=== PATIENT | female | born 1990 | race Hispanic/Latino ===

== ENCOUNTER 2017-12-31 14:05 | Emergency (ER) | payer OTHER ==
[2017-12-31 15:49] LABS: Absolute Monocytes 1.4 K/uL (0.1-1.3); Absolute Neutrophil 17.3 K/uL (1.8-8.0); Basophils % 0.2 % (0-1.3); Eosinophils % 0.2 % (0-4.4); Hematocrit 31.1 % (36.0-45.0); Lymphocytes % 9.8 % (15.3-44.8); MCH 25.7 pg (27.0-35.0); MCV 83.9 fL (80-100); MPV 8.1 fL (7.6-11.3); Monocytes % 6.5 % (3.3-12.3)
[2017-12-31] MEDS ORDERED: NA CHLORIDE 0.9% 1,000 ML ONE ×2 (15:50→17:56)
[2017-12-31 15:57] LABS: Bicarbonate 25 mEq/L (21-31); Glucose Level 89 mg/dL (65-120); Lipase 18 U/L (22-51); Potassium 3.7 mEq/L (3.6-5.0); Sodium Level 139 mEq/L (135-145)
[2017-12-31 16:03] LABS: ALT/SGPT 17 IU/L (10-60); AST/SGOT 13 IU/L (10-42); Albumin 3.4 g/dL (3.2-5.5); Alkaline Phosphatase 145 IU/L (42-121); BUN Blood Urea Nitrogen 9 mg/dL (6-20); Bilirubin Direct 0.1 mg/dL (0-0.2); Bilirubin Total 0.6 mg/dL (0.3-1.2)
[2017-12-31 16:05] LABS: Urine Bacteria <20 /HPF (<20); Urine Culture Reflex Order NOT NEEDED; Urine RBC <5 /HPF (NONE SEEN)
--- NOTE | 2017-12-31 16:35 | RAD REPORT ---
EXAM DESCRIPTION: US - Transvaginal Study Probe - 12/31/2017 3:49 pm CLINICAL HISTORY: Vaginal bleeding, recent COMPARISON: None. TECHNIQUE: Endovaginal sonography was performed. FINDINGS: Left ovary was not identifiable. No left adnexal mass seen. Right ovary and right adnexa s how no suspicious findings. Small amount a hemorrhagic material is still present along the endometrial cavity. No large mass or h ematoma. No mass or hematoma within the myometrium. Along the anterior margin of the uterus there is no suspicious mass or hematoma identifiable. IMPRESSION: Small amount of hemorrhagic material remaining in the endometrial cavity. No other signi ficant findings noted.
--- NOTE | 2017-12-31 16:36 | RAD REPORT ---
EXAM DESCRIPTION: US - Extremity Nonvascular Complete - 12/31/2017 3:50 pm CLINICAL HISTORY: Recent , draining wound COMPARISON: None. FINDINGS: Sonographic evaluation of the soft tissues performed at the site of . At the skin surface and extending 4-5 cm deep to the skin surface there is no abscess, hematoma or other focal a bnormality identifiable. IMPRESSION: No abscess, hematoma or focal abnormality identified.
--- NOTE | 2017-12-31 17:20 | RAD REPORT ---
EXAM DESCRIPTION: CT - Abdomen Pelvis W Contrast - 12/31/2017 5:09 pm CLINICAL HISTORY: Abdominal pain, pelvic pain, recent with continued wound drainage COMPARISON: Ultrasound imaging same date TECHNIQUE: Biphasic, helical CT imaging of the abdomen and pelvis was performed following 100 ml non -ionic IV contrast. Oral contrast was given. All CT scans are performed using dose optimization technique as appropriate and may include automated exposure control or mA/KV adjustment according to patient size. FINDINGS: No suspicious findings in the lung bases. The liver, spleen, and pancreas show no suspicious findings. Gallbladder and biliary tree are also wi thout suspicious finding. Symmetric renal function is seen with no hydronephrosis or suspicious renal mass. No pyelonephritis o r acute renal parenchymal process. No urinary bladder abnormality seen. No gastric dilatation or gastric wall thickening. No acute large or small bowel finding. No free int raperitoneal air or free intraperitoneal fluid. No bulky lymphadenopathy. Lobulated uterus is presen t not unexpected for recent . Hypodensity within the vaginal vault is presumed to be remnant hemorrhagic material. No suspicious ovarian finding. Within the peritoneal cavity there is no absces s. There is a minimal amount of stranding between the uterus in the anterior abdominal wall. There is stranding, air and small amount of fluid in the subcutaneous fatty tissues between the incisions IA in the lower abdominal musculature. No drainable fluid collection. No suspicious bony findings. IMPRESSION: Air, fluid and stranding in the subcutaneous fatty tissues between the skin incision sit e and the lower abdominal wall musculature. There is some edema within the musculature at the incisio n site. Within the subcutaneous fatty tissues, no drainable fluid collection. Minimal stranding within the peritoneal and lower pelvic extraperitoneal space. This is not unexpecte d. Within the peritoneal/ retroperitoneal spaces there is no abnormal fluid collection.
--- NOTE | 2017-12-31 17:44 | ER ---
Nurse's Notes [facility] Name: Forrest More Age: 27 yrs Sex: Female : 1990 Arrival Date: 12/31/2017 Time: 14:25 Bed 26 Private MD: Diagnosis: Infection of obstetric surgical [id number]. Abscess with cellulitis;Wound dehiscence Presentation: 12/31 14:27 Presenting complaint: EMS states: incisional drainage, started today, tl3 extremely foul smelling oozing a lot of pus and serous fluid, tender to touch, soaked two packs of 4X4's cleaning up on arrival. Transition of care: patient was not received from another setting of care. Onset of symptoms was December 31, 2017. Initial Sepsis Screen: Does the patient meet any 2 criteria? No. Patient's initial sepsis screen is negative. Does the patient have a suspected source of infection? Yes: Skin breakdown/wound. Care prior to arrival: None. 14:27 Method Of Arrival: EMS: [facility] tl3 14:27 Acuity: TAMMY 3 tl3 Triage Assessment: 14:31 General: Appears distressed, uncomfortable, well developed, well nourished, Behavior is tl3 calm, cooperative, appropriate for age, anxious, restless. Pain: Complains of pain in groin. EENT: No signs and/or symptoms were reported regarding the EENT system. Neuro: No deficits noted. Level of Consciousness is awake, alert, obeys commands, Oriented to person, place, time, situation, Appropriate for age. Cardiovascular: No deficits noted. Heart tones S1 S2 present. Respiratory: Airway is patent Trachea midline Respiratory effort is even, unlabored, Respiratory pattern is regular, symmetrical, Breath sounds are clear bilaterally. GI: No signs and/or symptoms were reported involving the gastrointestinal system. : No signs and/or symptoms were reported regarding the genitourinary system. Derm: Skin part of incision on right side oozing copious amounts of pus and serous fluid Skin is moist, Skin is Skin temperature is warm Wound noted incision. Musculoskeletal: No deficits noted. 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 - Social history:: Smoking status: Patient/guardian denies using tobacco, never smoked. Screenin:40 Abuse screen: Denies threats or abuse. Nutritional screening: No deficits noted. tl3 Tuberculosis screening: No symptoms or risk factors identified. Fall Risk None identified. Assessment: 14:39 General: Appears distressed, uncomfortable, well groomed, well developed, well tl3 nourished, Behavior is cooperative, appropriate for age, anxious. 15:40 Reassessment: No changes from previously documented assessment. Patient and/or family tl3 updated on plan of care and expected duration. Pain level reassessed. Patient is alert, oriented x 3, equal unlabored respirations, skin warm/dry/pink. family at bedside, pt made as comfortable as possible. 16:25 Reassessment: No changes from previously documented assessment. Patient and/or family tl3 updated on plan of care and expected duration. Pain level reassessed. Patient is alert, oriented x 3, equal unlabored respirations, skin warm/dry/pink. wound redressed, bedding and gown changed. 18:27 Reassessment: Patient appears in no apparent distress at this time. No changes from tl3 previously documented assessment. Patient and/or family updated on plan of care and expected duration. Pain level reassessed. Patient is alert, oriented x 3, equal unlabored respirations, skin warm/dry/pink. abx infusing without difficulty, pt resting. Vital Signs: 14:31 BP 136 / 89; Pulse 84; Resp 18; Pulse Ox 100% ; tl3 14:31 Temp 98.0(O); tl3 15:40 BP 151 / 67; Pulse 91; Resp 18; Pulse Ox 100% on R/A; tl3 16:25 BP 146 / 79; Pulse 111; Resp 18; Pulse Ox 99% ; tl3 18:27 BP 146 / 76; Pulse 101; Resp 16; Pulse Ox 99% ; tl3 18:39 Temp 100.7(O); tl3 ED Course: 14:25 Patient arrived in ED. tl3 14:26 Anam Bone NP is [facility]. pm1 14:26 Dexter Aguirre MD is Attending Physician. pm1 14:27 Jeannie Mclean, RN is Primary Nurse. tl3 14:30 Triage completed. tl3 14:31 Arm band placed on right wrist. Patient placed in an exam room, on pulse oximetry, tl3 Patient wound and pt cleaned of drainage, fluid gushes out with any movement or pressure, started today. 4x4's placed to incision. 15:40 Resting quietly. Awaiting lab results. tl3 15:40 Patient has correct armband on for positive identification. Placed in gown. Bed in low tl3 position. Call light in reach. Side rails up X2. Child being held by parent. Pulse ox on. NIBP on. 15:40 No provider procedures requiring assistance completed. Inserted saline lock: 20 gauge tl3 in left antecubital area, using aseptic technique. Blood collected. 15:40 Initial lab(s) drawn, by me, sent to lab. First set of blood cultures drawn Second set tl3 of blood cultures drawn Wound culture swab sent to lab. 15:47 Ultrasound completed. Patient tolerated well. aa4 15:48 Extremity Nonvascular Complete In Process Unspecified. EDMS 15:48 Transvaginal Study Probe In Process Unspecified. EDMS 16:[address] via stretcher. cw1 17:09 CT Abd/Pelvis - W/Contrast In Process Unspecified. EDMS 17:22 CT completed. Patient moved back from CT. cw1 17:46 initiated transfer with Gertrude ARMENTA from [facility]. eb 18:24 Dr Henderson from [facility] connected with Anam Bone for patient transfer eb consultation. 18:42 \T\[id number] Dr. Mike Olivas accepted the patient for transfer/ \T\[id number] Administrative eb approval given by [facility]. The patient will be going to med-surg and the room assignment will be given upon arrival. The [facility] team will be coming to fly the patient out as per request of Dr. Olivas. 19:51 Report given to Jamee Velasquez RN with [employer]. tl3 19:51 Mcgarry cath inserted, using sterile technique, 16 Fr., by me, balloon inflated, to tl3 gravity drainage. 19:57 Patient transferred, IV remains in place. tl3 Administered Medications: 15:51 Drug: NS 0.9% 1000 ml Route: IV; Rate: 1000 ml; Site: left antecubital; Delivery: tl3 Primary tubing; 16:05 Follow up: IV Status: Completed infusion; IV Intake: 1000ml tl3 18:00 Drug: vancoMYCIN 1 grams Route: IVPB; Infused Over: 2 hrs; Site: left antecubital; tl3 Delivery: Primary tubing; 19:59 Follow up: IV Status: Completed infusion; IV Intake: 250ml tl3 18:18 Not Given (Duplicate Order): Zosyn 3.375 grams IVPB once over 60 mins; (mix in NS 100 tl3 mL) 18:18 CANCELLED (Duplicate Order): vancoMYCIN 1 grams IVPB once over 2 hrs tl3 18:46 Drug: Tylenol 1000 mg Route: PO; tl3 20:00 Follow up: Response: No adverse reaction; Temperature is decreased tl3 19:59 Drug: Zosyn 3.375 grams Route: IVPB; Infused Over: 60 mins; Site: left antecubital; tl3 Delivery: Primary tubing; 20:00 Follow up: IV Status: Infusion continued upon transfer tl3 Intake: 16:05 IV: 1000ml; Total: 1000ml. tl3 19:59 IV: 250ml; Total: 1250ml. tl3 Outcome: 17:44 ER care complete, transfer ordered by . pm1 19:57 Transferred by helicopter [facility] tl3 19:57 Condition: stable 19:57 Instructed on the need for transfer. 20:01 Patient left the ED. tl3 Signatures: Dispatcher [employer] EDMS Franchesca Begum aa4 Cathy Le cw1 Anam Bone, AMY GRAPHITE GRINDER pm1 Jeannie Mclean RN RN tl3 Tanya Rojo Corrections: (The following items were deleted from the chart) 18:42 18:24 from [facility] connected with Anam Bone for patient transfer eb consultaion eb
--- NOTE | 2017-12-31 17:44 | EDPHYS ---
Physician Documentation [facility] Name: Forrest More Age: 27 yrs Sex: Female : 1990 Arrival Date: 12/31/2017 Time: 14:25 Bed 26 Private MD: ED Physician Dexter Aguirre HPI: 12/31 16:00 This 27 yrs old Female presents to ER via EMS with complaints of Incisional pm1 Drainage. 18:34 the patient presents with a swollen area of the suprapubic area, pain and draiange. pm1 Description: draining. Patient with section 9 days ago at [facility] of 27 week old infant due to prelabor rupture of membranes. Patient with complications of cervical cerclage and cervical insufficiency. A0. Patient noted pressure and pain to her surgical wound for the past 3 days. Chills on and off. Drainage onset today from her wound with dehiscence. Foul smelling drainage, brownish coloration . surgery performed by Dr. Adiel Isidro. Ob care Dr. Chacon. 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 - Social history:: Smoking status: Patient/guardian denies using tobacco, never smoked. ROS: 18:34 Eyes: Negative for injury, pain, redness, and discharge, ENT: Negative for injury, pm1 pain, and discharge, Neck: Negative for injury, pain, and swelling, Cardiovascular: Negative for chest pain, palpitations, and edema, Respiratory: Negative for shortness of breath, cough, wheezing, and pleuritic chest pain. 18:34 Back: Negative for injury and pain, : Negative for injury, bleeding, discharge, and swelling, MS/Extremity: Negative for injury and deformity, Neuro: Negative for headache, weakness, numbness, tingling, and seizure. 18:34 Constitutional: Positive for chills. 18:34 Abdomen/GI: Positive for suprapubic abdominal pain over section surgical wound, Negative for nausea, vomiting, and diarrhea. 18:34 Skin: Positive for Wound dehiscence and drainage onset today from . Exam: 18:34 Constitutional: This is a well developed, well nourished patient who is awake, alert, pm1 and in no acute distress. Head/Face: Normocephalic, atraumatic. Eyes: Pupils equal round and reactive to light, extra-ocular motions intact. Lids and lashes normal. Conjunctiva and sclera are non-icteric and not injected. Cornea within normal limits. Periorbital areas with no swelling, redness, or edema. Chest/axilla: Normal chest wall appearance and motion. Nontender with no deformity. No lesions are appreciated. Cardiovascular: Regular rate and rhythm with a normal S1 and S2. No gallops, murmurs, or rubs. Normal PMI, no JVD. No pulse deficits. Respiratory: Lungs have equal breath sounds bilaterally, clear to auscultation and percussion. No rales, rhonchi or wheezes noted. No increased work of breathing, no retractions or nasal flaring. 18:34 Back: No spinal tenderness. No costovertebral tenderness. Full range of motion. 18:34 MS/ Extremity: Pulses equal, no cyanosis. Neurovascular intact. Full, normal range of motion. 18:34 Abdomen/GI: Inspection: scar(s), are noted in the suprapubic area, wound dehiscence, midline, 1 cm in size with oozing drainage, Bowel sounds: normal, Palpation: soft, moderate abdominal tenderness, in the suprapubic area, rebound tenderness, is not appreciated. 18:34 Skin: Appearance: normal except for affected area, abscess, that is moderate sized, of the suprapubic area, with drainage, with surrounding cellulitis. 18:34 Neuro: Orientation: is normal, Motor: is normal, moves all fours. Vital Signs: 14:31 BP 136 / 89; Pulse 84; Resp 18; Pulse Ox 100% ; tl3 14:31 Temp 98.0(O); tl3 15:40 BP 151 / 67; Pulse 91; Resp 18; Pulse Ox 100% on R/A; tl3 16:25 BP 146 / 79; Pulse 111; Resp 18; Pulse Ox 99% ; tl3 18:27 BP 146 / 76; Pulse 101; Resp 16; Pulse Ox 99% ; tl3 18:39 Temp 100.7(O); tl3 MDM: 14:26 Patient medically screened. pm1 17:38 Data reviewed: vital signs. Data interpreted: Pulse oximetry: on room air is 100 %. pm1 Interpretation: normal. 17:38 Counseling: I had a detailed discussion with the patient and/or guardian regarding: the pm1 historical points, exam findings, and any diagnostic results supporting the discharge/admit diagnosis, lab results, radiology results, the need to transfer to another facility. 18:40 Physician consultation: was contacted at 18:32, regarding regarding transfer, patient's pm1 condition, and will see patient Dr. Olivas would like patient transferred by their [facility] team. 12/31 14:49 Order name: Basic Metabolic Panel; Complete Time: 16:35 pm12/31 14:49 Order name: CBC with Diff; Complete Time: 16:35 pm12/31 14:49 Order name: Hepatic Function; Complete Time: 16:35 pm12/31 14:49 Order name: Lipase; Complete Time: 16:35 pm12/31 14:49 Order name: Urine Microscopic Only; Complete Time: 16:35 pm12/31 14:49 Order name: CT Abd/Pelvis - W/Contrast; Complete Time: 17:30 pm12/31 15:01 Order name: Procalcitonin; Complete Time: 16:35 pm12/31 15:01 Order name: Lactate; Complete Time: 16:03 pm12/31 15:01 Order name: Blood Culture Adult (2) pm1 12/31 15:36 Order name: Urine Dipstick--Ancillary (enter results); Complete Time: 19:01 eb 12/31 15:36 Order name: Urine --Ancillary (enter results); Complete Time: 19:01 eb 12/31 15:39 Order name: Wound Culture tl3 12/31 14:49 Order name: IV Saline Lock; Complete Time: 15:48 pm12/31 14:49 Order name: Labs collected and sent; Complete Time: 15:48 pm12/31 14:49 Order name: Urine Dipstick-Ancillary (obtain specimen); Complete Time: 15:48 pm12/31 15:01 Order name: NPO; Complete Time: 15:48 pm12/31 15:19 Order name: Extremity Nonvascular Complete; Complete Time: 16:39 EDMS 12/31 15:48 Order name: Transvaginal Study Probe; Complete Time: 16:39 EDMS Administered Medications: 15:51 Drug: NS 0.9% 1000 ml Route: IV; Rate: 1000 ml; Site: left antecubital; Delivery: tl3 Primary tubing; 16:05 Follow up: IV Status: Completed infusion; IV Intake: 1000ml tl3 18:00 Drug: vancoMYCIN 1 grams Route: IVPB; Infused Over: 2 hrs; Site: left antecubital; tl3 Delivery: Primary tubing; 19:59 Follow up: IV Status: Completed infusion; IV Intake: 250ml tl3 18:18 Not Given (Duplicate Order): Zosyn 3.375 grams IVPB once over 60 mins; (mix in NS 100 tl3 mL) 18:18 CANCELLED (Duplicate Order): vancoMYCIN 1 grams IVPB once over 2 hrs tl3 18:46 Drug: Tylenol 1000 mg Route: PO; tl3 20:00 Follow up: Response: No adverse reaction; Temperature is decreased tl3 19:59 Drug: Zosyn 3.375 grams Route: IVPB; Infused Over: 60 mins; Site: left antecubital; tl3 Delivery: Primary tubing; 20:00 Follow up: IV Status: Infusion continued upon transfer tl3 Disposition: 01/01 12:38 Co-signature as Attending Physician, Dexter Aguirre MD. Disposition: 12/31/17 17:44 [facility] to [facility]. Diagnosis are Infection of obstetric surgical wound - . Abscess with cellulitis, Wound dehiscence. - Reason for transfer: Higher level of care. - Accepting physician is Sanna. - Condition is Stable. - Problem is new. - Symptoms have improved. Signatures: Dispatcher [employer] EDMS Anam Bone, MEDICAL ONCOLOGY PHYSICIAN MEDICAL ONCOLOGY PHYSICIAN pm1 Dexter Aguirre MD MD Jeannie Mclean RN RN tl3 Corrections: (The following items were deleted from the chart) 12/31 15:19 14:55 Extrmty Nonvasular Limited+US.RAD.BRZ ordered. EDMS EDMS 15:48 14:50 Pelvis Complete+US.RAD.BRZ ordered. EDMS EDMS 18:18 18:18 vancoMYCIN 1 grams IVPB once over 2 hrs ordered. tl3 tl3
[2017-12-31] MEDS ORDERED: PIPER/TAZO/NS 3.375gm 3.375 GM/100 ML BAG ONE (17:56)
[2017-12-31] MEDS ORDERED: VANCOMYCIN/NS 1 gm 1 GM/250 ML BAG ONE (17:56)
[2017-12-31] MEDS ORDERED: ACETAMINOPHEN 500 MG TAB ONE (18:42)
[2017-12-31 18:58] LABS: Urine Blood TRACE (NEG); Urine Glucose NEGATIVE (NEG); Urine Protein NEGATIVE (NEG); Urine Specific Gravity 1.005 (1.005-1.030); Urine pH 6.5 (5.0-7.0)
== END 2017-12-31 20:01 ==
LOC: ER 14:05
DX: O86.0 Infection of obstetric surgical wound (principal); L03.311 Cellulitis of abdominal wall
CPT/HCPCS: 36415; 51702; 74177; 76830; 76881; 80048; 80076; 81003; 81015; 81025; 83605; 83690; 84145; 85025; 87040; 87070; 87205; 96365; 96366; 96375; 99285; J2543; J3370; J7030; Q9967

== ENCOUNTER 2022-08-09 20:24 | Emergency (ER) | payer OTHER, SELFPAY ==
--- OUTSIDE RECORDS SUMMARY | 2022-08-09 20:29 | XMS REPORT | Continuity of Care Document ---
:1990 Author Organization [facility] t Address [address] [place] [address] Care Team Providers Name Role Phone Unavailable Unavailable Unavailable Payers Payer Name Policy Type Policy Number Effective Date Expiration Date S ource Problems This patient has no known problems. Allergies, Adverse Reactions, Alerts Allergy Allergy Status Severity Reaction(s) Onset Inactive Treating Comm ents Source Name Type Date Date Clinician erythrom DA Active [facility]- [place] [facility] 00:[facility]: d 00 [facility] adhesive DA Active [place] 2018-0 [facility] tape 8 [place] [facility] Active [place] 0 [facility] y[facility] 4-11 [place] 00:00: [facility] 00 are [facility] erythrom DA Active [place] 0 [facility] y[facility] 4-30 [place] [facility] 00:[facility]: d 00 [facility] adhesive DA Active [place] 2017-0 [facility] tape 4-30 [place] 00:[facility]: d 00 [facility] Medications This patient has no known medications. Procedures This patient has no known procedures. Results Test Description Test Time Test Comments Results Result [facility] e Comments SURGICAL SPECIMENS 2019-05-17 13:27:00 --------RUN DATE: 05/17/19 Becki Gaston LAB *LIVE* PAGE 1 RUN TIME: 1327 Specimen Inquiry RUN USER: INTERFACE --------PAT[facility] #: [id number] AGE/SX: 29/F ROOM: [facility] RE05/15/19REG DR: Gilma Cardoza : 91 BED: 1 DIS: 05/16/19 STATUS: DIS IN TLOC: -------- SPEC #: [id number] RECD: 05/15/19 STATUS: ЕКАТЕРИНА SHANE #: [id number] MARTHA: 05/15/[address]: Gilma Cardoza MD ENTERED: 05/15/19 SP TYPE: SURG OTHR DR: ORDERED: PATHGM5/2, PATH SPEC, H E STAIN/2, IRON STAIN, PAS STAIN, TRICHROME STAIN, PAS WO.STAIN HISTOLOGY: TISSUE ID BLK PCS ANIYA LEV / PROCEDURE DISPOSITION ____ ___ ___ ___ ___ LIVER WEDGE BX A 1 2 1 STOMACH RESECT B 2 1 TISSUES: A. LIVER WEDGE BIOPSY - Liver Biopsy B. STOMACH SUBTOTAL RESECTION - Partial Stomach CLINICAL HISTORY Morbid Obesity COMMENT Overall, the findings are consistent with fatty liver disease without steatohepatitis. There is relatively abundant steatosis, but without hepatocyte ballooning or lobular inflammation. Mild fibrosis is seen and is centered around the central veins. No significant portal tract inflammation or fibrosis is seen. Clinical correlation is recommended. FINAL DIAGNOSIS A-LIVER, WEDGE BIOPSY: - Fatty liver disease, total ANA score = 2. - Macrovesicular steatosis, score 2 - Approximately 60% of hepatocytes with large droplet number of vesicular steatosis. - No lobular inflammation, score 0. - No hepatocyte ballooning identified, score 0. - Fibrosis, stage 1A. - Mild zone 3 fibrosis with some extension into sinusoidal tracts. - Fibrosis is highlighted by Trichrome stain. - Occasional glycogenated nuclei. - Iron stain, negative for increased iron stores (0+). - PAS positive globules are not identified on PAS special stains. B-STOMACH, SLEEVE GASTRECTOMY: - Stomach with no pathologic change. CONTINUED ON NEXT PAGE --------RUN DATE: 05/17/19 Becki LUCERO *LIVE* PAGE 2 RUN TIME: 1327 Specimen Inquiry RUN USER: INTERFACE --------SPEC #: [id number] PATIENT: KVNG CHIANG #[id number] (Continued) GROSS DESCRIPTION A-LIVER BIOPSY: Received in formalin labeled "liver biopsy" is a single wedge-shaped portion of liver tissue (1.4 x 0.9 x 0.3 cm). The specimen is entirely submitted in a single cassette. B-PARTIAL STOMACH: Received in formalin labeled "partial stomach" is a sleeve gastrectomy specimen (22.5 cm x 4.5 x 2.0 cm). The serosal surface is ndiaye-pink, smooth and glistening. The serosal surface is ndiaye-pink velvety with a normal rugal folding pattern. No masses or lesions are seen. Staking Press Operator sections are submitted in cassettes B1-B2. HLH/eb MICROSCOPIC DESCRIPTION Microscopic performed. Signed SIGNATURE ON FILE Ozzy Crainricky Mckay 05/17/19 1327 -------- END OF REPORT BASIC METABOLIC PANEL 2019-05-16 07:01:00 Test Item Value Reference Range Interpretation Comme nts SODIUM (test code = NA) 139 MMOL/L 136-143 N POTASSIUM (test code = K) 4.3 MMOL/L 3.5-5.1 N CHLORIDE (test code = CL) 106 MMOL/L 98-107 CARBON DIOXIDE (test code = 14 mmol/L 24-31 L CO2) GLUCOSE (test code = GLU) 124 mg/dL 70-104 H BLOOD UREA NITROGEN (test 3.8 MG/DL 7.0-21.0 L code = BUN) GLOMERULAR FILTRATION RATE >=60 max estimate >60 The estimated glomerular (test code = GFR) filtration rate is computed usingpatient ra ce, age (>18), sex, and serum creatinine. If anyof the neede d data elements are mi ssing the Laboratory tessa ot compute an estimation of t he glomerular filtration rate . CREATININE (test code = 0.5 mg/dL 0.8-1.5 L CREAT) CALCIUM (test code = CA) 9.3 mg/dL 8.8-10.2 N [id number] 06:46:00 Test Item Value Reference Range Interpretation Comments PHOSPHOROUS (test code = PHOS) 3.0 mg/dL 2.7-4.5 N [id number] 06:44:00 Test Item Value Reference Range Interpretation Comments MAGNESIUM (test code = MAG) 2.3 mg/dL 1.4-2.6 N CBC W/AUTO [id number] 06:32:00 Test Item Value Reference Range Interpretation Comments WHITE BLOOD CELL (test code = 11.5 x10 3/uL 4.8-10.8 H WBC) RED BLOOD CELL (test code = 4.64 x10 6/uL 4.20-5.40 N RBC) HEMOGLOBIN (test code = HGB) 12.6 g/dL 14.5-20 L HEMATOCRIT (test code = HCT) 41.0 % 37.0-47.0 N MEAN CELL VOLUME (test code = 88.4 fL 81.0-99.0 N MCV) MEAN CELL HGB (test code = MCH) 27.2 pg 27-31 N MEAN CELL HGB CONCENTRATION 30.7 G/DL 33-36.5 L (test code = MCHC) RED CELL DISTRIBUTION WIDTH 13.6 % 12.9-16.9 N (test code = RDW) PLATELET COUNT (test code = 308 150-440 N PLT) MEAN PLATELET VOLUME (test code 10.8 fL 8.9-12.4 N = MPV) NEUTROPHIL % (test code = NT%) 75.5 % 42.2-75.2 H LYMPHOCYTE % (test code = LY%) 17.5 % 20.5-51.1 L MONOCYTE % (test code = MO%) 6.5 % 1.7-9.3 N EOSINOPHIL % (test code = EO%) 0.0 % 0.0-7.0 N BASOPHIL % (test code = BA%) 0.2 % 0-2.5 N NEUTROPHIL # (test code = NT#) 8.65 x10 3/uL 1.80-7.70 H LYMPHOCYTE # (test code = LY#) 2.01 x10 3/uL 1.00-4.80 N MONOCYTE # (test code = MO#) 0.74 x10 3/uL 0.00-0.80 N EOSINOPHIL # (test code = EO#) 0.00 x10 3/uL 0.00-0.45 N BASOPHIL # (test code = BA#) 0.02 x10 3/uL 0.0-0.20 N HCG SERUM [id number] 08:48:00 Test Item Value Reference Range Interpretation Comments HCG SERUM QUAL (test code = HCGQL) NEGATIVE NEGATIVE DATE OF LAST MENSTRUAL PERIOD: 03/29/19BASI METABOLIC [id number] 15:54:00 Test Item Value Reference Range Interpretation Comments SODIUM (test code 135 MMOL/L 136-143 L = NA) POTASSIUM (test 4.2 MMOL/L 3.5-5.1 N code = K) CHLORIDE (test 96 MMOL/L 98-107 L code = CL) CARBON DIOXIDE 26 mmol/L 24-31 N (test code = CO2) GLUCOSE (test code 140 mg/dL 70-104 H = GLU) BLOOD UREA 10.2 MG/DL 7.0-21.0 N NITROGEN (test code = BUN) GLOMERULAR >=60 max >60 The estimated FILTRATION RATE estimate glomerular (test code = GFR) filtration rate is computed usingpatient ra ce, age (>18), sex, and serum creatinin e. If anyof the neede d data elements a re missing the Laboratory tessa ot compute an estimation of t he glomerular filtration rate . CREATININE (test 0.4 mg/dL 0.8-1.5 L code = CREAT) CALCIUM (test code 9.3 mg/dL 8.8-10.2 N = CA) CBC W/AUTO [id number] 15:44:00 Test Item Value Reference Range Interpretation Comments WHITE BLOOD CELL (test code = 8.0 x10 3/uL 4.8-10.8 N WBC) RED BLOOD CELL (test code = 4.88 x10 6/uL 4.20-5.40 N RBC) HEMOGLOBIN (test code = HGB) 13.2 g/dL 14.5-20 L HEMATOCRIT (test code = HCT) 42.0 % 37.0-47.0 N MEAN CELL VOLUME (test code = 86.1 fL 81.0-99.0 N MCV) MEAN CELL HGB (test code = MCH) 27.0 pg 27-31 N MEAN CELL HGB CONCENTRATION 31.4 G/DL 33-36.5 L (test code = MCHC) RED CELL DISTRIBUTION WIDTH 13.4 % 12.9-16.9 N (test code = RDW) PLATELET COUNT (test code = 324 150-440 N PLT) MEAN PLATELET VOLUME (test code 10.6 fL 8.9-12.4 N = MPV) NEUTROPHIL % (test code = NT%) 58.5 % 42.2-75.2 N LYMPHOCYTE % (test code = LY%) 34.3 % 20.5-51.1 N MONOCYTE % (test code = MO%) 5.5 % 1.7-9.3 N EOSINOPHIL % (test code = EO%) 0.8 % 0.0-7.0 N BASOPHIL % (test code = BA%) 0.6 % 0-2.5 N NEUTROPHIL # (test code = NT#) 4.67 x10 3/uL 1.80-7.70 N LYMPHOCYTE # (test code = LY#) 2.74 x10 3/uL 1.00-4.80 N MONOCYTE # (test code = MO#) 0.44 x10 3/uL 0.00-0.80 N EOSINOPHIL # (test code = EO#) 0.06 x10 3/uL 0.00-0.45 N BASOPHIL # (test code = BA#) 0.05 x10 3/uL 0.0-0.20 N CBC W/AUTO [id number] 01:15:00 Test Item Value Reference Range Interpretation Comments WHITE BLOOD CELL (test code = 10.2 K/mm3 3.5-11.0 N WBC) RED BLOOD CELL (test code = RBC) 4.86 M/mm3 4.70-6.10 N HEMOGLOBIN (test code = HGB) 13.4 G/DL 10.4-14.9 N HEMATOCRIT (test code = HCT) 40.9 % 31.5-44.1 N MEAN CELL VOLUME (test code = 84.2 Fl 84.5-98.6 L MCV) MEAN CELL HGB (test code = MCH) 27.6 pg 27.0-34.2 N MEAN CELL HGB CONCETRATION (test 32.8 G/DL 31.5-34.0 N code = MCHC) RED CELL DISTRIBUTION WIDTH (test 13.8 SD 11.5-14.5 N code = RDW) PLATELET COUNT (test code = PLT) 275.0 K/mm3 150-450 N MEAN PLATELET VOLUME (test code = 11.20 fL 7.0-10.5 H MPV) NEUTROPHIL % (test code = NT%) 82.0 % 40-76 H LYMPHOCYTE % (test code = LY%) 13.0 % 20.5-51.1 L MONOCYTE % (test code = MO%) 4.7 % 1.7-9.3 N EOSINOPHIL % (test code = EO%) 0.1 % 0.0-6.0 N BASOPHIL % (test code = BA%) 0.2 % 0.0-2.0 N NEUTROPHIL # (test code = NT#) 8.35 K/mm3 1.8-7.6 H LYMPHOCYTE # (test code = LY#) 1.3 K/mm3 0.6-3.2 N MONOCYTE # (test code = MO#) 0.5 K/mm3 0.3-1.1 N EOSINOPHIL # (test code = EO#) 0.0 K/mm3 0.0-0.4 N BASOPHIL # (test code = BA#) 0.0 K/mm3 0.0-0.1 N MANUAL DIFF REQUIRED (test code = NO DIFF/SCN CRITERIA MDIFF) UA RFLX MICR CULT IF [id number] 01:12:00 Test Item Value Reference Range Interpretation Comments UA COLOR (test code = YELLOW discript YEL/STRAW COLU) UA APPEARANCE (test code CLEAR discript CLEAR = APPU) UA GLUCOSE DIPSTICK (test NEGATIVE mg/dL NEG code = DGLUU) UA BILIRUBIN DIPSTICK NEGATIVE mg/dL NEG (test code = BILU) UA KETONE DIPSTICK (test NEGATIVE mg/dL NEG code = KETU) UA SPECIFIC GRAVITY (test 1.010 SG 1.005-1.030 code = SGU) UA BLOOD DIPSTICK (test NEGATIVE mg/DL NEG code = BALDEMAR) UA PH DIPSTICK (test code 8.0 pH UNITS 5.0-7.0 A = LEONORA) UA PROTEIN DIPSTICK (test 1+ mg/dL NEG A code = PROU) UA UROBILINIOGEN DIPSTICK 0.2 mg/dL <2.0 (test code = URO) UA NITRITE DIPSTICK (test NEGATIVE SCREEN NEG code = CIRA) UA LEUKOCYTE ESTERASE NEGATIVE Leuk/mcL NEGATIVE DIPSTICK (test code = LEUU) UA WBC (test code = WBCU) 1-3 #WBC/HPF 0-3 UA RBC (test code = RBCU) 1-3 #RBC/HPF 0-3 UA SQUAMOUS CELLS (test TRACE /HPF NONE code = SQU) UA CULTURE NEEDED? (test NO, WBC<10 Criteria Culture CHK code = UACULT) less than 18 yrs old, neutropenic, or urological surgery? NOPrimary Indication for Culture: OtherOther Indication: dizzinessUA RFLX MICR CULT IF INDICATED 2019-01-10 00:59:00 Test Item Value Reference Range Interpretation Comments UA COLOR (test code = COLU) YELLOW discript YEL/STRAW UA APPEARANCE (test code = CLEAR discript CLEAR APPU) UA GLUCOSE DIPSTICK (test NEGATIVE mg/dL NEG code = DGLUU) UA BILIRUBIN DIPSTICK (test NEGATIVE mg/dL NEG code = BILU) UA KETONE DIPSTICK (test NEGATIVE mg/dL NEG code = KETU) UA SPECIFIC GRAVITY (test 1.010 SG 1.005-1.030 code = SGU) UA BLOOD DIPSTICK (test NEGATIVE mg/DL NEG code = BALDEMAR) UA PH DIPSTICK (test code = 8.0 pH UNITS 5.0-7.0 A LEONORA) UA PROTEIN DIPSTICK (test 1+ mg/dL NEG A code = PROU) UA UROBILINIOGEN DIPSTICK 0.2 mg/dL <2.0 (test code = URO) UA NITRITE DIPSTICK (test NEGATIVE SCREEN NEG code = CIRA) UA LEUKOCYTE ESTERASE NEGATIVE Leuk/mcL NEGATIVE DIPSTICK (test code = LEUU) UA CULTURE NEEDED? (test Criteria Culture CHK code = UACULT) less than 18 yrs old, neutropenic, or urological surgery? NOPrimary Indication for Culture: OtherOther Indication: dizzinessCOMPREHENSIVE METABOLIC PANEL 2019-01-10 00:56:00 Test Item Value Reference Range Interpretation Comments SODIUM (test code = NA) 133 mmol/L 134-147 L POTASSIUM (test code = 4.2 mmol/L 3.4-5.0 N K) CHLORIDE (test code = 99 mmol/L 100-108 L CL) CARBON DIOXIDE (test 26 mmol/L 21-32 N code = CO2) ANION GAP (test code = 8.0 GAP calc 4.0-15.0 N GAP) GLUCOSE (test code = 123 MG/DL 70-110 H GLU) BLOOD UREA NITROGEN 10 MG/DL 7-18 N (test code = BUN) GLOMERULAR FILTRATION >=60 max estimate >60 RATE (test code = GFR) estGFR CREATININE (test code = 0.7 MG/DL 0.6-1.0 N CREAT) TOTAL PROTEIN (test code 8.3 G/DL 6.4-8.2 H = PROT) ALBUMIN (test code = 4.1 G/DL 3.4-5.0 N ALB) GLOBULIN (test code = 4.2 GM/dL GLOB) ALBUMIN/GLOBULIN RATIO 1.0 RATIO 1.2-2.2 L (test code = A/G) CALCIUM (test code = CA) 9.4 MG/DL 8.5-10.1 N BILIRUBIN TOTAL (test 0.40 MG/DL 0.2-1.2 N code = BILT) SGOT/AST (test code = 56 Unit/L 15-37 H AST) SGPT/ALT (test code = 93 Unit/L 12-78 H ALT) ALKALINE PHOSPHATASE 113 Unit/L 45-117 N TOTAL (test code = ALKP) COMPREHENSIVE METABOLIC [id number] 17:06:00 Test Item Value Reference Range Interpretation Comments SODIUM (test code = NA) 138 mmol/L 134-147 N POTASSIUM (test code = 3.6 mmol/L 3.4-5.0 N K) CHLORIDE (test code = 105 mmol/L 100-108 N CL) CARBON DIOXIDE (test 24 mmol/L 21-32 N code = CO2) ANION GAP (test code = 9.0 GAP calc 4.0-15.0 N GAP) GLUCOSE (test code = 99 MG/DL 70-110 N GLU) BLOOD UREA NITROGEN 10 MG/DL 7-18 N (test code = BUN) GLOMERULAR FILTRATION >=60 max estimate >60 RATE (test code = GFR) estGFR CREATININE (test code = 0.5 MG/DL 0.6-1.0 L CREAT) TOTAL PROTEIN (test code 8.4 G/DL 6.4-8.2 H = PROT) ALBUMIN (test code = 4.1 G/DL 3.4-5.0 N ALB) GLOBULIN (test code = 4.3 GM/dL GLOB) ALBUMIN/GLOBULIN RATIO 1.0 RATIO 1.2-2.2 L (test code = A/G) CALCIUM (test code = CA) 9.2 MG/DL 8.5-10.1 N BILIRUBIN TOTAL (test 0.50 MG/DL 0.2-1.2 N code = BILT) SGOT/AST (test code = 88 Unit/L 15-37 H AST) SGPT/ALT (test code = 116 Unit/L 12-78 H ALT) ALKALINE PHOSPHATASE 90 Unit/L 45-117 N TOTAL (test code = ALKP) LIPID PROFILE (CORONARY RISK)2018-12-02 17:06:00 Test Item Value Reference Range Interpretation Comments TRIGLYCERIDES (test code = TRIG) 281 MG/DL 0-150 H CHOLESTEROL (test code = CHOL) 269 MG/DL 133-200 H CHOLESTEROL/HDL RATIO (test code = 6.40 RATIO >0 CHOLHDL) HDL CHOLESTEROL (test code = HDL) 42 MG/DL 40-59 N NON-HDL CHOLESTEROL (test code = 227 mg/dL <130 H NHDL) LIPOPROTEIN LDL (test code = LDL) 205 MG/DL 0-129 H LDL/HDL (test code = LDL/HDL) 4.88 Ratio 1.48-3.22 Avg H FE W/TOTAL IRON BINDING CAP.2018-12-02 17:06:00 Test Item Value Reference Range Interpretation Comments SERUM IRON (test code = IRON) 74 mcG/DL 50-170 N TOTAL IRON BINDING CAPACITY (test 426 mcG/DL 250-450 N code = TIBC) IRON SATURATION (test code = 17 % calc 12-57 N FESAT) VITAMIN B12 [id number] 17:06:00 Test Item Value Reference Range Interpretation Comments VITAMIN B12 (test code = VITB12) 851 PG/ML 183-986 N FOLIC ACID (test code = FOL) 24.80 NG/ML 3.10-17.50 H FOLATE RBC [id number] 17:06:00 Test Item Value Reference Range Interpretation Comments FOLIC ACID RBC (test 1000 ng/mL >498 Perform ed At: HD code = FOLRBC) [facility] [id number] [place], [place] [id number] Kyle L MD Ph:[phone] FOLATE RBC INTERP 397.9 ng/mL Not Estab. (test code = FOLINT) FOLATE HEMATOCRIT 39.8 % 34.0-46.6 (test code = FOLHCT) T4 [id number] 17:06:00 Test Item Value Reference Range Interpretation Comments T4 FREE (test code = T4F) 0.91 NG/DL 0.89-1.76 N THYROID STIMULATING [id number] 17:06:00 Test Item Value Reference Range Interpretation Comments THYROID STIMULATING HORMONE 1.920 mcIU/ML 0.340-4.820 N (test code = TSH) [id number] 17:06:00 Test Item Value Reference Range Interpretation Comments CORTISOL (test code = 2.9 ug/dL () Corti sheyla AM 6.2 - CORTR) 19.4 Cortisol P M 2.3 - 11.9 [id number] 17:06:00 Test Item Value Reference Range Interpretation Comments FERRITIN (test code = TESFAYE) 93.3 NG/ML 3.0-105.0 N VITAMIN B1 (THIAMINE)2018-12-02 17:06:00 Test Item Value Reference Range Interpretation Comments VITAMIN B1 95.4 nmol/L 66.5-200.0 This test was d eveloped and its (THIAMINE) performance (test code = characteristics determined by VITB1) [facility]. It has not been cleared orappro cady by the Food and Drug Administration. Performed At: [facility] [place], [place] [id number] ra Kamran PATTERSON Ph:[phone] VITAMIN D [id number] 17:06:00 Test Item Value Reference Range Interpretation Comments VITAMIN D 15.2 ng/mL 30.0-100.0 A Vitamin D defic iency has 25-HYDROXY (test been define d by the code = VITD25) [place] [facility] edicine and an Endocrine So [facility] practice guidel ine as alevel of serum 25-OH vitamin D less than 20 ng/mL (1,2).The Endocrine Society went on to further define vitamin Dinsufficiency as a level between 21 and 29 ng/mL (2).1. IOM (Ins titute of Medicine). 2010 . Dietary reference intak es for calcium and D. Day DC: [employer] .2. Aron MF, Floyd CASTANON, Caleb soto MORGAN, et al. Evaluation, treatment, and prevention of vitamin D de ficiency: an Endocrine [facility] clinical practi ce guideline. JCEM . 2010; 96(7):1911-30.P erformed At: [facility] [address] [place], [place] [id number] Lokesh Mckay MD Ph:[phone] COMPREHENSIVE METABOLIC [id number] 15:13:00 Test Item Value Reference Range Interpretation Comments SODIUM (test code = NA) 138 mmol/L 134-147 N POTASSIUM (test code = 3.6 mmol/L 3.4-5.0 N K) CHLORIDE (test code = 105 mmol/L 100-108 N CL) CARBON DIOXIDE (test 24 mmol/L 21-32 N code = CO2) ANION GAP (test code = 9.0 GAP calc 4.0-15.0 N GAP) GLUCOSE (test code = 99 MG/DL 70-110 N GLU) BLOOD UREA NITROGEN 10 MG/DL 7-18 N (test code = BUN) GLOMERULAR FILTRATION >=60 max estimate >60 RATE (test code = GFR) estGFR CREATININE (test code = 0.5 MG/DL 0.6-1.0 L CREAT) TOTAL PROTEIN (test code 8.4 G/DL 6.4-8.2 H = PROT) ALBUMIN (test code = 4.1 G/DL 3.4-5.0 N ALB) GLOBULIN (test code = 4.3 GM/dL GLOB) ALBUMIN/GLOBULIN RATIO 1.0 RATIO 1.2-2.2 L (test code = A/G) CALCIUM (test code = CA) 9.2 MG/DL 8.5-10.1 N BILIRUBIN TOTAL (test 0.50 MG/DL 0.2-1.2 N code = BILT) SGOT/AST (test code = 88 Unit/L 15-37 H AST) SGPT/ALT (test code = 116 Unit/L 12-78 H ALT) ALKALINE PHOSPHATASE 90 Unit/L 45-117 N TOTAL (test code = ALKP) LIPID PROFILE (CORONARY RISK)2018-11-30 15:13:00 Test Item Value Reference Range Interpretation Comments TRIGLYCERIDES (test code = TRIG) 281 MG/DL 0-150 H CHOLESTEROL (test code = CHOL) 269 MG/DL 133-200 H CHOLESTEROL/HDL RATIO (test code = 6.40 RATIO >0 CHOLHDL) HDL CHOLESTEROL (test code = HDL) 42 MG/DL 40-59 N NON-HDL CHOLESTEROL (test code = 227 mg/dL <130 H NHDL) LIPOPROTEIN LDL (test code = LDL) 205 MG/DL 0-129 H LDL/HDL (test code = LDL/HDL) 4.88 Ratio 1.48-3.22 Avg H FE W/TOTAL IRON BINDING CAP.2018-11-30 15:13:00 Test Item Value Reference Range Interpretation Comments SERUM IRON (test code = IRON) 74 mcG/DL 50-170 N TOTAL IRON BINDING CAPACITY (test 426 mcG/DL 250-450 N code = TIBC) IRON SATURATION (test code = 17 % calc 12-57 N FESAT) VITAMIN B12 [id number] 15:13:00 Test Item Value Reference Range Interpretation Comments VITAMIN B12 (test code = VITB12) 851 PG/ML 183-986 N FOLIC ACID (test code = FOL) 24.80 NG/ML 3.10-17.50 H FOLATE RBC [id number] 15:13:00 Test Item Value Reference Range Interpretation Comments FOLIC ACID RBC (test 1000 ng/mL >498 Perform ed At: HD code = FOLRBC) [facility] [place] [address] [place], [place] [id number] Lokesh Mckay MD Ph:[phone] FOLATE RBC INTERP 397.9 ng/mL Not Estab. (test code = FOLINT) FOLATE HEMATOCRIT 39.8 % 34.0-46.6 (test code = FOLHCT) T4 [id number] 15:13:00 Test Item Value Reference Range Interpretation Comments T4 FREE (test code = T4F) 0.91 NG/DL 0.89-1.76 N THYROID STIMULATING [id number] 15:13:00 Test Item Value Reference Range Interpretation Comments THYROID STIMULATING HORMONE 1.920 mcIU/ML 0.340-4.820 N (test code = TSH) [id number] 15:13:00 Test Item Value Reference Range Interpretation Comments CORTISOL (test code = 2.9 ug/dL () Corti sheyla AM 6.2 - CORTR) 19.4 Cortisol P M 2.3 - 11.9 [id number] 15:13:00 Test Item Value Reference Range Interpretation Comments FERRITIN (test code = TESFAYE) 93.3 NG/ML 3.0-105.0 N VITAMIN B1 (THIAMINE)2018-11-30 15:13:00 Test Item Value Reference Range Interpretation Comments VITAMIN B1 (THIAMINE) (test code = VITB1) VITAMIN D [id number] 15:13:00 Test Item Value Reference Range Interpretation Comments VITAMIN D 15.2 ng/mL 30.0-100.0 A Vitamin D defic iency has 25-HYDROXY (test been define d by the code = VITD25) [place] [facility] edicine and an Endocrine So ciety practice guidel ine as alevel of serum 25-OH vitamin D less than 20 ng/mL (1,2).The Endocrine Society went on to further define vitamin Dinsufficiency as a level between 21 and 29 ng/mL (2).1. IOM (Ins titute of Medicine). 2010 . Dietary reference intak es for calcium and D. Day DC: [employer] .2. Aron MF, Floyd [place], Caleb soto MORAGN, et al. Evaluation, treatment, and prevention of vitamin D de ficiency: an Endocrine [facility] clinical practi ce guideline. JCEM . 2010; 96(2):1911-30.P erformed At: [facility] [address] [place], [place] [id number] Lokesh Mckay MD Ph:[phone] COMPREHENSIVE METABOLIC [id number] 11:40:00 Test Item Value Reference Range Interpretation Comments SODIUM (test code = NA) 138 mmol/L 134-147 N POTASSIUM (test code = 3.6 mmol/L 3.4-5.0 N K) CHLORIDE (test code = 105 mmol/L 100-108 N CL) CARBON DIOXIDE (test 24 mmol/L 21-32 N code = CO2) ANION GAP (test code = 9.0 GAP calc 4.0-15.0 N GAP) GLUCOSE (test code = 99 MG/DL 70-110 N GLU) BLOOD UREA NITROGEN 10 MG/DL 7-18 N (test code = BUN) GLOMERULAR FILTRATION >=60 max estimate >60 RATE (test code = GFR) estGFR CREATININE (test code = 0.5 MG/DL 0.6-1.0 L CREAT) TOTAL PROTEIN (test code 8.4 G/DL 6.4-8.2 H = PROT) ALBUMIN (test code = 4.1 G/DL 3.4-5.0 N ALB) GLOBULIN (test code = 4.3 GM/dL GLOB) ALBUMIN/GLOBULIN RATIO 1.0 RATIO 1.2-2.2 L (test code = A/G) CALCIUM (test code = CA) 9.2 MG/DL 8.5-10.1 N BILIRUBIN TOTAL (test 0.50 MG/DL 0.2-1.2 N code = BILT) SGOT/AST (test code = 88 Unit/L 15-37 H AST) SGPT/ALT (test code = 116 Unit/L 12-78 H ALT) ALKALINE PHOSPHATASE 90 Unit/L 45-117 N TOTAL (test code = ALKP) LIPID PROFILE (CORONARY RISK)2018-11-30 11:40:00 Test Item Value Reference Range Interpretation Comments TRIGLYCERIDES (test code = TRIG) 281 MG/DL 0-150 H CHOLESTEROL (test code = CHOL) 269 MG/DL 133-200 H CHOLESTEROL/HDL RATIO (test code = 6.40 RATIO >0 CHOLHDL) HDL CHOLESTEROL (test code = HDL) 42 MG/DL 40-59 N NON-HDL CHOLESTEROL (test code = 227 mg/dL <130 H NHDL) LIPOPROTEIN LDL (test code = LDL) 205 MG/DL 0-129 H LDL/HDL (test code = LDL/HDL) 4.88 Ratio 1.48-3.22 Avg H FE W/TOTAL IRON BINDING CAP.2018-11-30 11:40:00 Test Item Value Reference Range Interpretation Comments SERUM IRON (test code = IRON) 74 mcG/DL 50-170 N TOTAL IRON BINDING CAPACITY (test 426 mcG/DL 250-450 N code = TIBC) IRON SATURATION (test code = 17 % calc 12-57 N FESAT) VITAMIN B12 [id number] 11:40:00 Test Item Value Reference Range Interpretation Comments VITAMIN B12 (test code = VITB12) 851 PG/ML 183-986 N FOLIC ACID (test code = FOL) 24.80 NG/ML 3.10-17.50 H FOLATE RBC [id number] 11:40:00 Test Item Value Reference Range Interpretation Comments FOLIC ACID RBC (test code = FOLRBC) FOLATE HEMATOCRIT (test code = FOLHCT) T4 [id number] 11:40:00 Test Item Value Reference Range Interpretation Comments T4 FREE (test code = T4F) 0.91 NG/DL 0.89-1.76 N THYROID STIMULATING [id number] 11:40:00 Test Item Value Reference Range Interpretation Comments THYROID STIMULATING HORMONE 1.920 mcIU/ML 0.340-4.820 N (test code = TSH) [id number] 11:40:00 Test Item Value Reference Range Interpretation Comments CORTISOL (test code = 2.9 ug/dL () Corti sheyla AM 6.2 - CORTR) 19.4 Cortisol P M 2.3 - 11.9 [id number] 11:40:00 Test Item Value Reference Range Interpretation Comments FERRITIN (test code = TESFAYE) 93.3 NG/ML 3.0-105.0 N VITAMIN B1 (THIAMINE)2018-11-30 11:40:00 Test Item Value Reference Range Interpretation Comments VITAMIN B1 (THIAMINE) (test code = VITB1) VITAMIN D [id number] 11:40:00 Test Item Value Reference Range Interpretation Comments VITAMIN D 15.2 ng/mL 30.0-100.0 A Vitamin D defic iency has 25-HYDROXY (test been define d by the code = VITD25) [facility] edicine and an Endocrine [facility] practice guidel ine as alevel of serum 25-OH vitamin D less than 20 ng/mL (1,2).The Endocrine Society went on to further define vitamin Dinsufficiency as a level between 21 and 29 ng/mL (2).1. IOM (Ins titute of Medicine). 2010 . Dietary reference intak es for calcium and D. Day [place]: [employer] .2. Aron MF, Floyd NC, Caleb i MORGAN, et al. Evaluation, treatment, and prevention of vitamin D de ficiency: an Endocrine [facility] clinical practi ce guideline. JCEM . 2010; 96(7):1911-30.P erformed At: [facility] [id number] [place], [place] [id number] Lokesh Mckay MD Ph:[phone] COMPREHENSIVE METABOLIC [id number] 06:17:00 Test Item Value Reference Range Interpretation Comments SODIUM (test code = NA) 138 mmol/L 134-147 N POTASSIUM (test code = 3.6 mmol/L 3.4-5.0 N K) CHLORIDE (test code = 105 mmol/L 100-108 N CL) CARBON DIOXIDE (test 24 mmol/L 21-32 N code = CO2) ANION GAP (test code = 9.0 GAP calc 4.0-15.0 N GAP) GLUCOSE (test code = 99 MG/DL 70-110 N GLU) BLOOD UREA NITROGEN 10 MG/DL 7-18 N (test code = BUN) GLOMERULAR FILTRATION >=60 max estimate >60 RATE (test code = GFR) estGFR CREATININE (test code = 0.5 MG/DL 0.6-1.0 L CREAT) TOTAL PROTEIN (test code 8.4 G/DL 6.4-8.2 H = PROT) ALBUMIN (test code = 4.1 G/DL 3.4-5.0 N ALB) GLOBULIN (test code = 4.3 GM/dL GLOB) ALBUMIN/GLOBULIN RATIO 1.0 RATIO 1.2-2.2 L (test code = A/G) CALCIUM (test code = CA) 9.2 MG/DL 8.5-10.1 N BILIRUBIN TOTAL (test 0.50 MG/DL 0.2-1.2 N code = BILT) SGOT/AST (test code = 88 Unit/L 15-37 H AST) SGPT/ALT (test code = 116 Unit/L 12-78 H ALT) ALKALINE PHOSPHATASE 90 Unit/L 45-117 N TOTAL (test code = ALKP) LIPID PROFILE (CORONARY RISK)2018-11-30 06:17:00 Test Item Value Reference Range Interpretation Comments TRIGLYCERIDES (test code = TRIG) 281 MG/DL 0-150 H CHOLESTEROL (test code = CHOL) 269 MG/DL 133-200 H CHOLESTEROL/HDL RATIO (test code = 6.40 RATIO >0 CHOLHDL) HDL CHOLESTEROL (test code = HDL) 42 MG/DL 40-59 N NON-HDL CHOLESTEROL (test code = 227 mg/dL <130 H NHDL) LIPOPROTEIN LDL (test code = LDL) 205 MG/DL 0-129 H LDL/HDL (test code = LDL/HDL) 4.88 Ratio 1.48-3.22 Avg H FE W/TOTAL IRON BINDING CAP.2018-11-30 06:17:00 Test Item Value Reference Range Interpretation Comments SERUM IRON (test code = IRON) 74 mcG/DL 50-170 N TOTAL IRON BINDING CAPACITY (test 426 mcG/DL 250-450 N code = TIBC) IRON SATURATION (test code = 17 % calc 12-57 N FESAT) VITAMIN B12 [id number] 06:17:00 Test Item Value Reference Range Interpretation Comments VITAMIN B12 (test code = VITB12) 851 PG/ML 183-986 N FOLIC ACID (test code = FOL) 24.80 NG/ML 3.10-17.50 H FOLATE RBC [id number] 06:17:00 Test Item Value Reference Range Interpretation Comments FOLIC ACID RBC (test code = FOLRBC) FOLATE RBC INTERP (test code = FOLINT) FOLATE HEMATOCRIT (test code = FOLHCT) T4 [id number] 06:17:00 Test Item Value Reference Range Interpretation Comments T4 FREE (test code = T4F) 0.91 NG/DL 0.89-1.76 N THYROID STIMULATING [id number] 06:17:00 Test Item Value Reference Range Interpretation Comments THYROID STIMULATING HORMONE 1.920 mcIU/ML 0.340-4.820 N (test code = TSH) [id number] 06:17:00 Test Item Value Reference Range Interpretation Comments CORTISOL (test code = 2.9 ug/dL () Corti sheyla AM 6.2 - CORTR) 19.4 Cortisol P M 2.3 - 11.9 [id number] 06:17:00 Test Item Value Reference Range Interpretation Comments FERRITIN (test code = TESFAYE) 93.3 NG/ML 3.0-105.0 N VITAMIN B1 (THIAMINE)2018-11-30 06:17:00 Test Item Value Reference Range Interpretation Comments VITAMIN B1 (THIAMINE) (test code = VITB1) VITAMIN D [id number] 06:17:00 Test Item Value Reference Range Interpretation Comments VITAMIN D 25-HYDROXY (test code = VITD25) COMPREHENSIVE METABOLIC [id number] 06:17:00 Test Item Value Reference Range Interpretation Comments SODIUM (test code = NA) 138 mmol/L 134-147 N POTASSIUM (test code = 3.6 mmol/L 3.4-5.0 N K) CHLORIDE (test code = 105 mmol/L 100-108 N CL) CARBON DIOXIDE (test 24 mmol/L 21-32 N code = CO2) ANION GAP (test code = 9.0 GAP calc 4.0-15.0 N GAP) GLUCOSE (test code = 99 MG/DL 70-110 N GLU) BLOOD UREA NITROGEN 10 MG/DL 7-18 N (test code = BUN) GLOMERULAR FILTRATION >=60 max estimate >60 RATE (test code = GFR) estGFR CREATININE (test code = 0.5 MG/DL 0.6-1.0 L CREAT) TOTAL PROTEIN (test code 8.4 G/DL 6.4-8.2 H = PROT) ALBUMIN (test code = 4.1 G/DL 3.4-5.0 N ALB) GLOBULIN (test code = 4.3 GM/dL GLOB) ALBUMIN/GLOBULIN RATIO 1.0 RATIO 1.2-2.2 L (test code = A/G) CALCIUM (test code = CA) 9.2 MG/DL 8.5-10.1 N BILIRUBIN TOTAL (test 0.50 MG/DL 0.2-1.2 N code = BILT) SGOT/AST (test code = 88 Unit/L 15-37 H AST) SGPT/ALT (test code = 116 Unit/L 12-78 H ALT) ALKALINE PHOSPHATASE 90 Unit/L 45-117 N TOTAL (test code = ALKP) LIPID PROFILE (CORONARY RISK)2018-11-30 06:17:00 Test Item Value Reference Range Interpretation Comments TRIGLYCERIDES (test code = TRIG) 281 MG/DL 0-150 H CHOLESTEROL (test code = CHOL) 269 MG/DL 133-200 H CHOLESTEROL/HDL RATIO (test code = 6.40 RATIO >0 CHOLHDL) HDL CHOLESTEROL (test code = HDL) 42 MG/DL 40-59 N NON-HDL CHOLESTEROL (test code = 227 mg/dL <130 H NHDL) LIPOPROTEIN LDL (test code = LDL) 205 MG/DL 0-129 H LDL/HDL (test code = LDL/HDL) 4.88 Ratio 1.48-3.22 Avg H FE W/TOTAL IRON BINDING CAP.2018-11-30 06:17:00 Test Item Value Reference Range Interpretation Comments SERUM IRON (test code = IRON) 74 mcG/DL 50-170 N TOTAL IRON BINDING CAPACITY (test 426 mcG/DL 250-450 N code = TIBC) IRON SATURATION (test code = 17 % calc 12-57 N FESAT) VITAMIN B12 [id number] 06:17:00 Test Item Value Reference Range Interpretation Comments VITAMIN B12 (test code = VITB12) 851 PG/ML 183-986 N FOLIC ACID (test code = FOL) 24.80 NG/ML 3.10-17.50 H FOLATE RBC [id number] 06:17:00 Test Item Value Reference Range Interpretation Comments FOLIC ACID RBC (test code = FOLRBC) FOLATE RBC INTERP (test code = FOLINT) FOLATE HEMATOCRIT (test code = FOLHCT) T4 [id number] 06:17:00 Test Item Value Reference Range Interpretation Comments T4 FREE (test code = T4F) 0.91 NG/DL 0.89-1.76 N THYROID STIMULATING [id number] 06:17:00 Test Item Value Reference Range Interpretation Comments THYROID STIMULATING HORMONE 1.920 mcIU/ML 0.340-4.820 N (test code = TSH) [id number] 06:17:00 Test Item Value Reference Range Interpretation Comments CORTISOL (test code = 2.9 ug/dL () Corti sheyla AM 6.2 - CORTR) 19.4 Cortisol P M 2.3 - 11.9 [id number] 06:17:00 Test Item Value Reference Range Interpretation Comments FERRITIN (test code = TESFAYE) 93.3 NG/ML 3.0-105.0 N VITAMIN B1 (THIAMINE)2018-11-30 06:17:00 Test Item Value Reference Range Interpretation Comments VITAMIN B1 (THIAMINE) (test code = VITB1) VITAMIN D [id number] 06:17:00 Test Item Value Reference Range Interpretation Comments VITAMIN D 15.2 ng/mL 30.0-100.0 A Vitamin D defic iency has 25-HYDROXY (test been define d by the code = VITD25) [facility] edicine and an Endocrine [facility] practice guidel ine as alevel of serum 25-OH vitamin D less than 20 ng/mL (1,2).The Endocrine Society went on to further define vitamin Dinsufficiency as a level between 21 and 29 ng/mL (2).1. IOM (Ins titute of Medicine). 2010 . Dietary reference intak es for calcium and D. Day [place]: [employer] .2. Aron MF, Floyd NC, Caleb soto MORGAN, et al. Evaluation, treatment, and prevention of vitamin D de ficiency: an Endocrine [facility] clinical practi ce guideline. JCEM . 2010; 96(7):1911-30.P erformed At: [facility] [id number] [place], [place] [id number] Kyle L MD Ph:[phone] COMPREHENSIVE METABOLIC [id number] 13:33:00 Test Item Value Reference Range Interpretation Comments SODIUM (test code = NA) 138 mmol/L 134-147 N POTASSIUM (test code = 3.6 mmol/L 3.4-5.0 N K) CHLORIDE (test code = 105 mmol/L 100-108 N CL) CARBON DIOXIDE (test 24 mmol/L 21-32 N code = CO2) ANION GAP (test code = 9.0 GAP calc 4.0-15.0 N GAP) GLUCOSE (test code = 99 MG/DL 70-110 N GLU) BLOOD UREA NITROGEN 10 MG/DL 7-18 N (test code = BUN) GLOMERULAR FILTRATION >=60 max estimate >60 RATE (test code = GFR) estGFR CREATININE (test code = 0.5 MG/DL 0.6-1.0 L CREAT) TOTAL PROTEIN (test code 8.4 G/DL 6.4-8.2 H = PROT) ALBUMIN (test code = 4.1 G/DL 3.4-5.0 N ALB) GLOBULIN (test code = 4.3 GM/dL GLOB) ALBUMIN/GLOBULIN RATIO 1.0 RATIO 1.2-2.2 L (test code = A/G) CALCIUM (test code = CA) 9.2 MG/DL 8.5-10.1 N BILIRUBIN TOTAL (test 0.50 MG/DL 0.2-1.2 N code = BILT) SGOT/AST (test code = 88 Unit/L 15-37 H AST) SGPT/ALT (test code = 116 Unit/L 12-78 H ALT) ALKALINE PHOSPHATASE 90 Unit/L 45-117 N TOTAL (test code = ALKP) LIPID PROFILE (CORONARY RISK)2018-11-29 13:33:00 Test Item Value Reference Range Interpretation Comments TRIGLYCERIDES (test code = TRIG) 281 MG/DL 0-150 H CHOLESTEROL (test code = CHOL) 269 MG/DL 133-200 H CHOLESTEROL/HDL RATIO (test code = 6.40 RATIO >0 CHOLHDL) HDL CHOLESTEROL (test code = HDL) 42 MG/DL 40-59 N NON-HDL CHOLESTEROL (test code = 227 mg/dL <130 H NHDL) LIPOPROTEIN LDL (test code = LDL) 205 MG/DL 0-129 H LDL/HDL (test code = LDL/HDL) 4.88 Ratio 1.48-3.22 Avg H FE W/TOTAL IRON BINDING CAP.2018-11-29 13:33:00 Test Item Value Reference Range Interpretation Comments SERUM IRON (test code = IRON) 74 mcG/DL 50-170 N TOTAL IRON BINDING CAPACITY (test 426 mcG/DL 250-450 N code = TIBC) IRON SATURATION (test code = 17 % calc 12-57 N FESAT) VITAMIN B12 [id number] 13:33:00 Test Item Value Reference Range Interpretation Comments VITAMIN B12 (test code = VITB12) 851 PG/ML 183-986 N FOLIC ACID (test code = FOL) 24.80 NG/ML 3.10-17.50 H FOLATE RBC [id number] 13:33:00 Test Item Value Reference Range Interpretation Comments FOLIC ACID RBC (test code = FOLRBC) FOLATE RBC INTERP (test code = FOLINT) FOLATE HEMATOCRIT (test code = FOLHCT) T4 [id number] 13:33:00 Test Item Value Reference Range Interpretation Comments T4 FREE (test code = T4F) 0.91 NG/DL 0.89-1.76 N THYROID STIMULATING [id number] 13:33:00 Test Item Value Reference Range Interpretation Comments THYROID STIMULATING HORMONE 1.920 mcIU/ML 0.340-4.820 N (test code = TSH) [id number] 13:33:00 Test Item Value Reference Range Interpretation Comments CORTISOL (test code = CORTR) [id number] 13:33:00 Test Item Value Reference Range Interpretation Comments FERRITIN (test code = TESFAYE) 93.3 NG/ML 3.0-105.0 N VITAMIN B1 (THIAMINE)2018-11-29 13:33:00 Test Item Value Reference Range Interpretation Comments VITAMIN B1 (THIAMINE) (test code = VITB1) VITAMIN D [id number] 13:33:00 Test Item Value Reference Range Interpretation Comments VITAMIN D 25-HYDROXY (test code = VITD25) COMPREHENSIVE METABOLIC [id number] 12:52:00 Test Item Value Reference Range Interpretation Comments SODIUM (test code = NA) 138 mmol/L 134-147 N POTASSIUM (test code = K) 3.6 mmol/L 3.4-5.0 N CHLORIDE (test code = CL) 105 mmol/L 100-108 N CARBON DIOXIDE (test code = CO2) 24 mmol/L 21-32 N ANION GAP (test code = GAP) 9.0 GAP calc 4.0-15.0 N GLUCOSE (test code = GLU) 99 MG/DL 70-110 N BLOOD UREA NITROGEN (test code = 10 MG/DL 7-18 N BUN) GLOMERULAR FILTRATION RATE (test estGFR >60 code = GFR) CREATININE (test code = CREAT) MG/DL 0.6-1.0 TOTAL PROTEIN (test code = PROT) G/DL 6.4-8.2 ALBUMIN (test code = ALB) 4.1 G/DL 3.4-5.0 N GLOBULIN (test code = GLOB) GM/dL ALBUMIN/GLOBULIN RATIO (test RATIO 1.2-2.2 code = A/G) CALCIUM (test code = CA) 9.2 MG/DL 8.5-10.1 N BILIRUBIN TOTAL (test code = MG/DL 0.2-1.2 BILT) SGOT/AST (test code = AST) Unit/L 15-37 SGPT/ALT (test code = ALT) Unit/L 12-78 ALKALINE PHOSPHATASE TOTAL (test Unit/L 45-117 code = ALKP) LIPID PROFILE (CORONARY RISK)2018-11-29 12:52:00 Test Item Value Reference Range Interpretation Comments TRIGLYCERIDES (test code = TRIG) MG/DL 0-150 CHOLESTEROL (test code = CHOL) MG/DL 133-200 CHOLESTEROL/HDL RATIO (test code = RATIO >0 CHOLHDL) HDL CHOLESTEROL (test code = HDL) MG/DL 40-59 NON-HDL CHOLESTEROL (test code = NHDL) mg/dL <130 LIPOPROTEIN LDL (test code = LDL) MG/DL 0-129 LDL/HDL (test code = LDL/HDL) Ratio 1.48-3.22 Avg FE W/TOTAL IRON BINDING CAP.2018-11-29 12:52:00 Test Item Value Reference Range Interpretation Comments SERUM IRON (test code = IRON) mcG/DL 50-170 TOTAL IRON BINDING CAPACITY (test mcG/DL 250-450 code = TIBC) IRON SATURATION (test code = FESAT) % calc 12-57 VITAMIN B12 [id number] 12:52:00 Test Item Value Reference Range Interpretation Comments VITAMIN B12 (test code = VITB12) PG/ML 183-986 FOLIC ACID (test code = FOL) NG/ML 3.10-17.50 FOLATE RBC [id number] 12:52:00 Test Item Value Reference Range Interpretation Comments FOLIC ACID RBC (test code = FOLRBC) FOLATE RBC INTERP (test code = FOLINT) FOLATE HEMATOCRIT (test code = FOLHCT) T4 [id number] 12:52:00 Test Item Value Reference Range Interpretation Comments T4 FREE (test code = T4F) NG/DL 0.89-1.76 THYROID STIMULATING [id number] 12:52:00 Test Item Value Reference Range Interpretation Comments THYROID STIMULATING HORMONE (test mcIU/ML 0.340-4.820 code = TSH) [id number] 12:52:00 Test Item Value Reference Range Interpretation Comments CORTISOL (test code = CORTR) TESTOSTERONE FREE AND [id number] 12:52:00 Test Item Value Reference Range Interpretation Comments TESTOSTERONE (test code = TEST) TESTOSTERONE (FREE) (test code = TESTF) [id number] 12:52:00 Test Item Value Reference Range Interpretation Comments FERRITIN (test code = TESFAYE) NG/ML 3.0-105.0 VITAMIN B1 (THIAMINE)2018-11-29 12:52:00 Test Item Value Reference Range Interpretation Comments VITAMIN B1 (THIAMINE) (test code = VITB1) VITAMIN D [id number] 12:52:00 Test Item Value Reference Range Interpretation Comments VITAMIN D 25-HYDROXY (test code = VITD25) GLYCOSYLATED HEMOGLOBIN (HA1C)2018-11-29 12:52:00 Test Item Value Reference Range Interpretation Comments GLYCOSYLATED HEMOGLOBIN (HA1C) 6.3 % A1C 4.2-6.3 N (test code = GLYHGB) CBC W/AUTO [id number] 12:35:00 Test Item Value Reference Range Interpretation Comments WHITE BLOOD CELL (test code = 8.0 K/mm3 3.5-11.0 N WBC) RED BLOOD CELL (test code = RBC) 4.66 M/mm3 4.70-6.10 L HEMOGLOBIN (test code = HGB) 12.7 G/DL 10.4-14.9 N HEMATOCRIT (test code = HCT) 40.2 % 31.5-44.1 N MEAN CELL VOLUME (test code = 86.3 Fl 84.5-98.6 N MCV) MEAN CELL HGB (test code = MCH) 27.3 pg 27.0-34.2 N MEAN CELL HGB CONCETRATION (test 31.6 G/DL 31.5-34.0 N code = MCHC) RED CELL DISTRIBUTION WIDTH (test 13.9 SD 11.5-14.5 N code = RDW) PLATELET COUNT (test code = PLT) 320.0 K/mm3 150-450 N MEAN PLATELET VOLUME (test code = 10.60 fL 7.0-10.5 H MPV) NEUTROPHIL % (test code = NT%) 55.3 % 40-76 N LYMPHOCYTE % (test code = LY%) 38.3 % 20.5-51.1 N MONOCYTE % (test code = MO%) 5.1 % 1.7-9.3 N EOSINOPHIL % (test code = EO%) 1.1 % 0.0-6.0 N BASOPHIL % (test code = BA%) 0.2 % 0.0-2.0 N NEUTROPHIL # (test code = NT#) 4.42 K/mm3 1.8-7.6 N LYMPHOCYTE # (test code = LY#) 3.1 K/mm3 0.6-3.2 N MONOCYTE # (test code = MO#) 0.4 K/mm3 0.3-1.1 N EOSINOPHIL # (test code = EO#) 0.1 K/mm3 0.0-0.4 N BASOPHIL # (test code = BA#) 0.0 K/mm3 0.0-0.1 N MANUAL DIFF REQUIRED (test code = NO DIFF/SCN CRITERIA MDIFF)
[2022-08-09 21:35] LABS: Urine Blood Negative (Negative); Urine Glucose Negative (Negative); Urine Protein Negative (Negative); Urine Specific Gravity 1.025 (1.005-1.030)
[2022-08-09] MEDS ORDERED: predniSONE 20 MG TAB ONE (21:40)
[2022-08-09] MEDS ORDERED: DIPHENHYDRAMINE 25 MG TAB/CAP ONE (21:40)
--- NOTE | 2022-08-09 21:51 | EDPHYS ---
Physician Documentation [facility] Name: Forrest More Age: 32 yrs Sex: Female : 1990 Arrival Date: 08/09/2022 Time: 20:29 Bed Waiting Private MD: ED Physician Wei Galvan HPI: 08/09 21:30 This 32 yrs old Female presents to ER via Ambulatory with complaints of Eye cp Swelling. 21:30 The patient is experiencing redness, swelling, to the left eye, started after "rubbing" cp left eye. Onset: The symptoms/episode began/occurred suddenly, just prior to arrival. Duration: the symptoms are continuous. Associated signs and symptoms: Pertinent positives: itchy, Pertinent negatives: fever. Patient does not utilize any form of vision correction. Severity of symptoms: in the emergency department the symptoms are unchanged. DIRECTOR BROADCAST: 21:26 LMP 07/2022 bb Historical: - Allergies: 21:26 Azithromycin; bb - Home Meds: 21:26 None [Active]; bb - PMHx: 21:26 None; bb - PSHx: 21:26 None; bb - Immunization history:: Adult Immunizations up to date. - Social history:: Smoking status: Patient denies any tobacco usage or history of. ROS: 21:35 Constitutional: Negative for body aches, chills, fever, poor PO intake. cp 21:35 Eyes: Positive for itching, redness, swelling, of the left eye, Negative for injury or cp acute deformity, pain. 21:35 ENT: Negative for drainage from ear(s), ear pain, sore throat, difficulty swallowing, difficulty handling secretions. 21:35 Respiratory: Negative for cough, shortness of breath, wheezing. 21:35 Abdomen/GI: Negative for abdominal pain, nausea, vomiting, and diarrhea. 21:35 Skin: Negative for cellulitis, rash. 21:35 Neuro: Negative for altered mental status, headache, weakness. 21:35 All other systems are negative. Exam: 21:40 Constitutional: The patient appears in no acute distress, alert, awake, non-toxic, well cp developed, well nourished. 21:40 Head/Face: Normocephalic, atraumatic. cp 21:40 Eyes: Periorbital structures: appear normal, Pupils: equal, round, and reactive to light and accomodation, Extraocular movements: intact throughout, Conjunctiva: chemosis, that is moderate, in left eye, mild injection left eye with clear and watery drainage. Lids and lashes: appear normal, on the left. 21:40 ENT: External ear(s): are unremarkable, Nose: is normal, Mouth: Lips: moist, Oral mucosa: pink and intact, moist, Posterior pharynx: Airway: normal. 21:40 Neck: Lymph nodes: no appreciated lymphadenopathy. 21:40 Chest/axilla: Inspection: normal. 21:40 Cardiovascular: Rate: normal. 21:40 Respiratory: the patient does not display signs of respiratory distress, Respirations: normal, no use of accessory muscles, no retractions. 21:40 Skin: cellulitis, is not appreciated, no rash present. Vital Signs: 21:24 BP 132 / 59; Pulse 75; Resp 16 S; Temp 98.8(O); Pulse Ox 98% on R/A; Weight 90.72 kg bb (R); Height 5 ft. 5 in. (165.10 cm) (R); Pain 4/10; 21:24 Body Mass Index 33.28 (90.72 kg, 165.10 cm) bb MDM: 21:30 Differential diagnosis: Corneal abrasion of Corneal ulcer of Foreign body in Acute cp iritis of Acute glaucoma in 21:46 Patient medically screened. cp 21:50 Data reviewed: vital signs, nurses notes, and as a result, I will discharge patient. 21:50 Counseling: I had a detailed discussion with the patient and/or guardian regarding: the cp historical points, exam findings, and any diagnostic results supporting the discharge/admit diagnosis, the need for outpatient follow up, an opthalmologist, to return to the emergency department if symptoms worsen or persist or if there are any questions or concerns that arise at home. Response to treatment: the patient's symptoms have mildly improved after treatment, and as a result, I will discharge patient. 08/09 21:34 Order name: Urine --Ancillary (enter results) mw2 08/09 21:35 Order name: Urine Dipstick-Ancillary; Complete Time: 21:48 EDMS 08/09 21:27 Order name: Urine Dipstick-Ancillary (obtain specimen); Complete Time: 21:33 cp 08/09 21:27 Order name: Urine Test (obtain specimen); Complete Time: 21:33 cp Administered Medications: 21:40 Drug: Benadryl (diphenhydrAMINE) 50 mg Route: PO; bb 22:05 Follow up: Response: No adverse reaction bb 21:41 Drug: predniSONE 60 mg Route: PO; bb 22:05 Follow up: Response: No adverse reaction bb Disposition Summary: 08/09/22 21:50 Discharge Ordered Location: Home cp Problem: new cp Symptoms: have improved cp Condition: Stable cp Diagnosis - Other acute conjunctivitis - allergic, left eye cp Followup: cp - With: Deb Winter MD - When: 1 - 2 days - Reason: Recheck today's complaints Discharge Instructions: - Discharge Summary Sheet cp - Allergic Conjunctivitis, Adult cp Forms: - Medication Reconciliation Form cp - Thank You Letter cp - Antibiotic Education cp - Prescription Opioid Use cp Prescriptions: - Pataday Twice Daily Relief 0.1 % Ophthalmic drops - instill 1 drop by OPHTHALMIC route 2 times per day; 1 bottle; Refills: 0, cp Product Selection Permitted - Prednisone 20 mg Oral Tablet - take 2 tablets by ORAL route once daily for 5 days; 10 tablet; Refills: 0, cp Product Selection Permitted Signatures: Dispatcher [employer] Tori Hernandez RN RN Wei Fitzpatrick PA PA cp Corrections: (The following items were deleted from the chart) 08/10 21:40 12 21:40 Eyes: Periorbital structures: appear normal, Pupils: equal, round, and cp reactive to light and accomodation, Extraocular movements: intact throughout, Conjunctiva: mild injection left eye. Lids and lashes: appear normal, on the left, cp
--- NOTE | 2022-08-09 21:51 | ER ---
Nurse's Notes [facility] [place], [place] Name: Forrest More Age: 32 yrs Sex: Female : 1990 Arrival Date: 08/09/2022 Time: 20:29 Bed Waiting Private MD: Diagnosis: Other acute conjunctivitis-allergic, left eye Presentation: 08/09 21:24 Chief complaint: Patient states: she rubbed her left eye really hard and now it is bb swollen and painful. Coronavirus screen: At this time, the client does not indicate any symptoms associated with coronavirus-19. Ebola Screen: No symptoms or risks identified at this time. Initial Sepsis Screen: Does the patient meet any 2 criteria? No. Patient's initial sepsis screen is negative. Does the patient have a suspected source of infection? No. Patient's initial sepsis screen is negative. Risk Assessment: Do you want to hurt yourself or someone else? Patient reports no desire to harm self or others. Onset of symptoms was August 09, 2022. 21:24 Method Of Arrival: Ambulatory bb 21:24 Acuity: TAMMY 4 bb Triage Assessment: 21:26 General: Appears in no apparent distress. Behavior is calm, cooperative. Pain: bb Complains of pain in left eye. EENT: swelling to conjuctiva of left eye and eyelids. Neuro: Level of Consciousness is awake, alert, obeys commands, Oriented to person, place, time, situation. Cardiovascular: Capillary refill < 3 seconds Patient's skin is warm and dry. Respiratory: Respiratory effort is even, unlabored, Respiratory pattern is regular. GI: No signs and/or symptoms were reported involving the gastrointestinal system. Derm: Skin is pink, warm \T\ dry. Musculoskeletal: Circulation, motion, and sensation intact. 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 - Social history:: Smoking status: Patient denies any tobacco usage or history of. Assessment: 22:05 Reassessment: Patient is alert, oriented x 3, equal unlabored respirations, skin bb warm/dry/pink. pt verbalized understanding of and agrees to plan of care discharge instructions given pt ambulated with steady gait to exit accompanied by family. Vital Signs: 21:24 BP 132 / 59; Pulse 75; Resp 16 S; Temp 98.8(O); Pulse Ox 98% on R/A; Weight 90.72 kg bb (R); Height 5 ft. 5 in. (165.10 cm) (R); Pain 4/10; 21:24 Body Mass Index 33.28 (90.72 kg, 165.10 cm) bb ED Course: 20:29 Patient arrived in ED. bp1 21:10 Wei Pruett PA is PHCP. cp 21:10 Wei Galvan MD is Attending Physician. cp 21:26 Triage completed. bb 21:26 Arm band placed on Patient pt seen by Wei TALLEY in triage. bb 21:41 Urine collected: clean catch specimen, clear. bb 21:49 Deb Winter MD is Referral Physician. cp Administered Medications: 21:40 Drug: Benadryl (diphenhydrAMINE) 50 mg Route: PO; bb 22:05 Follow up: Response: No adverse reaction bb 21:41 Drug: predniSONE 60 mg Route: PO; bb 22:05 Follow up: Response: No adverse reaction bb Outcome: 21:50 Discharge ordered by . cp 22:06 Discharged to home ambulatory, with family. bb 22:06 Condition: stable 22:06 Discharge instructions given to patient, Instructed on discharge instructions, follow up and referral plans. medication usage, Demonstrated understanding of instructions, follow-up care, medications, Prescriptions given X 2. 22:06 Patient left the ED. bb Signatures: Tori Lovett, RN RN bb Wei Pruett PA PA cp Ursula Dewitt bp1
[2022-08-09 22:23] LABS: Urine Specific Gravity/Preg 1.025 (1.005-1.030)
[2022-08-10 06:41] VITALS: BP 132/59; TEMP 98.8; O2SAT 98
== END 2022-08-09 22:06 | disposition home or self-care (01) ==
LOC: ER 20:24
DX: H10.12 Acute atopic conjunctivitis, left eye (principal); Z88.1 Allergy status to other antibiotic agents
CPT/HCPCS: 81003; 81025; 99283; J7512

== ENCOUNTER 2022-10-03 17:01 | Emergency (ER) | payer OTHER ==
--- OUTSIDE RECORDS SUMMARY | 2022-10-03 17:06 | XMS REPORT | Continuity of Care Document ---
:1990 Author Organization [facility] t Address [address] [place] [address] Care Team Providers Name Role Phone Unavailable Unavailable Unavailable Payers Payer Name Policy Type Policy Number Effective Date Expiration Date S ource Problems This patient has no known problems. Allergies, Adverse Reactions, Alerts Allergy Allergy Status Severity Reaction(s) Onset Inactive Treating Comm ents Source Name Type Date Date Clinician erythrom DA Active SV [facility] [place] [facility] 00:00: d 00 [facility] adhesive DA Active [place] 2018-0 [facility] tape 8 [place] 00:00: d 00 [facility] DA Active SV 0 [facility] 4- [employer] 00:00: [facility] 00 are [facility] erythrom DA Active SV [facility] 430 [place] [facility] 00:00: d 00 [facility] adhesive DA Active [place] 0 [facility] tape 4-30 [place] 00:[facility]: d 00 [facility] Medications This patient has no known medications. Procedures This patient has no known procedures. Results Test Description Test Time Test Comments Results Result [facility] e Comments SURGICAL SPECIMENS 2019-05-17 13:27:00 --------RUN DATE: 05/17/19 Becki LUCERO *LIVE* PAGE 1 RUN TIME: 1327 Specimen Inquiry RUN USER: INTERFACE --------PATIENT: KVNG CHIANG LOC: PShaneka5 POD B U #: [id number] AGE/SX: 29/F ROOM: [facility] RE05/15/19REG DR: Gilma Cardoza : [birth year] BED: 1 DIS: 05/16/19 STATUS: DIS IN TLOC: -------- SPEC #: [id number] RECD: 05/15/19 STATUS: ЕКАТЕРИНА SHANE #: [id number] MARTHA: 05/15/[address]: Gilma Cardoza MD [...] Specimen Inquiry RUN USER: INTERFACE --------SPEC #: [id number] PATIENT: KVNG CHIANG #[id number] (Continued) GROSS DESCRIPTION A-LIVER BIOPSY: Received in [...] pattern. No masses or lesions are seen. Community Outreach Director sections are submitted in cassettes B1-B2. [facility]/eb MICROSCOPIC DESCRIPTION Microscopic performed. Signed SIGNATURE ON FILE DaphneymyraAddie L 05/17/19 1327 -------- END OF REPORT BASIC [...] code = CA) 9.3 mg/dL 8.8-10.2 N [id number] 06:46:00 Test Item Value Reference Range Interpretation Comments PHOSPHOROUS (test code = PHOS) 3.0 mg/dL 2.7-4.5 N [id number] 06:44:00 Test Item Value Reference Range Interpretation Comments MAGNESIUM (test code = MAG) 2.3 mg/dL 1.4-2.6 N CBC W/AUTO [id number] 06:32:00 Test Item Value Reference Range Interpretation [...] 0.02 x10 3/uL 0.0-0.20 N HCG SERUM [id number] 08:48:00 Test Item Value Reference Range Interpretation Comments HCG SERUM QUAL (test code = HCGQL) NEGATIVE NEGATIVE DATE OF LAST MENSTRUAL PERIOD: 03/29/19BASIC METABOLIC [id number] 15:54:00 Test Item Value Reference Range Interpretation [...] mg/dL 8.8-10.2 N = CA) CBC W/AUTO [id number] 15:44:00 Test Item Value Reference Range Interpretation [...] 0.05 x10 3/uL 0.0-0.20 N CBC W/AUTO [id number] 01:15:00 Test Item Value Reference Range Interpretation [...] CRITERIA MDIFF) UA RFLX MICR CULT IF [id number] 01:12:00 Test Item Value Reference Range Interpretation [...] TOTAL (test code = ALKP) COMPREHENSIVE METABOLIC [id number] 17:06:00 Test Item Value Reference Range Interpretation [...] % calc 12-57 N FESAT) VITAMIN B12 [id number] 17:06:00 Test Item Value Reference Range Interpretation Comments VITAMIN B12 (test code = VITB12) 851 PG/ML 183-986 N FOLIC ACID (test code = FOL) 24.80 NG/ML 3.10-17.50 H FOLATE RBC [id number] 17:06:00 Test Item Value Reference Range Interpretation Comments FOLIC ACID RBC (test 1000 ng/mL >498 Perform ed At: HD code = FOLRBC) [facility] [address] [place], [place] [id number] Kyle L MD Ph:[phone] FOLATE RBC INTERP 397.9 ng/mL Not Estab. (test code = FOLINT) FOLATE HEMATOCRIT 39.8 % 34.0-46.6 (test code = FOLHCT) T4 [id number] 17:06:00 Test Item Value Reference Range Interpretation Comments T4 FREE (test code = T4F) 0.91 NG/DL 0.89-1.76 N THYROID STIMULATING [id number] 17:06:00 Test Item Value Reference Range Interpretation Comments THYROID STIMULATING HORMONE 1.920 mcIU/ML 0.340-4.820 N (test code = TSH) [id number] 17:06:00 Test Item Value Reference Range Interpretation Comments CORTISOL (test code = 2.9 ug/dL () Corti sheyla AM 6.2 - CORTR) 19.4 Cortisol P M 2.3 - 11.9 [id number] 17:06:00 Test Item Value Reference Range Interpretation [...] Food and Drug Administration. Performed At: [facility] [place], [place] [id number] ra Kamran PATTERSON Ph:[phone] VITAMIN D [id number] 17:06:00 Test Item Value Reference Range Interpretation Comments VITAMIN D 15.2 ng/mL 30.0-100.0 A Vitamin D defic iency has 25-HYDROXY (test been define d by the code = VITD25) [facility] edicine and an Endocrine [facility] practice guidel ine as alevel of serum 25-OH vitamin D less than 20 ng/mL (1,2).The Endocrine Society went on to further define vitamin Dinsufficiency as a level between 21 and 29 ng/mL (2).1. IOM (Ins titute of Medicine). 2010 . Dietary reference intak es for calcium and D. Day DC: [employer] .2. Aron MF, Floyd CASTANON, Caleb soto MORGAN, et al. Evaluation, treatment, and prevention of vitamin D de ficiency: an Endocrine [facility] clinical practi ce guideline. JCEM . 2010; 96(7):1911-30.P erformed At: [facility] [address] [place], [place] [id number] Lokesh Mckay MD Ph:[phone] COMPREHENSIVE METABOLIC [id number] 15:13:00 Test Item Value Reference Range Interpretation [...] % calc 12-57 N FESAT) VITAMIN B12 [id number] 15:13:00 Test Item Value Reference Range Interpretation Comments VITAMIN B12 (test code = VITB12) 851 PG/ML 183-986 N FOLIC ACID (test code = FOL) 24.80 NG/ML 3.10-17.50 H FOLATE RBC [id number] 15:13:00 Test Item Value Reference Range Interpretation Comments FOLIC ACID RBC (test 1000 ng/mL >498 Perform ed At: HD code = FOLRBC) [facility] [address] [place], [place] [id number] Lokesh Mckay MD Ph:[phone] FOLATE RBC INTERP 397.9 ng/mL Not Estab. (test code = FOLINT) FOLATE HEMATOCRIT 39.8 % 34.0-46.6 (test code = FOLHCT) T4 [id number] 15:13:00 Test Item Value Reference Range Interpretation Comments T4 FREE (test code = T4F) 0.91 NG/DL 0.89-1.76 N THYROID STIMULATING [id number] 15:13:00 Test Item Value Reference Range Interpretation Comments THYROID STIMULATING HORMONE 1.920 mcIU/ML 0.340-4.820 N (test code = TSH) [id number] 15:13:00 Test Item Value Reference Range Interpretation Comments CORTISOL (test code = 2.9 ug/dL () Corti sheyla AM 6.2 - CORTR) 19.4 Cortisol P M 2.3 - 11.9 [id number] 15:13:00 Test Item Value Reference Range Interpretation Comments FERRITIN (test code = TESFAYE) 93.3 NG/ML 3.0-105.0 N VITAMIN B1 (THIAMINE)2018-11-30 15:13:00 Test Item Value Reference Range Interpretation Comments VITAMIN B1 (THIAMINE) (test code = VITB1) VITAMIN D [id number] 15:13:00 Test Item Value Reference Range Interpretation Comments VITAMIN D 15.2 ng/mL 30.0-100.0 A Vitamin D defic iency has 25-HYDROXY (test been define d by the code = VITD25) [facility] edicine and an Endocrine So ciety practice guidel ine as alevel of serum 25-OH vitamin D less than 20 ng/mL (1,2).The Endocrine Society went on to further define vitamin Dinsufficiency as a level between 21 and 29 ng/mL (2).1. IOM (Ins titute of Medicine). 2010 . Dietary reference intak es for calcium and D. Day DC: [employer] .2. Aron MF, Floyd CASTANON, Caleb soto MORGAN, et al. Evaluation, treatment, and prevention of vitamin D de ficiency: an Endocrine So [facility] clinical practi ce guideline. JCEM . 2010; 96(1):1911-30.P erformed At: [facility] [address] [place], [place] [id number] Lokesh Mckay MD Ph:[phone] COMPREHENSIVE METABOLIC [id number] 11:40:00 Test Item Value Reference Range Interpretation [...] % calc 12-57 N FESAT) VITAMIN B12 [id number] 11:40:00 Test Item Value Reference Range Interpretation Comments VITAMIN B12 (test code = VITB12) 851 PG/ML 183-986 N FOLIC ACID (test code = FOL) 24.80 NG/ML 3.10-17.50 H FOLATE RBC [id number] 11:40:00 Test Item Value Reference Range Interpretation Comments FOLIC ACID RBC (test code = FOLRBC) FOLATE HEMATOCRIT (test code = FOLHCT) T4 [id number] 11:40:00 Test Item Value Reference Range Interpretation Comments T4 FREE (test code = T4F) 0.91 NG/DL 0.89-1.76 N THYROID STIMULATING [id number] 11:40:00 Test Item Value Reference Range Interpretation Comments THYROID STIMULATING HORMONE 1.920 mcIU/ML 0.340-4.820 N (test code = TSH) [id number] 11:40:00 Test Item Value Reference Range Interpretation Comments CORTISOL (test code = 2.9 ug/dL () Corti sheyla AM 6.2 - CORTR) 19.4 Cortisol P M 2.3 - 11.9 [id number] 11:40:00 Test Item Value Reference Range Interpretation Comments FERRITIN (test code = TESFAYE) 93.3 NG/ML 3.0-105.0 N VITAMIN B1 (THIAMINE)2018-11-30 11:40:00 Test Item Value Reference Range Interpretation Comments VITAMIN B1 (THIAMINE) (test code = VITB1) VITAMIN D [id number] 11:40:00 Test Item Value Reference Range Interpretation Comments VITAMIN D 15.2 ng/mL 30.0-100.0 A Vitamin D defic iency has 25-HYDROXY (test been define d by the code = VITD25) [facility] edicine and an Endocrine [facility] practice guidel ine as alevel of serum 25-OH vitamin D less than 20 ng/mL (1,2).The Endocrine Society went on to further define vitamin Dinsufficiency as a level between 21 and 29 ng/mL (2).1. IOM (Ins titute of Medicine). 2010 . Dietary reference intak es for calcium and D. Day DC: [employer] .2. Aron MF, Floyd [place], Caleb i MORGAN, et al. Evaluation, treatment, and prevention of vitamin D de ficiency: an Endocrine [facility] clinical practi ce guideline. JCEM . 2010; 96(7):1911-30.P erformed At: [facility] [address] [place], [place] [id number] Lokesh Mckay MD Ph:[phone] COMPREHENSIVE METABOLIC [id number] 06:17:00 Test Item Value Reference Range Interpretation [...] % calc 12-57 N FESAT) VITAMIN B12 [id number] 06:17:00 Test Item Value Reference Range Interpretation Comments VITAMIN B12 (test code = VITB12) 851 PG/ML 183-986 N FOLIC ACID (test code = FOL) 24.80 NG/ML 3.10-17.50 H FOLATE RBC [id number] 06:17:00 Test Item Value Reference Range Interpretation Comments FOLIC ACID RBC (test code = FOLRBC) FOLATE RBC INTERP (test code = FOLINT) FOLATE HEMATOCRIT (test code = FOLHCT) T4 [id number] 06:17:00 Test Item Value Reference Range Interpretation Comments T4 FREE (test code = T4F) 0.91 NG/DL 0.89-1.76 N THYROID STIMULATING [id number] 06:17:00 Test Item Value Reference Range Interpretation Comments THYROID STIMULATING HORMONE 1.920 mcIU/ML 0.340-4.820 N (test code = TSH) [id number] 06:17:00 Test Item Value Reference Range Interpretation Comments CORTISOL (test code = 2.9 ug/dL () Corti sheyla AM 6.2 - CORTR) 19.4 Cortisol P M 2.3 - 11.9 [id number] 06:17:00 Test Item Value Reference Range Interpretation Comments FERRITIN (test code = TESFAYE) 93.3 NG/ML 3.0-105.0 N VITAMIN B1 (THIAMINE)2018-11-30 06:17:00 Test Item Value Reference Range Interpretation Comments VITAMIN B1 (THIAMINE) (test code = VITB1) VITAMIN D [id number] 06:17:00 Test Item Value Reference Range Interpretation Comments VITAMIN D 25-HYDROXY (test code = VITD25) COMPREHENSIVE METABOLIC [id number] 06:17:00 Test Item Value Reference Range Interpretation [...] % calc 12-57 N FESAT) VITAMIN B12 [id number] 06:17:00 Test Item Value Reference Range Interpretation Comments VITAMIN B12 (test code = VITB12) 851 PG/ML 183-986 N FOLIC ACID (test code = FOL) 24.80 NG/ML 3.10-17.50 H FOLATE RBC [id number] 06:17:00 Test Item Value Reference Range Interpretation Comments FOLIC ACID RBC (test code = FOLRBC) FOLATE RBC INTERP (test code = FOLINT) FOLATE HEMATOCRIT (test code = FOLHCT) T4 [id number] 06:17:00 Test Item Value Reference Range Interpretation Comments T4 FREE (test code = T4F) 0.91 NG/DL 0.89-1.76 N THYROID STIMULATING [id number] 06:17:00 Test Item Value Reference Range Interpretation Comments THYROID STIMULATING HORMONE 1.920 mcIU/ML 0.340-4.820 N (test code = TSH) [id number] 06:17:00 Test Item Value Reference Range Interpretation Comments CORTISOL (test code = 2.9 ug/dL () Corti sheyla AM 6.2 - CORTR) 19.4 Cortisol P M 2.3 - 11.9 [id number] 06:17:00 Test Item Value Reference Range Interpretation Comments FERRITIN (test code = TESFAYE) 93.3 NG/ML 3.0-105.0 N VITAMIN B1 (THIAMINE)2018-11-30 06:17:00 Test Item Value Reference Range Interpretation Comments VITAMIN B1 (THIAMINE) (test code = VITB1) VITAMIN D [id number] 06:17:00 Test Item Value Reference Range Interpretation Comments VITAMIN D 15.2 ng/mL 30.0-100.0 A Vitamin D defic iency has 25-HYDROXY (test been define d by the code = VITD25) [place] [facility] edicine and an Endocrine [facility] practice guidel ine as alevel of serum 25-OH vitamin D less than 20 ng/mL (1,2).The Endocrine Society went on to further define vitamin Dinsufficiency as a level between 21 and 29 ng/mL (2).1. IOM (Ins titute of Medicine). 2010 . Dietary reference intak es for calcium and D. Day DC: [employer] .2. Aron MF, Floyd [place], Caleb soto MORGAN, et al. Evaluation, treatment, and prevention of vitamin D de ficiency: an Endocrine So [facility] clinical practi ce guideline. JCEM . 2010; 96(7):1911-30.P erformed At: [facility] [address] [place], [place] [id number] Kyle L MD Ph:[phone] COMPREHENSIVE METABOLIC [id number] 13:33:00 Test Item Value Reference Range Interpretation [...] % calc 12-57 N FESAT) VITAMIN B12 [id number] 13:33:00 Test Item Value Reference Range Interpretation Comments VITAMIN B12 (test code = VITB12) 851 PG/ML 183-986 N FOLIC ACID (test code = FOL) 24.80 NG/ML 3.10-17.50 H FOLATE RBC [id number] 13:33:00 Test Item Value Reference Range Interpretation Comments FOLIC ACID RBC (test code = FOLRBC) FOLATE RBC INTERP (test code = FOLINT) FOLATE HEMATOCRIT (test code = FOLHCT) T4 [id number] 13:33:00 Test Item Value Reference Range Interpretation Comments T4 FREE (test code = T4F) 0.91 NG/DL 0.89-1.76 N THYROID STIMULATING [id number] 13:33:00 Test Item Value Reference Range Interpretation Comments THYROID STIMULATING HORMONE 1.920 mcIU/ML 0.340-4.820 N (test code = TSH) [id number] 13:33:00 Test Item Value Reference Range Interpretation Comments CORTISOL (test code = CORTR) [id number] 13:33:00 Test Item Value Reference Range Interpretation Comments FERRITIN (test code = TESFAYE) 93.3 NG/ML 3.0-105.0 N VITAMIN B1 (THIAMINE)2018-11-29 13:33:00 Test Item Value Reference Range Interpretation Comments VITAMIN B1 (THIAMINE) (test code = VITB1) VITAMIN D [id number] 13:33:00 Test Item Value Reference Range Interpretation Comments VITAMIN D 25-HYDROXY (test code = VITD25) COMPREHENSIVE METABOLIC [id number] 12:52:00 Test Item Value Reference Range Interpretation [...] = FESAT) % calc 12-57 VITAMIN B12 [id number] 12:52:00 Test Item Value Reference Range Interpretation Comments VITAMIN B12 (test code = VITB12) PG/ML 183-986 FOLIC ACID (test code = FOL) NG/ML 3.10-17.50 FOLATE RBC [id number] 12:52:00 Test Item Value Reference Range Interpretation Comments FOLIC ACID RBC (test code = FOLRBC) FOLATE RBC INTERP (test code = FOLINT) FOLATE HEMATOCRIT (test code = FOLHCT) T4 [id number] 12:52:00 Test Item Value Reference Range Interpretation Comments T4 FREE (test code = T4F) NG/DL 0.89-1.76 THYROID STIMULATING [id number] 12:52:00 Test Item Value Reference Range Interpretation Comments THYROID STIMULATING HORMONE (test mcIU/ML 0.340-4.820 code = TSH) [id number] 12:52:00 Test Item Value Reference Range Interpretation Comments CORTISOL (test code = CORTR) TESTOSTERONE FREE AND [id number] 12:52:00 Test Item Value Reference Range Interpretation Comments TESTOSTERONE (test code = TEST) TESTOSTERONE (FREE) (test code = TESTF) [id number] 12:52:00 Test Item Value Reference Range Interpretation Comments FERRITIN (test code = TESFAYE) NG/ML 3.0-105.0 VITAMIN B1 (THIAMINE)2018-11-29 12:52:00 Test Item Value Reference Range Interpretation Comments VITAMIN B1 (THIAMINE) (test code = VITB1) VITAMIN D [id number] 12:52:00 Test Item Value Reference Range Interpretation Comments VITAMIN D 25-HYDROXY (test code = VITD25) GLYCOSYLATED HEMOGLOBIN (HA1C)2018-11-29 12:52:00 Test Item Value Reference Range Interpretation Comments GLYCOSYLATED HEMOGLOBIN (HA1C) 6.3 % A1C 4.2-6.3 N (test code = GLYHGB) CBC W/AUTO [id number] 12:35:00 Test Item Value Reference Range Interpretation [...]
--- NOTE | 2022-10-03 18:55 | RAD REPORT ---
EXAM DESCRIPTION: US - TRANSVAG OB - 10/03/2022 6:42 pm CLINICAL HISTORY: VAGINAL BLEEDING COMPARISON: No comparisons FINDINGS: Single IUP with positive heart tones. The crown-rump length measures 1.1 cm and is c onsistent with 7 week 2 day. The yolk sac measures 2 millimeters. heart rate is measured at 158 bpm. Uterus measures 11.6 cm. Left ovary measures 4.2 x 4.2 x 4.3 cm with volume of 40 cc. A simple appear ing left adnexal cyst noted measuring 4.2 x 3.9 x 3.7 cm. Vascular flow is present within the left ov paola. The right ovary was not visualized. IMPRESSION: Single IUP with positive heart tones measuring 7 week 2 day with VENKATESH of 05/20/2023 .
[2022-10-03 19:34] LABS: Urine Blood 2+ (Negative); Urine Glucose Trace (Negative); Urine Protein Negative (Negative); Urine Specific Gravity 1.025 (1.005-1.030)
[2022-10-03 19:50] LABS: Urine Specific Gravity/Preg 1.025 (1.005-1.030)
[2022-10-03 19:57] LABS: Absolute Lymphocytes (CBC) 2.8 K/uL (0.7-4.9); Hematocrit 33.4 % (36.0-45.0); Lymphocytes % 28.6 % (15.3-44.8); MPV 8.9 fL (7.6-11.3); RBC Red Blood Cell Count 4.13 M/uL (3.86-4.86)
--- NOTE | 2022-10-03 20:03 | EDPHYS ---
Physician Documentation [facility] Name: Forrest More Age: 32 yrs Sex: Female : 1990 Arrival Date: 10/03/2022 Time: 17:04 Bed 9 Private MD: ED Physician Kvng Coello HPI: 10/03 17:45 This 32 yrs old Female presents to ER via Ambulatory with complaints of jmm Vaginal Bleeding, + Preg <12wks, Pelvic Pain. 17:45 The patient presents to the emergency department with vaginal bleeding, that is light. jmm The estimated gestational age is 7 weeks. course: care: private OB physician. Previous pregnancies: in previous pregnancies patient has had incompetent cervix. Associated signs and symptoms: Pertinent positives: vaginal bleeding, Pertinent negatives: abdominal pain, vomiting. It is unknown whether or not the patient has had similar symptoms in the past. PATIENT DAY COORDINATOR: 17:42 LMP 08/13/2022 5 17:45 2, Premature 1, Living 1 [facility] Historical: - Allergies: 17:42 Azithromycin; jh5 - Immunization history:: Adult Immunizations up to date. - Social history:: Smoking status: Patient denies any tobacco usage or history of. ROS: 17:45 Constitutional: Negative for fever, chills, and weight loss, Cardiovascular: Negative jmm for chest pain, palpitations, and edema, Respiratory: Negative for shortness of breath, cough, wheezing, and pleuritic chest pain. 17:45 : Positive for vaginal bleeding. 17:45 All other systems are negative. Exam: 17:45 Constitutional: This is a well developed, well nourished patient who is awake, alert, jmm and in no acute distress. Head/Face: atraumatic. Eyes: EOMI, no conjunctival erythema appreciated ENT: Moist Mucus Membranes Neck: Trachea midline, Supple Chest/axilla: Normal chest wall appearance and motion. Cardiovascular: Regular rate and rhythm. No edema appreciated Respiratory: Normal respirations, no respiratory distress appreciated Abdomen/GI: Non distended Back: Normal ROM Skin: General appearance color normal MS/ Extremity: Moves all extremities, no obvious deformities appreciated, no edema noted to the lower extremities Neuro: Awake and alert Psych: Behavior is normal, Mood is normal, Patient is cooperative and pleasant Vital Signs: 17:40 BP 149 / 89; Pulse 75; Resp 16; Temp 98.6; Pulse Ox 100% ; Weight 90.72 kg; Height 5 [facility] ft. 4 in. (162.56 cm); Pain 4/10; 17:40 Body Mass Index 34.33 (90.72 kg, 162.56 cm) [facility] MDM: 17:45 Patient medically screened. [facility] 20:02 Data reviewed: vital signs, nurses notes. [facility] 10/03 17:45 Order name: Abo/rh Typing; Complete Time: 20:13 [facility] 10/03 17:45 Order name: Basic Metabolic Panel [facility] 10/03 17:45 Order name: CBC with Diff; Complete Time: 20:07 [facility] 10/03 17:45 Order name: Quantitative Hcg [facility] 10/03 19:34 Order name: Urine --Ancillary (enter results); Complete Time: 19:52 2 10/03 19:35 Order name: Urine Dipstick-Ancillary; Complete Time: 19:41 [facility] 10/03 17:45 Order name: IV Saline Lock; Complete Time: 19:51 [facility] 10/03 17:45 Order name: Labs collected and sent; Complete Time: 19:51 [facility] 10/03 17:45 Order name: NPO; Complete Time: 20:15 [facility] 10/03 17:45 Order name: Urine Dipstick-Ancillary (obtain specimen); Complete Time: 19:34 [facility] 10/03 18:44 Order name: TRANSVAG OB; Complete Time: 18:59 EDMS Administered Medications: No medications were administered Disposition: 10/04 07:08 Co-signature as Attending Physician, Kvng Coello MD. rn Disposition Summary: 10/03/22 20:03 Discharge Ordered Location: Home [facility] Condition: Stable [facility] Diagnosis - Threatened [facility] Followup: [facility] - With: Private Physician - When: 2 - 3 days - Reason: Recheck today's complaints, Continuance of care, Repeat Beta-HCG (48 Hours), Re-evaluation by your physician Discharge Instructions: - Discharge Summary Sheet [facility] - Threatened Miscarriage [facility] Forms: - Medication Reconciliation Form [facility] - Thank You Letter [facility] - Antibiotic Education [facility] - Prescription Opioid Use [facility] Signatures: Dispatcher [employer] EDMS Kenny Wright PA PA jmm Nieto, Roman, MD MD rn Leah Walls RN RN jh5 Corrections: (The following items were deleted from the chart) 10/03 18:44 17:46 1st Trimest Single 1st Fetus+US.RAD.BRZ ordered. EDMS EDMS
--- NOTE | 2022-10-03 20:03 | ER ---
Nurse's Notes [facility] Name: Forrest More Age: 32 yrs Sex: Female : 1990 Arrival Date: 10/03/2022 Time: 17:04 Bed 9 Private MD: Diagnosis: Threatened Presentation: 10/03 17:40 Chief complaint: Patient states: having cramping and cervical pain started yesterday; 5 woke up with spotting today, havent saturated any pads but continued to spot through out work; pt of [facility] with hx high risk. Coronavirus screen: Vaccine status: Patient reports receiving the 2nd dose of the covid vaccine. Client denies travel out of the [place] in the last 14 days. Ebola Screen: Patient negative for fever greater than or equal to 101.5 degrees Fahrenheit, and additional compatible Ebola Virus Disease symptoms Patient denies exposure to infectious person. Patient denies travel to an Ebola-affected area in the 21 days before illness onset. Initial Sepsis Screen: Does the patient meet any 2 criteria? No. Patient's initial sepsis screen is negative. Does the patient have a suspected source of infection? No. Patient's initial sepsis screen is negative. Risk Assessment: Do you want to hurt yourself or someone else? Patient reports no desire to harm self or others. 17:40 Method Of Arrival: Ambulatory [facility] 17:40 Acuity: TAMMY 3 [facility] Triage Assessment: 17:42 General: Appears uncomfortable, Behavior is calm, cooperative, appropriate for age. [facility] Pain: Complains of pain in abdomen. INFORMATION COORDINATOR: 17:42 LMP 08/13/2022 [facility] 17:45 2, Premature 1, Living 1 [facility] Historical: - Allergies: 17:42 Azithromycin; [facility] - Immunization history:: Adult Immunizations up to date. - Social history:: Smoking status: Patient denies any tobacco usage or history of. Screenin:[address] [facility] ED Fall Risk Assessment (Adult) History of falling in the last 3 months, jb4 including since admission No falls in past 3 months (0 pts) Confusion or Disorientation No (0 pts) Score/Fall Risk Level 0 - 2 = Low Risk Oriented to surroundings. Abuse screen: Denies threats or abuse. Nutritional screening: No deficits noted. Tuberculosis screening: No symptoms or risk factors identified. Assessment: 20:15 General: Appears in no apparent distress. comfortable, Behavior is calm, cooperative. jb4 Pain: Denies pain. Neuro: Level of Consciousness is awake, alert, obeys commands, Oriented to person, place, time, situation. Cardiovascular: Patient's skin is warm and dry. Respiratory: Airway is patent Respiratory effort is even, unlabored, Respiratory pattern is regular, symmetrical. GI: No signs and/or symptoms were reported involving the gastrointestinal system. : Reports vaginal bleeding that is spotty. EENT: No signs and/or symptoms were reported regarding the EENT system. Derm: Skin is intact, Skin is pink, warm \T\ dry. Musculoskeletal: Circulation, motion, and sensation intact. Range of motion: intact in all extremities. Vital Signs: 17:40 BP 149 / 89; Pulse 75; Resp 16; Temp 98.6; Pulse Ox 100% ; Weight 90.72 kg; Height 5 5 ft. 4 in. (162.56 cm); Pain 4/10; 17:40 Body Mass Index 34.33 (90.72 kg, 162.56 cm) 5 ED Course: 17:04 Patient arrived in ED. as 17:21 Kenny Wright PA is PHCP. [facility] 17:21 Kvng Coello MD is Attending Physician. [facility] 17:42 Triage completed. 5 17:42 Arm band placed on right wrist. jh5 18:44 TRANSVAG OB In Process Unspecified. EDMS 19:51 Inserted saline lock: 20 gauge in left antecubital area, using aseptic technique. Blood rv1 collected. 19:51 Abo/rh Typing Sent. rv1 19:51 Basic Metabolic Panel Sent. rv1 19:51 CBC with Diff Sent. rv1 19:51 Quantitative Hcg Sent. rv1 20:16 Patient has correct armband on for positive identification. Bed in low position. Call jb4 light in reach. Side rails up X 1. 20:16 No provider procedures requiring assistance completed. IV discontinued, intact, jb4 bleeding controlled, No redness/swelling at site. Pressure dressing applied. Administered Medications: No medications were administered Medication: 20:16 VIS not applicable for this client. jb4 Outcome: 20:03 Discharge ordered by . [facility] 20:16 Discharged to home ambulatory. jb4 20:16 Condition: stable 20:16 Discharge instructions given to patient, Instructed on discharge instructions, follow up and referral plans. Demonstrated understanding of instructions, follow-up care. 20:17 Patient left the ED. jb4 Signatures: Dispatcher [employer] EDKenny Beckford PA PA jmm Martinez, Amelia as Bryson, James RN RN jb4 Leah Walls RN RN jh5 Yajaira Winston 1 Corrections: (The following items were deleted from the chart) 20:16 20:15 : Reports vaginal bleeding that is jb4 jb4
[2022-10-03 20:30] LABS: Potassium 3.6 mmol/L (3.5-5.1)
[2022-10-03 21:28] VITALS: BP 149/89; TEMP 98.6; O2SAT 100
== END 2022-10-03 20:17 | disposition home or self-care (01) ==
LOC: ER 17:01
DX: O20.0 Threatened abortion (principal)
CPT/HCPCS: 36415; 76813; 80048; 81003; 81025; 84702; 85025; 86900; 86901

== ENCOUNTER 2024-08-26 18:19 | Emergency (ER) | payer OTHER ==
--- OUTSIDE RECORDS SUMMARY | 2024-08-26 18:23 | XMS REPORT | Continuity of Care Document ---
Author Name Unknown Address [address] [facility] [place] [address] [facility] thconnect Address [address] 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 Name Role Phone Anthony Aguero Attending Clinician Unavailable Marlo Rojas Attending Clinician Unavailable Anthony Aguero Attending Clinician Unavailable GC_GCBZW_Valdeza_S Attending Clinician Unavaila Adiel Rivera Attending Clinician Unavailable Reji Palmer Attending Clinician Unavaila Julia Rocha Attending Clinician Unavail able Wilmer Hayden Attending Clinician Unavailable Marlo Rojas Admitting Clinician Unavailable Anthony Aguero Admitting Clinician Unavailable GC_GCBZW_Valdeza_S Admitting Clinician Unavaila Adiel Rivera Admitting Clinician Unavailable Payers Payer Name Policy Type Policy Number Effective Date Expirati on Date Source Problems Condition Name Condition Details Condition Category Status Onset Date Resolution Date Last Treatment Date Treating Clinician Comments Source Hyperlipid emia Hyperlipid emia Problem Active 508 00:00: 00 [facility] Allergies, Adverse Reactions, Alerts Allergy Name Allergy Type Status Severity Reaction(s) Onset Date Inactive Date Treating Clinician Comments Source adhesive tape DA Active MT ITCH 8 00:00: 00 [facility] azithrom ycin DA Active SV SWELLING 05-01 00:00: 00 [facility] erythrom ycin base DA Active SV HIVES/SWELLI NG 6 00:00: 00 [facility] adhesive tape DA Active MT ITCH 02-22 00:00: 00 [facility] azithrom ycin DA Active U UNKNOWN 02-22 00:00: 00 [facility] erythrom ycin base DA Active SV 2018-0 8-08 00:00: 00 [facility] adhesive tape DA Active MT 2018-0 8-08 00:00: 00 [facility] erythrom ycin base DA Active SV HIVES/SWELLI NG 0 8-08 00:00: 00 [facility] tape DA Active MT ITCH 0 8-08 00:00: 00 [facility] azithrom ycin DA Active SV 2019-0 4-11 00:00: 00 [facility] erythrom ycin base DA Active SV 2017-0 4-30 00:00: 00 [facility] adhesive tape DA Active MT 2018-0 4-30 00:00: 00 [facility] Azithrom ycin Allergy to substanc e Active [facility] Social History Smoking Status Start Date Stop Date Source Never Smoker [facility] Medications Ordered Medication Name Filled Medication Name Start Date Stop Date Current Medication? Ordering Clinician Indication Dosage Frequency Signature (SIG) Comments Components Source Diflucan 150 mg tablet Take 1 tablet every 72 hours by oral route for 3 days. Diflucan 150 mg tablet Take 1 tablet every 72 hours by oral route for 3 days. No 1 Diflucan 150 mg tablet Take 1 tablet every 72 hours by oral route for 3 days. [facility] Ozempic 0.25 mg or 0.5 mg (2 mg/3 mL) subcutaneou s pen injector INJECT 0.5 MG SUBCUTANEOU SLY WEEKLY. Ozempic 0.25 mg or 0.5 mg (2 mg/3 mL) subcutaneou s pen injector INJECT 0.5 MG SUBCUTANEOU SLY WEEKLY. No Ozempic 0.25 mg or 0.5 mg (2 mg/3 mL) subcutaneo us pen injector INJECT 0.5 MG SUBCUTANEO USLY WEEKLY. [facility] Vital Signs Vital Name Observation Time Observation Value Comments S ource BP Diastolic 2024-01-10 00:00:00 77 mm[Hg] [facility] BMI (Body Mass Index) 2024-01-10 00:00:00 34.2 kg/m2 [facility] BP Systolic 2024-01-10 00:00:00 132 mm[Hg] [facility] Body Weight 2024-01-10 00:00:00 199.2 [lb_av] [facility] Height 2024-01-10 00:00:00 64 [in_i] [facility] Procedures Procedure Date / Time Performed Performing Clinician Source [id number] 2023-05-01 00:00:00 [facility] Delivery 2023-05-01 00:00:00 [facility] 2022-11-14 00:00:00 Fredy chacko Cholecystectomy (Gallbladder) 2020-06-04 00:00:00 [facility] Delivery 2017-12-22 00:00:00 [facility] 2017-11-23 00:00:00 Fredy chacko Plan of Care Planned Activity Planned Date Details Comments Source Diagnostic Test Pending 2024-01-10 00:00:00 infectious disease panel [code = infectious disease panel] [facility] Diagnostic Test Pending 2024-01-10 00:00:00 pap, LB + HPV [code = pap, LB + HPV] [facility] Encounters Start Date/Time End Date/Time Encounter Type Admission Type Attending Clinicians Care Facility Care Department Encounter ID Source 2024-05-30 08:09:01 Outpatient Anthony Aguero [facility] [id number] [facility] 2023-11-02 10:14:01 Outpatient Anthony Aguero [facility] [id number] [facility] 2022-11-09 05:08:00 Inpatient Marlo Pablo [facility] LD [id number] 06 [facility] 2024-08-12 11:01:00 2024-08-12 11:01:00 Outpatient Anthony Niño [facility] [id number] [facility] 2024-01-10 00:00:00 2024-01-10 00:00:00 MAYANK Olmos: [address] [place] [address] Dr [address], [place] [address], [place] [address] , Ph. [facility]ly [facility] - [facility]* [id number] [facility] 2023-07-04 00:00:00 2023-07-04 00:00:00 Outpatient GC_GCBZW_Ka diyala_S [facility] [id number] [facility] 2023-07-03 00:00:00 2023-07-03 00:00:00 Outpatient GC_GCBZW_Ka diyala_S [facility] [id number] [facility] 2023-02-22 15:52:00 2023-02-25 14:26:00 Inpatient EM Adiel Isidro [facility] [id number] [facility] 2022-12-01 12:33:00 2022-12-01 13:43:00 Emergency EM Reji Palemr [facility] [id number] [facility] 2022-11-21 09:22:00 2022-11-21 11:20:00 Emergency EM Juila Celaya [facility] [id number] [facility] 2022-11-09 05:08:00 2022-11-09 05:08:00 Outpatient Wilmer Menjivar [facility] DA[facility] [id number] [facility] Results Test Description Test Time Test Comments Results Result Co mments Source COMPREHENSIVE METABOLIC [id number] 23:07:00* Test Item Value Reference Range Interpretation Comme nts SODIUM (test code = NA) 142 mmol/L 136-145 N POTASSIUM (test code = K) 3.9 mmol/L 3.4-5.0 N CHLORIDE (test code = CL) 104 mmol/L 98-107 N CARBON DIOXIDE (test code = CO2) 27 mmol/L 21-32 N ANION GAP (test code = GAP) 11 GAP calc 4-15 N GLUCOSE (test code = GLU) 128 MG/DL 70-110 H BLOOD UREA NITROGEN (test code = BUN) 12 MG/DL 7-18 N GLOMERULAR FILTRATION RATE (test code = GFR) >=60 max estimate estGFR >60 The Glomerular Filtration Rate is a calculated parameterbased on serum Creatinine, patient age and sex. GFR valuesless than 60 mL/min/1.73 square meters are indicative ofChronic Kidney Disease. Values less than 15 mL/min/1.73square meters indicate Kidney failure. The calculation forGFR is based on the CKD-EPI (202) calculation. This formulais race indifferent and is the recommended formula for GFRby the National Kidney Foundation for Adults.The GFR will not calculate if the sex is unknown or if thepatient's age is <18 years. CREATININE (test code = CREAT) 0.6 MG/DL 0.6-1.0 N TOTAL PROTEIN (test code = PROT) 8.4 G/DL 6.4-8.2 H ALBUMIN (test code = ALB) 3.9 G/DL 3.4-5.0 N GLOBULIN (test code = GLOB) 4.5 GM/dL ALBUMIN/GLOBULIN RATIO (test code = A/G) 0.9 RATIO 1.2-2.2 L CALCIUM (test code = CA) 9.0 MG/DL 8.5-10.1 N BILIRUBIN TOTAL (test code = BILT) 0.4 MG/DL 0.0-1.0 N SGOT/AST (test code = AST) 11 Unit/L 15-37 L SGPT/ALT (test code = ALT) 25 Unit/L 30-65 L ALKALINE PHOSPHATASE TOTAL (test code = ALKP) 94 Unit/L 50-136 N LIPID PROFILE (CORONARY RISK)2024-08-14 23:07:00* Test Item Value Reference Range Interpretation Comme nts TRIGLYCERIDES (test code = TRIG) 383 MG/DL 0-150 H CHOLESTEROL (test code = CHOL) 255 MG/DL 133-200 H CHOLESTEROL/HDL RATIO (test code = CHOLHDL) 5.00 RATIO See_Comment RISK ASSOC IATED WITH CHOL/HDL RATIOS: RISK MALE FEMALE1/2 AVERAGE 3.43 3.27AVERAGE 4.97 4.442X AVERAGE 9.55 7.053X AVERAGE 23.39 11.04 NOTE THAT THE REFERENCE VALUE IS RELATED TO RISK LEVELS ASRECOMMENDED BY THE [facility]ATIONAL [facility], [facility]G, AND [facility]LOOD INSTITUTE. [Automated message] The system which generated this result transmitted reference range: 0-. The reference range was not used to interpret this result as normal/abnormal. HDL CHOLESTEROL (test code = HDL) 51 MG/DL See_Comment L [Automated [employer]] The system which generated this result transmitted reference range: 60-. The reference range was not used to interpret this result as normal/abnormal. NON-HDL CHOLESTEROL (test code = NHDL) 204 mg/dL <130 H LIPOPROTEIN LDL (test code = LDL) 162 MG/DL 0-129 H LDL/HDL (test code = LDL/HDL) 3.17 Ratio See_Comment N [Automated [employer]] The system which generated this result transmitted reference range: 1.48-3.22 Avg. The reference range was not used to interpret this result as normal/abnormal. [id number] 11:30:00* Test Item Value Reference Range Interpretation Comme nts GLYCOSYLATED HEMOGLOBIN (HA1 C) (test code = GLYHGB) 5.9 % A1C 4.8-6.0 N ESTIMATED AVERAGE GLUCOSE (t est code = EAG) 123 MG/DLest CBC W/AUTO [id number] 08:23:00* Test Item Value Reference Range Interpretation Comme nts WHITE BLOOD CELL (test code = WBC) TEST NOT PERFORMED K/mm3 6.5-12.3 RED BLOOD CELL (test code = RBC) TEST NOT PERFORMED M/mm3 3.51-4.69 DUPLICATE HEMOGLOBIN (test code = HGB) TEST NOT PERFORMED g/dL 10.1-13.8 HEMATOCRIT (test code = HCT) TEST NOT PERFORMED % 32.1-42.1 MEAN CELL VOLUME (test code = MCV) TEST NOT PERFORMED fL 84.6-96.6 MEAN CELL HGB (test code = MCH) TEST NOT PERFORMED pg 27.3-33.9 MEAN CELL HGB CONCETRATION (test code = MCHC) TEST NOT PERFORMED gm/dL 32.0-34.2 PLATELET COUNT (test code = PLT) TEST NOT PERFORMED K/mm3 134-363 RBC MORPHOLOGY REQUIRED (test code = RBCM) TEST NOT PERFORMED NORMAL PLATELET MORPHOLOGY REQUIRED (test code = PLTMR) TEST NOT PERFORMED NORMAL SPECIMENT CLOTTED SPOKE WITH JEAN PIERRE [facility] W/AUTO [id number] 07:24:00* Test Item Value Reference Range Interpretation Comme nts WHITE BLOOD CELL (test code = WBC) 10.2 K/mm3 6.5-12.3 N RED BLOOD CELL (test code = RBC) 2.99 M/mm3 3.51-4.69 L HEMOGLOBIN (test code = HGB) 8.2 g/dL 10.1-13.8 L HEMATOCRIT (test code = HCT) 26.2 % 32.5-41.8 L MEAN CELL VOLUME (test code = MCV) 87.6 fL 84.6-96.6 N MEAN CELL HGB (test code = MCH) 27.4 pg 27.3-33.9 N MEAN CELL HGB CONCETRATION ( test code = MCHC) 31.3 gm/dL 32.0-34.2 L RED CELL DISTRIBUTION WIDTH (test code = RDW) 17.2 % 12.2-16.3 H PLATELET COUNT (test code = PLT) 180 K/mm3 134-363 N MEAN PLATELET VOLUME (test c ode = MPV) 12.7 fL 9.2-12.7 N NEUTROPHIL % (test code = NT%) 73.4 % 57.9-77.3 N LYMPHOCYTE % (test code = LY%) 21.1 % 14.5-29.7 N MONOCYTE % (test code = MO%) 4.9 % 3.6-10.2 N EOSINOPHIL % (test code = EO%) 0.1 % 0.0-3.0 N BASOPHIL % (test code = BA%) 0.2 % 0.1-0.9 N NEUTROPHIL # (test code = NT#) 7.5 K/mm3 LYMPHOCYTE # (test code = LY#) 2.2 K/mm3 MONOCYTE # (test code = MO#) 0.5 K/mm3 EOSINOPHIL # (test code = EO#) 0.01 K/mm3 BASOPHIL # (test code = BA#) 0.0 K/mm3 RBC MORPHOLOGY REQUIRED (daisy t code = RBCM) NORMAL NORMAL PLATELET MORPHOLOGY REQUIRED (test code = PLTMR) NORMAL NORMAL BASIC METABOLIC [id number] 19:43:00* Test Item Value Reference Range Interpretation Comme nts SODIUM (test code = NA) 137 mEq/L 135-145 N POTASSIUM (test code = K) 4.7 mEq/L 3.5-5.0 N CHLORIDE (test code = CL) 104 mEq/L 100-115 N CARBON DIOXIDE (test code = CO2) 23 mEq/L 22-31 N ANION GAP (test code = GAP) 14.80 10-20 N GLUCOSE (test code = GLU) 289 mg/dL 65-110 H BLOOD UREA NITROGEN (test code = BUN) 8 mg/dL 7-18 N CREATININE (test code = CREAT) 0.6 mg/dL 0.5-1.0 N CALCIUM (test code = CA) 8.3 mg/dL 8.4-10.2 L GLOMERULAR FILTRATION RATE (test code = GFR) 122 ml/min >60 N The Glomerular Filtration Rate is a calculated parameterbased on serum Creatinine, patient age and sex. GFR valuesless than 60 mL/min/1.73 square meters are indicative ofChronic Kidney Disease. Values less than 15 mL/min/1.73square meters indicate Kidney failure. The calculation forGFR is based on the CKD-EPI (202) calculation. This formulais race indifferent and is the recommended formula for GFRby the National Kidney Foundation for Adults.The GFR will not calculate if the sex is unknown or if thepatient's age is <18 years. CBC W/AUTO [id number] 19:39:00* Test Item Value Reference Range Interpretation Comme nts WHITE BLOOD CELL (test code = WBC) 12.9 K/mm3 6.5-12.3 H Results verified by repeat analysis RED BLOOD CELL (test code = RBC) 3.35 M/mm3 3.51-4.69 L HEMOGLOBIN (test code = HGB) 9.4 g/dL 10.1-13.8 L HEMATOCRIT (test code = HCT) 28.7 % 32.5-41.8 L MEAN CELL VOLUME (test code = MCV) 85.7 fL 84.6-96.6 N MEAN CELL HGB (test code = MCH) 28.1 pg 27.3-33.9 N MEAN CELL HGB CONCETRATION (test code = MCHC) 32.8 gm/dL 32.0-34.2 N RED CELL DISTRIBUTION WIDTH (test code = RDW) 16.8 % 12.2-16.3 H PLATELET COUNT (test code = PLT) 172 K/mm3 134-363 N IMMATURE PLATELET FRACTION (test code = IPF) 6.8 % 0.0-10.8 N MEAN PLATELET VOLUME (test code = MPV) 13.2 fL 9.2-12.7 H MANUAL DIFF REQUIRED (test code = MDIFF) YES RBC MORPHOLOGY REQUIRED (test code = RBCM) NORMAL NORMAL PLATELET MORPHOLOGY REQUIRED (test code = PLTMR) NORMAL NORMAL WBC [id number] 19:39:00* Test Item Value Reference Range Interpretation Comme nts SEGMENTED NEUTROPHILS (test code = SEG) 95 % 56.5-79.4 H LYMPHOCYTE (test code = LYMPH) 3 % 20-40 L TOTAL CELLS COUNTED (test co de = TCC) 100 #CELLS MONOCYTE (test code = MON) 2 % 0-8 N PLATELET ESTIMATE (test code = PLTEST) ADEQUATE ADEQ PLATELET MORPHOLOGY (test co de = PLTMORPH) NORMAL NORMAL [id number] 13:44:00* Test Item Value Reference Range Interpretation Comme nts GLUBED (test code = GLUBED) 97 mg/dL 65-110 N CBC W/AUTO [id number] 12:33:00* Test Item Value Reference Range Interpretation Comme nts WHITE BLOOD CELL (test code = WBC) 7.9 K/mm3 6.5-12.3 N RED BLOOD CELL (test code = RBC) 4.01 M/mm3 3.51-4.69 N HEMOGLOBIN (test code = HGB) 11.0 g/dL 10.1-13.8 N HEMATOCRIT (test code = HCT) 33.9 % 32.5-41.8 N MEAN CELL VOLUME (test code = MCV) 84.5 fL 84.6-96.6 L MEAN CELL HGB (test code = MCH) 27.4 pg 27.3-33.9 N MEAN CELL HGB CONCETRATION ( test code = MCHC) 32.4 gm/dL 32.0-34.2 N RED CELL DISTRIBUTION WIDTH (test code = RDW) 17.0 % 12.2-16.3 H PLATELET COUNT (test code = PLT) 235 K/mm3 134-363 N IMMATURE PLATELET FRACTION ( test code = IPF) 8.6 % 0.0-10.8 N MEAN PLATELET VOLUME (test c ode = MPV) 13.7 fL 9.2-12.7 H NEUTROPHIL % (test code = NT%) 66.0 % 57.9-77.3 N LYMPHOCYTE % (test code = LY%) 24.9 % 14.5-29.7 N MONOCYTE % (test code = MO%) 7.9 % 3.6-10.2 N EOSINOPHIL % (test code = EO%) 0.3 % 0.0-3.0 N BASOPHIL % (test code = BA%) 0.4 % 0.1-0.9 N NEUTROPHIL # (test code = NT#) 5.2 K/mm3 LYMPHOCYTE # (test code = LY#) 2.0 K/mm3 MONOCYTE # (test code = MO#) 0.6 K/mm3 EOSINOPHIL # (test code = EO#) 0.02 K/mm3 BASOPHIL # (test code = BA#) 0.0 K/mm3 RBC MORPHOLOGY REQUIRED (daisy t code = RBCM) NORMAL NORMAL PLATELET MORPHOLOGY REQUIRED (test code = PLTMR) NORMAL NORMAL [id number] 11:39:00* Test Item Value Reference Range Interpretation Comme nts GLUBED (test code = GLUBED) 210 mg/dL 65-110 H CAPILLARY BLOOD [id number] 09:06:00* Test Item Value Reference Range Interpretation Comme nts CAPILLARY BLOOD GAS PH (test code = PHC) 7.167 7.35-7.45 LL CAPILLARY BLOOD GAS PCO2 (te st code = PCO2C) 72.8 mmHg CBG HCO3 (test code = HCO3C) 25.8 meq/L CBG BASE EXCESS (test code = BEC) -4.6 CAPILLARY BLOOD GAS TYPE (te st code = TYPEC) CBLA CAPILLARY BLOOD GAS FIO2 (te st code = FIO2C) 21.0 % CAPILLARY BLOOD GAS DEL (daisy t code = DELC) RA AG HEPATITIS B [id number] 14:56:00* Test Item Value Reference Range Interpretation Comme nts AG HEPATITIS B SURFACE (test code = HBSAG) NONREACTIVE NONREACTIVE AB HEPATITIS C [id number] 14:56:00* Test Item Value Reference Range Interpretation Comme nts AB HEPATITIS C (test code = HCVAB) NONREACTIVE NONREACTIVE SIGNAL TO CUTOFF (test code = CUTOFF) 0.05 <0.80 N AB [id number] 14:56:00* Test Item Value Reference Range Interpretation Comme nts AB TREPONEMA (test code = TREPAB) NONREACTIVE NONREACTIVE AB HIV 1 14:56:00* Test Item Value Reference Range Interpretation Comme nts AB HIV 1 2 (test code = ZDT28IY) NONREACTIVE NONREACTIVE Done by [employer] HIV Ag/Ab Combo Screen COMPREHENSIVE METABOLIC [id number] 11:59:00* Test Item Value Reference Range Interpretation Comme nts SODIUM (test code = NA) 135 mEq/L 135-145 N POTASSIUM (test code = K) 3.9 mEq/L 3.5-5.0 N CHLORIDE (test code = CL) 103 mEq/L 100-115 N CARBON DIOXIDE (test code = CO2) 23 mEq/L 22-31 N ANION GAP (test code = GAP) 13.00 10-20 N GLUCOSE (test code = GLU) 143 mg/dL 65-110 H BLOOD UREA NITROGEN (test code = BUN) 8 mg/dL 7-18 N CREATININE (test code = CREAT) 0.4 mg/dL 0.5-1.0 L TOTAL PROTEIN (test code = PROT) 5.9 gm/dL 6.3-8.2 L ALBUMIN (test code = ALB) 2.4 gm/dL 3.4-4.8 L CALCIUM (test code = CA) 8.1 mg/dL 8.4-10.2 L BILIRUBIN TOTAL (test code = BILT) 0.2 mg/dL 0.2-1.0 N SGOT/AST (test code = AST) 15 units/L 15-37 N SGPT/ALT (test code = ALT) 12 units/L 12-78 N ALKALINE PHOSPHATASE TOTAL (test code = ALKP) 155 units/L 46-116 H GLOMERULAR FILTRATION RATE (test code = GFR) 135 ml/min >60 N The Glomerular Filtration Rate is a calculated parameterbased on serum Creatinine, patient age and sex. GFR valuesless than 60 mL/min/1.73 square meters are indicative ofChronic Kidney Disease. Values less than 15 mL/min/1.73square meters indicate Kidney failure. The calculation forGFR is based on the CKD-EPI (2020) calculation. This formulais race indifferent and is the recommended formula for GFRby the National Kidney Foundation for Adults.The GFR will not calculate if the sex is unknown or if thepatient's age is <18 years. AG HEPATITIS B [id number] 17:12:00* Test Item Value Reference Range Interpretation Comme nts AG HEPATITIS B SURFACE (test code = HBSAG) NONREACTIVE NONREACTIVE AB HEPATITIS C [id number] 17:12:00* Test Item Value Reference Range Interpretation Comme nts AB HEPATITIS C (test code = HCVAB) NONREACTIVE NONREACTIVE SIGNAL TO CUTOFF (test code = CUTOFF) 0.14 <0.80 N AB [id number] 17:12:00* Test Item Value Reference Range Interpretation Comme nts AB TREPONEMA (test code = TREPAB) NONREACTIVE NONREACTIVE AB HIV 1 17:12:00* Test Item Value Reference Range Interpretation Comme nts AB HIV 1 2 (test code = LHA31XR) NONREACTIVE NONREACTIVE Done by [employer] HIV Ag/Ab Combo Screen CBC W/AUTO [id number] 15:20:00* Test Item Value Reference Range Interpretation Comme nts WHITE BLOOD CELL (test code = WBC) 8.0 K/mm3 6.5-12.3 N RED BLOOD CELL (test code = RBC) 3.75 M/mm3 3.51-4.69 N HEMOGLOBIN (test code = HGB) 10.1 g/dL 10.1-13.8 N HEMATOCRIT (test code = HCT) 31.1 % 32.5-41.8 L MEAN CELL VOLUME (test code = MCV) 82.9 fL 84.6-96.6 L MEAN CELL HGB (test code = MCH) 26.9 pg 27.3-33.9 L MEAN CELL HGB CONCETRATION ( test code = MCHC) 32.5 gm/dL 32.0-34.2 N RED CELL DISTRIBUTION WIDTH (test code = RDW) 14.6 % 12.2-16.3 N PLATELET COUNT (test code = PLT) 274 K/mm3 134-363 N MEAN PLATELET VOLUME (test c ode = MPV) 12.4 fL 9.2-12.7 N NEUTROPHIL % (test code = NT%) 72.5 % 57.9-77.3 N LYMPHOCYTE % (test code = LY%) 19.1 % 14.5-29.7 N MONOCYTE % (test code = MO%) 7.4 % 3.6-10.2 N EOSINOPHIL % (test code = EO%) 0.4 % 0.0-3.0 N BASOPHIL % (test code = BA%) 0.3 % 0.1-0.9 N NEUTROPHIL # (test code = NT#) 5.8 K/mm3 LYMPHOCYTE # (test code = LY#) 1.5 K/mm3 MONOCYTE # (test code = MO#) 0.6 K/mm3 EOSINOPHIL # (test code = EO#) 0.03 K/mm3 BASOPHIL # (test code = BA#) 0.0 K/mm3 RBC MORPHOLOGY REQUIRED (daisy t code = RBCM) NORMAL NORMAL PLATELET MORPHOLOGY REQUIRED (test code = PLTMR) NORMAL NORMAL URINALYSIS [id number] 14:18:00* Test Item Value Reference Range Interpretation Comme nts UA COLOR (test code = COLU) YELLOW YELLOW UA APPEARANCE (test code = APPU) Slightly-Cloudy CLEAR UA GLUCOSE DIPSTICK (test code = DGLUU) NEGATIVE NEG UA BILIRUBIN DIPSTICK (test code = BILU) NEGATIVE NEG UA KETONE DIPSTICK (test code = KETU) TRACE NEG A UA SPECIFIC GRAVITY (test code = SGU) 1.026 1.001-1.035 N UA BLOOD DIPSTICK (test code = BALDEMAR) 1+ NEG A UA PH DIPSTICK (test code = LEONORA) 6.0 5-9 UA PROTEIN DIPSTICK (test code = PROU) NEGATIVE NEG UA UROBILINIOGEN DIPSTICK (test code = URO) 4.0 mg/dL NEG A UA NITRITE DIPSTICK (test code = CIRA) NEG NEG UA LEUKOCYTE ESTERASE DIPSTICK (test code = LEUU) 3+ NEG A UA WBC (test code = WBCU) TOO NUMEROUS T O CNT #/hpf NONE SEEN A UA RBC (test code = RBCU) 6-10 #/hpf NONE SEEN A UA EPITHELIAL CELLS (test code = EPIU) RARE #/HPF RARE-FEW UA BACTERIA (test code = BACU) RARE /HPF RARE-FEW UA MUCUS (test code = MUCU) RARE NONE SEEN URINE SAMPLE: CLEAN CATCHUA RFLX MICR CULT IF [id number] 13:13:00* Test Item Value Reference Range Interpretation Comme nts UA COLOR (test code = COLU) YELLOW YELLOW UA APPEARANCE (test code = APPU) Slightly-Cloudy CLEAR UA GLUCOSE DIPSTICK (test code = DGLUU) NEGATIVE NEG UA BILIRUBIN DIPSTICK (test code = BILU) NEGATIVE NEG UA KETONE DIPSTICK (test cod e = KETU) 1+ NEG A UA SPECIFIC GRAVITY (test code = SGU) 1.028 1.001-1.035 N UA BLOOD DIPSTICK (test code = BALDEMAR) 1+ NEG A UA PH DIPSTICK (test code = LEONORA) 5.0 5-9 UA PROTEIN DIPSTICK (test code = PROU) NEGATIVE NEG UA UROBILINIOGEN DIPSTICK (test code = URO) NEGATIVE mg/dL NEG UA NITRITE DIPSTICK (test code = CIRA) NEG NEG UA LEUKOCYTE ESTERASE DIPSTICK (test code = LEUU) 1+ NEG A UA WBC (test code = WBCU) 31-40 #/hpf NONE SEEN A UA RBC (test code = RBCU) 21-30 #/hpf NONE SEEN A UA EPITHELIAL CELLS (test code = EPIU) FEW #/HPF RARE-FEW UA BACTERIA (test code = BACU) FEW /HPF RARE-FEW UA RENAL CELLS (test code = MARIBELL) FEW #/hpf NONE SEEN A UA MUCUS (test code = MUCU) 1+ NONE SEEN Indication for culture: Suprapubic PainSpecimen Description: CLEAN CATCH CHLAMYDIA GC DNA BY [id number] 12:59:00* Test Item Value Reference Range Interpretation Comme nts C. TRACHOMATIS DNA BY PCR (test code = CHLAMTDNA) NOT DETECTED Not Detecte N. GONORRHOEAE DNA BY PCR (test code = NGONORDNA) NOT DETECTED Not Detecte TEST PERFORMED U SING THE [employer] GENEXPERT BY PCR.FALSE NEGATIVE RESULTS MAY OCCUR IF THE ORGANISM(S) ISPRESENT AT LEVELS BELOW THE ANALYTICAL LIMIT OD DETECTION.BECAUSE THE DETECTION OF CHLAMYDIA TRACHOMATIS AND NEISSERIA GONORRHOEAE IS DEPENDENT ON THE DNA PRESENT INTHE SAMPLE, RELIABLE RESULTS ARE DEPENDENT ON PROPER SAMPLECOLLECTION, HANDLING, AND STORAGE. RUPTURE OF [id number] 10:40:00* Test Item Value Reference Range Interpretation Comme nts RUPTURE OF MEMBRANES (test c ode = ROM) NON-RUPTURED UA RFLX MICR CULT IF [id number] 09:43:00* Test Item Value Reference Range Interpretation Comme nts UA COLOR (test code = COLU) YELLOW YELLOW UA APPEARANCE (test code = APPU) Slightly-Cloudy CLEAR UA GLUCOSE DIPSTICK (test code = DGLUU) NEGATIVE NEG UA BILIRUBIN DIPSTICK (test code = BILU) NEGATIVE NEG UA KETONE DIPSTICK (test cod e = KETU) NEGATIVE NEG UA SPECIFIC GRAVITY (test code = SGU) 1.003 1.001-1.035 N UA BLOOD DIPSTICK (test code = BADLEMAR) NEG NEG UA PH DIPSTICK (test code = LEONORA) 7.0 5-9 UA PROTEIN DIPSTICK (test code = PROU) NEGATIVE NEG UA UROBILINIOGEN DIPSTICK (test code = URO) NEGATIVE mg/dL NEG UA NITRITE DIPSTICK (test code = CIRA) NEG NEG UA LEUKOCYTE ESTERASE DIPSTICK (test code = LEUU) NEG NEG UA WBC (test code = WBCU) 0-2 #/hpf NONE SEEN UA RBC (test code = RBCU) 0-2 #/hpf NONE SEEN UA EPITHELIAL CELLS (test code = EPIU) RARE #/HPF RARE-FEW UA BACTERIA (test code = BACU) FEW /HPF RARE-FEW UA MUCUS (test code = MUCU) RARE NONE SEEN Indication for culture: Suprapubic PainSpecimen Description: CLEAN CATCHCBC W/AUTO [id number] 13:40:00* Test Item Value Reference Range Interpretation Comme nts WHITE BLOOD CELL (test code = WBC) 10.3 K/mm3 6.5-12.3 N RED BLOOD CELL (test code = RBC) 4.06 M/mm3 3.51-4.69 N HEMOGLOBIN (test code = HGB) 10.3 g/dL 10.1-13.8 N HEMATOCRIT (test code = HCT) 33.1 % 32.5-41.8 N MEAN CELL VOLUME (test code = MCV) 81.5 fL 84.6-96.6 L MEAN CELL HGB (test code = MCH) 25.4 pg 27.3-33.9 L MEAN CELL HGB CONCETRATION ( test code = MCHC) 31.1 gm/dL 32.0-34.2 L RED CELL DISTRIBUTION WIDTH (test code = RDW) 13.6 % 12.2-16.3 N PLATELET COUNT (test code = PLT) 343 K/mm3 134-363 N MEAN PLATELET VOLUME (test c ode = MPV) 11.4 fL 9.2-12.7 N NEUTROPHIL % (test code = NT%) 77.0 % 57.9-77.3 N LYMPHOCYTE % (test code = LY%) 16.3 % 14.5-29.7 N MONOCYTE % (test code = MO%) 5.9 % 3.6-10.2 N EOSINOPHIL % (test code = EO%) 0.2 % 0.0-3.0 N BASOPHIL % (test code = BA%) 0.3 % 0.1-0.9 N NEUTROPHIL # (test code = NT#) 7.9 K/mm3 LYMPHOCYTE # (test code = LY#) 1.7 K/mm3 MONOCYTE # (test code = MO#) 0.6 K/mm3 EOSINOPHIL # (test code = EO#) 0.02 K/mm3 BASOPHIL # (test code = BA#) 0.0 K/mm3 RBC MORPHOLOGY REQUIRED (daisy t code = RBCM) NORMAL NORMAL PLATELET MORPHOLOGY REQUIRED (test code = PLTMR) NORMAL NORMAL SURGICAL [id number] 13:27:00 RUN DATE: 05/17/19 Becki LUCERO *LIVE* PAGE 1 RUN TIME: 1327 Specimen Inquiry RUN USER: INTERFACE ------- -----PATIENT: KVNG CHIANG LOC: P.5N POD B U #: [id number] AGE/SX: 29/F ROOM: [facility] RE05/15/19REG DR: Gilma Cardoza : 91 BED: 1 DIS: 05/16/19 STATUS: DIS IN TLOC: - SPEC #:[id number] RECD: 05/15/19 STATUS: ЕКАТЕРИНА SHANE #: [id number] MARTHA: 05/15/19-[address]: Gilma Cardoza MD ENTERED: 05/15/19 SP TYPE: SURG OTHR DR: ORDERED: PATHGM5/2, PATH SPEC, HE STAIN/2, IRON STAIN, PAS STAIN, TRICHROME STAIN, PAS WO.STAIN HISTOLOGY: TISSUE ID BLK PCS ANIYA LEV / PROCEDURE DISPOSITION ____ ___ ___ ___ ___ LIVER WEDGE BX A 1 2 1 STOMACH RESECT B 2 1 TISSUES: A. LIVER WEDGE BIOPSY - Liver Biopsy B. STOMACH SUBTOTAL RESECTION - Partial Stomach CLINICAL HISTORY Morbid Obesity COMMENT Overall, the findings ar e consistent with fatty liver disease without steatohepatitis. There is relatively abundant steatosis, but without hepatocyte ballooning or lobular inflammation. Mild fibrosis is seen and is centeredaround the central veins. No significant portal tract [...] no pathologic change. CONTINUED ON NEXT PAGE RUN DATE: 05/17/19 Becki LUCERO *LIVE* PAGE 2 RUN TIME: 1327 Specimen Inquiry RUN USER: INTERFACE ------ ------SPEC #: [id number] PATIENT: KVNG CHIANGWoody #[id number] (Continued) GROSS DESCRIPTION A- LIVER BIOPSY: Received in formalin labeled "liver biopsy" is a single wedge- shaped portion of liver tissue (1.4 x 0.9 x0.3 cm). The specimen is entirely submitted in a single cassette. B-PARTIAL STOMACH: Received in formalin labeled "partial stomach" is a sleeve gastrectomy specimen (22.5 cm x 4.5 x 2.0 cm). The serosal surface is ndiaye-pink, smooth and glistening. The serosal surface is ndiaye- pink velvety with a normal rugal folding pattern. No masses or lesions are seen. Brush Clearer Surveying sections are submitted in cassettes B1-B2. [facility]/eb MICROSCOPIC DESCRIPTION Microscopic performed. Signed SIGNATURE ON FILE Addie Crain L09/ 1327 END OF REPORT BASIC METABOLIC [id number] 07:01:00* Test Item Value Reference Range Interpretation Comme nts SODIUM (test code = NA) 139 MMOL/L 136-143 N POTASSIUM (test code = K) 4.3 MMOL/L 3.5-5.1 N CHLORIDE (test code = CL) 106 MMOL/L 98-107 CARBON DIOXIDE (test code = CO2) 14 mmol/L 24-31 L GLUCOSE (test code = GLU) 124 mg/dL 70-104 H BLOOD UREA NITROGEN (test code = BUN) 3.8 MG/DL 7.0-21.0 L GLOMERULAR FILTRATION RATE (test code = GFR) >=60 max estimate >60 The estimated glomerular filtration rate is computed usingpatient race, age (>18), sex, and serum creatinine. If anyof the needed data elements are missing the Laboratory cannot compute an estimation of the glomerular filtration rate. CREATININE (test code = CREAT) 0.5 mg/dL 0.8-1.5 L CALCIUM (test code = CA) 9.3 mg/dL 8.8-10.2 N [id number] 06:46:00* Test Item Value Reference Range Interpretation Comme nts PHOSPHOROUS (test code = PHOS) 3.0 mg/dL 2.7-4.5 N [id number] 06:44:00* Test Item Value Reference Range Interpretation Comme nts MAGNESIUM (test code = MAG) 2.3 mg/dL 1.4-2.6 N CBC W/AUTO [id number] 06:32:00* Test Item Value Reference Range Interpretation Comme nts WHITE BLOOD CELL (test code = WBC) 11.5 x10 3/uL 4.8-10.8 H RED BLOOD CELL (test code = RBC) 4.64 x10 6/uL 4.20-5.40 N HEMOGLOBIN (test code = HGB) 12.6 g/dL 14.5-20 L HEMATOCRIT (test code = HCT) 41.0 % 37.0-47.0 N MEAN CELL VOLUME (test code = MCV) 88.4 fL 81.0-99.0 N MEAN CELL HGB (test code = MCH) 27.2 pg 27-31 N MEAN CELL HGB CONCENTRATION (test code = MCHC) 30.7 G/DL 33-36.5 L RED CELL DISTRIBUTION WIDTH (test code = RDW) 13.6 % 12.9-16.9 N PLATELET COUNT (test code = PLT) 308 150-440 N MEAN PLATELET VOLUME (test c ode = MPV) 10.8 fL 8.9-12.4 N NEUTROPHIL % (test code = NT%) 75.5 [...] 0.02 x10 3/uL 0.0-0.20 N HCG SERUM [id number] 08:48:00* Test Item Value Reference Range Interpretation Comme nts HCG SERUM QUAL (test code = HCGQL) NEGATIVE NEGATIVE DATE OF LAST MENSTRUAL PERIOD: 03/29/19BASIC METABOLIC [id number] 15:54:00 * Test Item Value Reference Range Interpretation Comme nts SODIUM (test code = NA) 135 MMOL/L 136-143 L POTASSIUM (test code = K) 4.2 MMOL/L 3.5-5.1 N CHLORIDE (test code = CL) 96 MMOL/L 98-107 L CARBON DIOXIDE (test code = CO2) 26 mmol/L 24-31 N GLUCOSE (test code = GLU) 140 mg/dL 70-104 H BLOOD UREA NITROGEN (test code = BUN) 10.2 MG/DL 7.0-21.0 N GLOMERULAR FILTRATION RATE (test code = GFR) >=60 max estimate >60 The estimated glomerular filtration rate is computed usingpatient race, age (>18), sex, and serum creatinine. If anyof the needed data elements are missing the Laboratory cannot compute an estimation of the glomerular filtration rate. CREATININE (test code = CREAT) 0.4 mg/dL 0.8-1.5 L CALCIUM (test code = CA) 9.3 mg/dL 8.8-10.2 N CBC W/AUTO [id number] 15:44:00* Test Item Value Reference Range Interpretation Comme nts WHITE BLOOD CELL (test code = WBC) 8.0 x10 3/uL 4.8-10.8 N RED BLOOD CELL (test code = RBC) 4.88 x10 6/uL 4.20-5.40 N HEMOGLOBIN (test code = HGB) 13.2 g/dL 14.5-20 L HEMATOCRIT (test code = HCT) 42.0 % 37.0-47.0 N MEAN CELL VOLUME (test code = MCV) 86.1 fL 81.0-99.0 N MEAN CELL HGB (test code = MCH) 27.0 pg 27-31 N MEAN CELL HGB CONCENTRATION (test code = MCHC) 31.4 G/DL 33-36.5 L RED CELL DISTRIBUTION WIDTH (test code = RDW) 13.4 % 12.9-16.9 N PLATELET COUNT (test code = PLT) 324 150-440 N MEAN PLATELET VOLUME (test c ode = MPV) 10.6 fL 8.9-12.4 N NEUTROPHIL % (test code = NT%) 58.5 [...] 0.05 x10 3/uL 0.0-0.20 N CBC W/AUTO [id number] 01:15:00* Test Item Value Reference Range Interpretation Comme nts WHITE BLOOD CELL (test code = WBC) 10.2 K/mm3 3.5-11.0 N RED BLOOD CELL (test code = RBC) 4.86 M/mm3 4.70-6.10 N HEMOGLOBIN (test code = HGB) 13.4 G/DL 10.4-14.9 N HEMATOCRIT (test code = HCT) 40.9 % 31.5-44.1 N MEAN CELL VOLUME (test code = MCV) 84.2 Fl 84.5-98.6 L MEAN CELL HGB (test code = MCH) 27.6 pg 27.0-34.2 N MEAN CELL HGB CONCETRATION ( test code = MCHC) 32.8 G/DL 31.5-34.0 N RED CELL DISTRIBUTION WIDTH (test code = RDW) 13.8 SD 11.5-14.5 N PLATELET COUNT (test code = PLT) 275.0 K/mm3 150-450 N MEAN PLATELET VOLUME (test c ode = MPV) 11.20 fL 7.0-10.5 H NEUTROPHIL % (test code = NT%) 82.0 [...] K/mm3 0.0-0.1 N MANUAL DIFF REQUIRED (test c ode = MDIFF) NO DIFF/SCN CRITERIA UA RFLX MICR CULT IF [id number] 01:12:00* Test Item Value Reference Range Interpretation Comme nts UA COLOR (test code = COLU) YELLOW discript YEL/STRAW UA APPEARANCE (test code = APPU) CLEAR discript CLEAR UA GLUCOSE DIPSTICK (test code = DGLUU) NEGATIVE mg/dL NEG UA BILIRUBIN DIPSTICK (test code = BILU) NEGATIVE mg/dL NEG UA KETONE DIPSTICK (test code = KETU) NEGATIVE mg/dL NEG UA SPECIFIC GRAVITY (test code = SGU) 1.010 SG 1.005-1.030 UA BLOOD DIPSTICK (test code = BALDEMAR) NEGATIVE mg/DL NEG UA PH DIPSTICK (test code = LEONORA) 8.0 pH UNITS 5.0-7.0 A UA PROTEIN DIPSTICK (test code = PROU) 1+ mg/dL NEG A UA UROBILINIOGEN DIPSTICK (test code = URO) 0.2 mg/dL <2.0 UA NITRITE DIPSTICK (test code = CIRA) NEGATIVE SCREEN NEG UA LEUKOCYTE ESTERASE DIPSTICK (test code = LEUU) NEGATIVE Leuk/mcL NEGATIVE UA WBC (test code = WBCU) 1-3 #WBC/HPF 0-3 UA RBC (test code = RBCU) 1-3 #RBC/HPF 0-3 UA SQUAMOUS CELLS (test code = SQU) TRACE /HPF NONE UA CULTURE NEEDED? (test code = UACULT) NO, WBC<10 Criteria Culture CHK less than 18 yrs old, neutropenic, or urological surgery? NOPrimary Indication for Culture: OtherOther Indication: dizzinessUA RFLX MICR CULT IF INDICATED 2019-01-10 00:59:00* Test Item Value Reference Range Interpretation Comme nts UA COLOR (test code = COLU) YELLOW discript YEL/STRAW UA APPEARANCE (test code = APPU) CLEAR discript CLEAR UA GLUCOSE DIPSTICK (test code = DGLUU) NEGATIVE mg/dL NEG UA BILIRUBIN DIPSTICK (test code = BILU) NEGATIVE mg/dL NEG UA KETONE DIPSTICK (test code = KETU) NEGATIVE mg/dL NEG UA SPECIFIC GRAVITY (test code = SGU) 1.010 SG 1.005-1.030 UA BLOOD DIPSTICK (test code = BALDEMAR) NEGATIVE mg/DL NEG UA PH DIPSTICK (test code = LEONORA) 8.0 pH UNITS 5.0-7.0 A UA PROTEIN DIPSTICK (test code = PROU) 1+ mg/dL NEG A UA UROBILINIOGEN DIPSTICK (test code = URO) 0.2 mg/dL <2.0 UA NITRITE DIPSTICK (test code = CIRA) NEGATIVE SCREEN NEG UA LEUKOCYTE ESTERASE DIPSTICK (test code = LEUU) NEGATIVE Leuk/mcL NEGATIVE UA CULTURE NEEDED? (test code = UACULT) Criteria Culture CHK less than 18 yrs old, neutropenic, or urological surgery? NOPrimary Indication for Culture: OtherOther Indication: dizzinessCOMPREHENSIVE METABOLIC PANEL 2019-01-10 00:56:00* Test Item Value Reference Range Interpretation Comme nts SODIUM (test code = NA) 133 mmol/L 134-147 L POTASSIUM (test code = K) 4.2 mmol/L 3.4-5.0 N CHLORIDE (test code = CL) 99 mmol/L 100-108 L CARBON DIOXIDE (test code = CO2) 26 mmol/L 21-32 N ANION GAP (test code = GAP) 8.0 GAP calc 4.0-15.0 N GLUCOSE (test code = GLU) 123 MG/DL 70-110 H BLOOD UREA NITROGEN (test code = BUN) 10 MG/DL 7-18 N GLOMERULAR FILTRATION RATE (test code = GFR) >=60 max estimate estGFR >60 CREATININE (test code = CREAT) 0.7 MG/DL 0.6-1.0 N TOTAL PROTEIN (test code = PROT) 8.3 G/DL 6.4-8.2 H ALBUMIN (test code = ALB) 4.1 G/DL 3.4-5.0 N GLOBULIN (test code = GLOB) 4.2 GM/dL ALBUMIN/GLOBULIN RATIO (test code = A/G) 1.0 RATIO 1.2-2.2 L CALCIUM (test code = CA) 9.4 MG/DL 8.5-10.1 N BILIRUBIN TOTAL (test code = BILT) 0.40 MG/DL 0.2-1.2 N SGOT/AST (test code = AST) 56 Unit/L 15-37 H SGPT/ALT (test code = ALT) 93 Unit/L 12-78 H ALKALINE PHOSPHATASE TOTAL (test code = ALKP) 113 Unit/L 45-117 N COMPREHENSIVE METABOLIC [id number] 17:06:00* Test Item Value Reference Range Interpretation Comme nts SODIUM (test code = NA) 138 mmol/L 134-147 N POTASSIUM (test code = K) 3.6 mmol/L 3.4-5.0 N CHLORIDE (test code = CL) 105 mmol/L 100-108 N CARBON DIOXIDE (test code = CO2) 24 mmol/L 21-32 N ANION GAP (test code = GAP) 9.0 GAP calc 4.0-15.0 N GLUCOSE (test code = GLU) 99 MG/DL 70-110 N BLOOD UREA NITROGEN (test code = BUN) 10 MG/DL 7-18 N GLOMERULAR FILTRATION RATE (test code = GFR) >=60 max estimate estGFR >60 CREATININE (test code = CREAT) 0.5 MG/DL 0.6-1.0 L TOTAL PROTEIN (test code = PROT) 8.4 G/DL 6.4-8.2 H ALBUMIN (test code = ALB) 4.1 G/DL 3.4-5.0 N GLOBULIN (test code = GLOB) 4.3 GM/dL ALBUMIN/GLOBULIN RATIO (test code = A/G) 1.0 RATIO 1.2-2.2 L CALCIUM (test code = CA) 9.2 MG/DL 8.5-10.1 N BILIRUBIN TOTAL (test code = BILT) 0.50 MG/DL 0.2-1.2 N SGOT/AST (test code = AST) 88 Unit/L 15-37 H SGPT/ALT (test code = ALT) 116 Unit/L 12-78 H ALKALINE PHOSPHATASE TOTAL (test code = ALKP) 90 Unit/L 45-117 N LIPID PROFILE (CORONARY RISK)2018-12-02 17:06:00* Test Item Value Reference Range Interpretation Comme nts TRIGLYCERIDES (test code = TRIG) 281 MG/DL 0-150 H CHOLESTEROL (test code = CHOL) 269 MG/DL 133-200 H CHOLESTEROL/HDL RATIO (test code = CHOLHDL) 6.40 RATIO >0 HDL CHOLESTEROL (test code = HDL) 42 MG/DL 40-59 N NON-HDL CHOLESTEROL (test co de = NHDL) 227 mg/dL <130 H LIPOPROTEIN LDL (test code = LDL) 205 MG/DL 0-129 H LDL/HDL (test code = LDL/HDL) 4.88 Ratio 1.48-3.22 Avg H FE W/TOTAL IRON BINDING CAP.2018-12-02 17:06:00* Test Item Value Reference Range Interpretation Comme nts SERUM IRON (test code = IRON) 74 mcG/DL 50-170 N TOTAL IRON BINDING CAPACITY (test code = TIBC) 426 mcG/DL 250-450 N IRON SATURATION (test code = FESAT) 17 % calc 12-57 N VITAMIN B12 [id number] 17:06:00* Test Item Value Reference Range Interpretation Comme nts VITAMIN B12 (test code = VITB12) 851 PG/ML 183-986 N FOLIC ACID (test code = FOL) 24.80 NG/ML 3.10-17.50 H FOLATE RBC [id number] 17:06:00* Test Item Value Reference Range Interpretation Comme nts FOLIC ACID RBC (test code = FOLRBC) 1000 ng/mL >498 Performed At: [facility] [id number] Kyle L MD Ph:[phone] FOLATE RBC INTERP (test code = FOLINT) 397.9 ng/mL Not Estab. FOLATE HEMATOCRIT (test code = FOLHCT) 39.8 % 34.0-46.6 T4 [id number] 17:06:00* Test Item Value Reference Range Interpretation Comme nts T4 FREE (test code = T4F) 0.91 NG/DL 0.89-1.76 N THYROID STIMULATING [id number] 17:06:00* Test Item Value Reference Range Interpretation Comme nts THYROID STIMULATING HORMONE (test code = TSH) 1.920 mcIU/ML 0.340-4.820 N [id number] 17:06:00* Test Item Value Reference Range Interpretation Comme nts CORTISOL (test code = CORTR) 2.9 ug/dL () Cortisol AM 6.2 - 19.4 Cortisol PM 2.3 - 11.9 [id number] 17:06:00* Test Item Value Reference Range Interpretation Comme nts FERRITIN (test code = TESFAYE) 93.3 NG/ML 3.0-105.0 N VITAMIN B1 (THIAMINE)2018-12-02 17:06:00* Test Item Value Reference Range Interpretation Comme nts VITAMIN B1 (THIAMINE) (test code = VITB1) 95.4 nmol/L 66.5-200.0 This test was de veloped and its performance characteristicsdetermined by [facility] [facility]. It has not been cleared orapproved by the Food and Drug Administration.Performed At: [facility] [id number] Andrew MD Ph:[phone] VITAMIN D 21-[id number] 17:06:00* Test Item Value Reference Range Interpretation Comme nts VITAMIN D 25-HYDROXY (test code = VITD25) 15.2 ng/mL 30.0-100.0 A Vitamin D defici ency has been defined by the [employer] of[employer] and an Endocrine Society practice guideline as alevel of serum 25-OH vitamin D less than 20 ng/mL (1,2).The Endocrine Society went on to further define vitamin Dinsufficiency as a level between 21 and 29 ng/mL (2).1. IOM ([employer]ow of Medicine). 2010. Dietary reference intakes for calcium and D. [place]: The National Academies Press.2. Aron MF, Floyd CASTANON, Henok MORGAN, et al. Evaluation, treatment, and prevention of vitamin D deficiency: an Endocrine Society clinical practice guideline. JCEM. 2010; 96(7):1911-30.Performed At: [facility] [address] [id number] Lokesh Mckay MD Ph:[phone] COMPREHENSIVE METABOLIC [id number] 15:13:00* Test Item Value Reference Range Interpretation Comme nts SODIUM (test code = NA) 138 mmol/L 134-147 N POTASSIUM (test code = K) 3.6 mmol/L 3.4-5.0 N CHLORIDE (test code = CL) 105 mmol/L 100-108 N CARBON DIOXIDE (test code = CO2) 24 mmol/L 21-32 N ANION GAP (test code = GAP) 9.0 GAP calc 4.0-15.0 N GLUCOSE (test code = GLU) 99 MG/DL 70-110 N BLOOD UREA NITROGEN (test code = BUN) 10 MG/DL 7-18 N GLOMERULAR FILTRATION RATE (test code = GFR) >=60 max estimate estGFR >60 CREATININE (test code = CREAT) 0.5 MG/DL 0.6-1.0 L TOTAL PROTEIN (test code = PROT) 8.4 G/DL 6.4-8.2 H ALBUMIN (test code = ALB) 4.1 G/DL 3.4-5.0 N GLOBULIN (test code = GLOB) 4.3 GM/dL ALBUMIN/GLOBULIN RATIO (test code = A/G) 1.0 RATIO 1.2-2.2 L CALCIUM (test code = CA) 9.2 MG/DL 8.5-10.1 N BILIRUBIN TOTAL (test code = BILT) 0.50 MG/DL 0.2-1.2 N SGOT/AST (test code = AST) 88 Unit/L 15-37 H SGPT/ALT (test code = ALT) 116 Unit/L 12-78 H ALKALINE PHOSPHATASE TOTAL (test code = ALKP) 90 Unit/L 45-117 N LIPID PROFILE (CORONARY RISK)2018-11-30 15:13:00* Test Item Value Reference Range Interpretation Comme nts TRIGLYCERIDES (test code = TRIG) 281 MG/DL 0-150 H CHOLESTEROL (test code = CHOL) 269 MG/DL 133-200 H CHOLESTEROL/HDL RATIO (test code = CHOLHDL) 6.40 RATIO >0 HDL CHOLESTEROL (test code = HDL) 42 MG/DL 40-59 N NON-HDL CHOLESTEROL (test co de = NHDL) 227 mg/dL <130 H LIPOPROTEIN LDL (test code = LDL) 205 MG/DL 0-129 H LDL/HDL (test code = LDL/HDL) 4.88 Ratio 1.48-3.22 Avg H FE W/TOTAL IRON BINDING CAP.2018-11-30 15:13:00* Test Item Value Reference Range Interpretation Comme nts SERUM IRON (test code = IRON) 74 mcG/DL 50-170 N TOTAL IRON BINDING CAPACITY (test code = TIBC) 426 mcG/DL 250-450 N IRON SATURATION (test code = FESAT) 17 % calc 12-57 N VITAMIN B12 [id number] 15:13:00* Test Item Value Reference Range Interpretation Comme nts VITAMIN B12 (test code = VITB12) 851 PG/ML 183-986 N FOLIC ACID (test code = FOL) 24.80 NG/ML 3.10-17.50 H FOLATE RBC [id number] 15:13:00* Test Item Value Reference Range Interpretation Comme nts FOLIC ACID RBC (test code = FOLRBC) 1000 ng/mL >498 Performed At: [facility] [id number] Kyle L MD Ph:[phone] FOLATE RBC INTERP (test code = FOLINT) 397.9 ng/mL Not Estab. FOLATE HEMATOCRIT (test code = FOLHCT) 39.8 % 34.0-46.6 T4 [id number] 15:13:00* Test Item Value Reference Range Interpretation Comme nts T4 FREE (test code = T4F) 0.91 NG/DL 0.89-1.76 N THYROID STIMULATING [id number] 15:13:00* Test Item Value Reference Range Interpretation Comme nts THYROID STIMULATING HORMONE (test code = TSH) 1.920 mcIU/ML 0.340-4.820 N [id number] 15:13:00* Test Item Value Reference Range Interpretation Comme nts CORTISOL (test code = CORTR) 2.9 ug/dL () Cortisol AM 6.2 - 19.4 Cortisol PM 2.3 - 11.9 [id number] 15:13:00* Test Item Value Reference Range Interpretation Comme nts FERRITIN (test code = TESFAYE) 93.3 NG/ML 3.0-105.0 N VITAMIN B1 (THIAMINE)2018-11-30 15:13:00* Test Item Value Reference Range Interpretation Comme nts VITAMIN B1 (THIAMINE) (test code = VITB1) VITAMIN D [id number] 15:13:00* Test Item Value Reference Range Interpretation Comme nts VITAMIN D 25-HYDROXY (test code = VITD25) 15.2 ng/mL 30.0-100.0 A Vitamin D defici ency has been defined by the [employer] of[employer] and an Endocrine Society practice guideline as alevel of serum 25-OH vitamin D less than 20 ng/mL (1,2).The Endocrine Society went on to further define vitamin Dinsufficiency as a level between 21 and 29 ng/mL (2).1. IOM ([employer] of Medicine). 2010. Dietary reference intakes for calcium and D. [place]: The National Academies Press.2. Aron MF, Floyd [place], Henok MORGAN, et al. Evaluation, treatment, and prevention of vitamin D deficiency: an Endocrine Society clinical practice guideline. JCEM. 2010; 96(7):1911-30.Performed At: [facility] [id number] Lokesh Mckay MD Ph:[phone] COMPREHENSIVE METABOLIC [id number] 11:40:00* Test Item Value Reference Range Interpretation Comme nts SODIUM (test code = NA) 138 mmol/L 134-147 N POTASSIUM (test code = K) 3.6 mmol/L 3.4-5.0 N CHLORIDE (test code = CL) 105 mmol/L 100-108 N CARBON DIOXIDE (test code = CO2) 24 mmol/L 21-32 N ANION GAP (test code = GAP) 9.0 GAP calc 4.0-15.0 N GLUCOSE (test code = GLU) 99 MG/DL 70-110 N BLOOD UREA NITROGEN (test code = BUN) 10 MG/DL 7-18 N GLOMERULAR FILTRATION RATE (test code = GFR) >=60 max estimate estGFR >60 CREATININE (test code = CREAT) 0.5 MG/DL 0.6-1.0 L TOTAL PROTEIN (test code = PROT) 8.4 G/DL 6.4-8.2 H ALBUMIN (test code = ALB) 4.1 G/DL 3.4-5.0 N GLOBULIN (test code = GLOB) 4.3 GM/dL ALBUMIN/GLOBULIN RATIO (test code = A/G) 1.0 RATIO 1.2-2.2 L CALCIUM (test code = CA) 9.2 MG/DL 8.5-10.1 N BILIRUBIN TOTAL (test code = BILT) 0.50 MG/DL 0.2-1.2 N SGOT/AST (test code = AST) 88 Unit/L 15-37 H SGPT/ALT (test code = ALT) 116 Unit/L 12-78 H ALKALINE PHOSPHATASE TOTAL (test code = ALKP) 90 Unit/L 45-117 N LIPID PROFILE (CORONARY RISK)2018-11-30 11:40:00* Test Item Value Reference Range Interpretation Comme nts TRIGLYCERIDES (test code = TRIG) 281 MG/DL 0-150 H CHOLESTEROL (test code = CHOL) 269 MG/DL 133-200 H CHOLESTEROL/HDL RATIO (test code = CHOLHDL) 6.40 RATIO >0 HDL CHOLESTEROL (test code = HDL) 42 MG/DL 40-59 N NON-HDL CHOLESTEROL (test co de = NHDL) 227 mg/dL <130 H LIPOPROTEIN LDL (test code = LDL) 205 MG/DL 0-129 H LDL/HDL (test code = LDL/HDL) 4.88 Ratio 1.48-3.22 Avg H FE W/TOTAL IRON BINDING CAP.2018-11-30 11:40:00* Test Item Value Reference Range Interpretation Comme nts SERUM IRON (test code = IRON) 74 mcG/DL 50-170 N TOTAL IRON BINDING CAPACITY (test code = TIBC) 426 mcG/DL 250-450 N IRON SATURATION (test code = FESAT) 17 % calc 12-57 N VITAMIN B12 [id number] 11:40:00* Test Item Value Reference Range Interpretation Comme nts VITAMIN B12 (test code = VITB12) 851 PG/ML 183-986 N FOLIC ACID (test code = FOL) 24.80 NG/ML 3.10-17.50 H FOLATE RBC [id number] 11:40:00* Test Item Value Reference Range Interpretation Comme nts FOLIC ACID RBC (test code = FOLRBC) FOLATE HEMATOCRIT (test code = FOLHCT) T4 [id number] 11:40:00* Test Item Value Reference Range Interpretation Comme nts T4 FREE (test code = T4F) 0.91 NG/DL 0.89-1.76 N THYROID STIMULATING [id number] 11:40:00* Test Item Value Reference Range Interpretation Comme nts THYROID STIMULATING HORMONE (test code = TSH) 1.920 mcIU/ML 0.340-4.820 N [id number] 11:40:00* Test Item Value Reference Range Interpretation Comme nts CORTISOL (test code = CORTR) 2.9 ug/dL () Cortisol AM 6.2 - 19.4 Cortisol PM 2.3 - 11.9 [id number] 11:40:00* Test Item Value Reference Range Interpretation Comme nts FERRITIN (test code = TESFAYE) 93.3 NG/ML 3.0-105.0 N VITAMIN B1 (THIAMINE)2018-11-30 11:40:00* Test Item Value Reference Range Interpretation Comme nts VITAMIN B1 (THIAMINE) (test code = VITB1) VITAMIN D [id number] 11:40:00* Test Item Value Reference Range Interpretation Comme nts VITAMIN D 25-HYDROXY (test code = VITD25) 15.2 ng/mL 30.0-100.0 A Vitamin D defici ency has been defined by the [employer] and an Endocrine Society practice guideline as alevel of serum 25-OH vitamin D less than 20 ng/mL (1,2).The Endocrine Society went on to further define vitamin Dinsufficiency as a level between 21 and 29 ng/mL (2).1. IOM ([employer]). 2010. Dietary reference intakes for calcium and D. [place]: The National Academies Press.2. Aron MF, Floyd CASTANON, Henok MORGAN, et al. Evaluation, treatment, and prevention of vitamin D deficiency: an Endocrine Society clinical practice guideline. JCEM. 2010; 96(7):1911-30.Performed At: [facility] [address] [id number] Lokesh Mckay MD Ph:[phone] COMPREHENSIVE METABOLIC [id number] 06:17:00* Test Item Value Reference Range Interpretation Comme nts SODIUM (test code = NA) 138 mmol/L 134-147 N POTASSIUM (test code = K) 3.6 mmol/L 3.4-5.0 N CHLORIDE (test code = CL) 105 mmol/L 100-108 N CARBON DIOXIDE (test code = CO2) 24 mmol/L 21-32 N ANION GAP (test code = GAP) 9.0 GAP calc 4.0-15.0 N GLUCOSE (test code = GLU) 99 MG/DL 70-110 N BLOOD UREA NITROGEN (test code = BUN) 10 MG/DL 7-18 N GLOMERULAR FILTRATION RATE (test code = GFR) >=60 max estimate estGFR >60 CREATININE (test code = CREAT) 0.5 MG/DL 0.6-1.0 L TOTAL PROTEIN (test code = PROT) 8.4 G/DL 6.4-8.2 H ALBUMIN (test code = ALB) 4.1 G/DL 3.4-5.0 N GLOBULIN (test code = GLOB) 4.3 GM/dL ALBUMIN/GLOBULIN RATIO (test code = A/G) 1.0 RATIO 1.2-2.2 L CALCIUM (test code = CA) 9.2 MG/DL 8.5-10.1 N BILIRUBIN TOTAL (test code = BILT) 0.50 MG/DL 0.2-1.2 N SGOT/AST (test code = AST) 88 Unit/L 15-37 H SGPT/ALT (test code = ALT) 116 Unit/L 12-78 H ALKALINE PHOSPHATASE TOTAL (test code = ALKP) 90 Unit/L 45-117 N LIPID PROFILE (CORONARY RISK)2018-11-30 06:17:00* Test Item Value Reference Range Interpretation Comme nts TRIGLYCERIDES (test code = TRIG) 281 MG/DL 0-150 H CHOLESTEROL (test code = CHOL) 269 MG/DL 133-200 H CHOLESTEROL/HDL RATIO (test code = CHOLHDL) 6.40 RATIO >0 HDL CHOLESTEROL (test code = HDL) 42 MG/DL 40-59 N NON-HDL CHOLESTEROL (test co de = NHDL) 227 mg/dL <130 H LIPOPROTEIN LDL (test code = LDL) 205 MG/DL 0-129 H LDL/HDL (test code = LDL/HDL) 4.88 Ratio 1.48-3.22 Avg H FE W/TOTAL IRON BINDING CAP.2018-11-30 06:17:00* Test Item Value Reference Range Interpretation Comme nts SERUM IRON (test code = IRON) 74 mcG/DL 50-170 N TOTAL IRON BINDING CAPACITY (test code = TIBC) 426 mcG/DL 250-450 N IRON SATURATION (test code = FESAT) 17 % calc 12-57 N VITAMIN B12 [id number] 06:17:00* Test Item Value Reference Range Interpretation Comme nts VITAMIN B12 (test code = VITB12) 851 PG/ML 183-986 N FOLIC ACID (test code = FOL) 24.80 NG/ML 3.10-17.50 H FOLATE RBC [id number] 06:17:00* Test Item Value Reference Range Interpretation Comme nts FOLIC ACID RBC (test code = FOLRBC) FOLATE RBC INTERP (test code = FOLINT) FOLATE HEMATOCRIT (test code = FOLHCT) T4 [id number] 06:17:00* Test Item Value Reference Range Interpretation Comme nts T4 FREE (test code = T4F) 0.91 NG/DL 0.89-1.76 N THYROID STIMULATING [id number] 06:17:00* Test Item Value Reference Range Interpretation Comme nts THYROID STIMULATING HORMONE (test code = TSH) 1.920 mcIU/ML 0.340-4.820 N [id number] 06:17:00* Test Item Value Reference Range Interpretation Comme nts CORTISOL (test code = CORTR) 2.9 ug/dL () Cortisol AM 6.2 - 19.4 Cortisol PM 2.3 - 11.9 [id number] 06:17:00* Test Item Value Reference Range Interpretation Comme nts FERRITIN (test code = TESFAYE) 93.3 NG/ML 3.0-105.0 N VITAMIN B1 (THIAMINE)2018-11-30 06:17:00* Test Item Value Reference Range Interpretation Comme nts VITAMIN B1 (THIAMINE) (test code = VITB1) VITAMIN D [id number] 06:17:00* Test Item Value Reference Range Interpretation Comme nts VITAMIN D 25-HYDROXY (test c ode = VITD25) COMPREHENSIVE METABOLIC [id number] 06:17:00* Test Item Value Reference Range Interpretation Comme nts SODIUM (test code = NA) 138 mmol/L 134-147 N POTASSIUM (test code = K) 3.6 mmol/L 3.4-5.0 N CHLORIDE (test code = CL) 105 mmol/L 100-108 N CARBON DIOXIDE (test code = CO2) 24 mmol/L 21-32 N ANION GAP (test code = GAP) 9.0 GAP calc 4.0-15.0 N GLUCOSE (test code = GLU) 99 MG/DL 70-110 N BLOOD UREA NITROGEN (test code = BUN) 10 MG/DL 7-18 N GLOMERULAR FILTRATION RATE (test code = GFR) >=60 max estimate estGFR >60 CREATININE (test code = CREAT) 0.5 MG/DL 0.6-1.0 L TOTAL PROTEIN (test code = PROT) 8.4 G/DL 6.4-8.2 H ALBUMIN (test code = ALB) 4.1 G/DL 3.4-5.0 N GLOBULIN (test code = GLOB) 4.3 GM/dL ALBUMIN/GLOBULIN RATIO (test code = A/G) 1.0 RATIO 1.2-2.2 L CALCIUM (test code = CA) 9.2 MG/DL 8.5-10.1 N BILIRUBIN TOTAL (test code = BILT) 0.50 MG/DL 0.2-1.2 N SGOT/AST (test code = AST) 88 Unit/L 15-37 H SGPT/ALT (test code = ALT) 116 Unit/L 12-78 H ALKALINE PHOSPHATASE TOTAL (test code = ALKP) 90 Unit/L 45-117 N LIPID PROFILE (CORONARY RISK)2018-11-30 06:17:00* Test Item Value Reference Range Interpretation Comme nts TRIGLYCERIDES (test code = TRIG) 281 MG/DL 0-150 H CHOLESTEROL (test code = CHOL) 269 MG/DL 133-200 H CHOLESTEROL/HDL RATIO (test code = CHOLHDL) 6.40 RATIO >0 HDL CHOLESTEROL (test code = HDL) 42 MG/DL 40-59 N NON-HDL CHOLESTEROL (test co de = NHDL) 227 mg/dL <130 H LIPOPROTEIN LDL (test code = LDL) 205 MG/DL 0-129 H LDL/HDL (test code = LDL/HDL) 4.88 Ratio 1.48-3.22 Avg H FE W/TOTAL IRON BINDING CAP.2018-11-30 06:17:00* Test Item Value Reference Range Interpretation Comme nts SERUM IRON (test code = IRON) 74 mcG/DL 50-170 N TOTAL IRON BINDING CAPACITY (test code = TIBC) 426 mcG/DL 250-450 N IRON SATURATION (test code = FESAT) 17 % calc 12-57 N VITAMIN B12 [id number] 06:17:00* Test Item Value Reference Range Interpretation Comme nts VITAMIN B12 (test code = VITB12) 851 PG/ML 183-986 N FOLIC ACID (test code = FOL) 24.80 NG/ML 3.10-17.50 H FOLATE RBC [id number] 06:17:00* Test Item Value Reference Range Interpretation Comme nts FOLIC ACID RBC (test code = FOLRBC) FOLATE RBC INTERP (test code = FOLINT) FOLATE HEMATOCRIT (test code = FOLHCT) T4 [id number] 06:17:00* Test Item Value Reference Range Interpretation Comme nts T4 FREE (test code = T4F) 0.91 NG/DL 0.89-1.76 N THYROID STIMULATING [id number] 06:17:00* Test Item Value Reference Range Interpretation Comme nts THYROID STIMULATING HORMONE (test code = TSH) 1.920 mcIU/ML 0.340-4.820 N [id number] 06:17:00* Test Item Value Reference Range Interpretation Comme nts CORTISOL (test code = CORTR) 2.9 ug/dL () Cortisol AM 6.2 - 19.4 Cortisol PM 2.3 - 11.9 [id number] 06:17:00* Test Item Value Reference Range Interpretation Comme nts FERRITIN (test code = TESFAYE) 93.3 NG/ML 3.0-105.0 N VITAMIN B1 (THIAMINE)2018-11-30 06:17:00* Test Item Value Reference Range Interpretation Comme nts VITAMIN B1 (THIAMINE) (test code = VITB1) VITAMIN D [id number] 06:17:00* Test Item Value Reference Range Interpretation Comme [facility] VITAMIN D 25-HYDROXY (test code = VITD25) 15.2 ng/mL 30.0-100.0 A Vitamin D defici ency has been defined by the [employer] ofMed[employer] and an Endocrine Society practice guideline as alevel of serum 25-OH vitamin D less than 20 ng/mL (1,2).The Endocrine Society went on to further define vitamin Dinsufficiency as a level between 21 and 29 ng/mL (2).1. IOM ([employer] of Medicine). 2010. Dietary reference intakes for calcium and D. [place]: The National Academies Press.2. Aron MF, Floyd CASTANON, Henok MORGAN, et al. Evaluation, treatment, and prevention of vitamin D deficiency: an Endocrine Society clinical practice guideline. JCEM. 2010; 96(7):1911-30.Performed At: [facility] [id number] Lokesh Mckay MD Ph:[phone] COMPREHENSIVE METABOLIC [id number] 13:33:00* Test Item Value Reference Range Interpretation Comme nts SODIUM (test code = NA) 138 mmol/L 134-147 N POTASSIUM (test code = K) 3.6 mmol/L 3.4-5.0 N CHLORIDE (test code = CL) 105 mmol/L 100-108 N CARBON DIOXIDE (test code = CO2) 24 mmol/L 21-32 N ANION GAP (test code = GAP) 9.0 GAP calc 4.0-15.0 N GLUCOSE (test code = GLU) 99 MG/DL 70-110 N BLOOD UREA NITROGEN (test code = BUN) 10 MG/DL 7-18 N GLOMERULAR FILTRATION RATE (test code = GFR) >=60 max estimate estGFR >60 CREATININE (test code = CREAT) 0.5 MG/DL 0.6-1.0 L TOTAL PROTEIN (test code = PROT) 8.4 G/DL 6.4-8.2 H ALBUMIN (test code = ALB) 4.1 G/DL 3.4-5.0 N GLOBULIN (test code = GLOB) 4.3 GM/dL ALBUMIN/GLOBULIN RATIO (test code = A/G) 1.0 RATIO 1.2-2.2 L CALCIUM (test code = CA) 9.2 MG/DL 8.5-10.1 N BILIRUBIN TOTAL (test code = BILT) 0.50 MG/DL 0.2-1.2 N SGOT/AST (test code = AST) 88 Unit/L 15-37 H SGPT/ALT (test code = ALT) 116 Unit/L 12-78 H ALKALINE PHOSPHATASE TOTAL (test code = ALKP) 90 Unit/L 45-117 N LIPID PROFILE (CORONARY RISK)2018-11-29 13:33:00* Test Item Value Reference Range Interpretation Comme nts TRIGLYCERIDES (test code = TRIG) 281 MG/DL 0-150 H CHOLESTEROL (test code = CHOL) 269 MG/DL 133-200 H CHOLESTEROL/HDL RATIO (test code = CHOLHDL) 6.40 RATIO >0 HDL CHOLESTEROL (test code = HDL) 42 MG/DL 40-59 N NON-HDL CHOLESTEROL (test co de = NHDL) 227 mg/dL <130 H LIPOPROTEIN LDL (test code = LDL) 205 MG/DL 0-129 H LDL/HDL (test code = LDL/HDL) 4.88 Ratio 1.48-3.22 Avg H FE W/TOTAL IRON BINDING CAP.2018-11-29 13:33:00* Test Item Value Reference Range Interpretation Comme nts SERUM IRON (test code = IRON) 74 mcG/DL 50-170 N TOTAL IRON BINDING CAPACITY (test code = TIBC) 426 mcG/DL 250-450 N IRON SATURATION (test code = FESAT) 17 % calc 12-57 N VITAMIN B12 [id number] 13:33:00* Test Item Value Reference Range Interpretation Comme nts VITAMIN B12 (test code = VITB12) 851 PG/ML 183-986 N FOLIC ACID (test code = FOL) 24.80 NG/ML 3.10-17.50 H FOLATE RBC [id number] 13:33:00* Test Item Value Reference Range Interpretation Comme nts FOLIC ACID RBC (test code = FOLRBC) FOLATE RBC INTERP (test code = FOLINT) FOLATE HEMATOCRIT (test code = FOLHCT) T4 [id number] 13:33:00* Test Item Value Reference Range Interpretation Comme nts T4 FREE (test code = T4F) 0.91 NG/DL 0.89-1.76 N THYROID STIMULATING [id number] 13:33:00* Test Item Value Reference Range Interpretation Comme nts THYROID STIMULATING HORMONE (test code = TSH) 1.920 mcIU/ML 0.340-4.820 N [id number] 13:33:00* Test Item Value Reference Range Interpretation Comme nts CORTISOL (test code = CORTR) [id number] 13:33:00* Test Item Value Reference Range Interpretation Comme nts FERRITIN (test code = TESFAYE) 93.3 NG/ML 3.0-105.0 N VITAMIN B1 (THIAMINE)2018-11-29 13:33:00* Test Item Value Reference Range Interpretation Comme nts VITAMIN B1 (THIAMINE) (test code = VITB1) VITAMIN D [id number] 13:33:00* Test Item Value Reference Range Interpretation Comme nts VITAMIN D 25-HYDROXY (test c ode = VITD25) COMPREHENSIVE METABOLIC [id number] 12:52:00* Test Item Value Reference Range Interpretation Comme nts SODIUM (test code = NA) 138 mmol/L 134-147 N POTASSIUM (test code = K) 3.6 mmol/L 3.4-5.0 N CHLORIDE (test code = CL) 105 mmol/L 100-108 N CARBON DIOXIDE (test code = CO2) 24 mmol/L 21-32 N ANION GAP (test code = GAP) 9.0 GAP calc 4.0-15.0 N GLUCOSE (test code = GLU) 99 MG/DL 70-110 N BLOOD UREA NITROGEN (test co de = BUN) 10 MG/DL 7-18 N GLOMERULAR FILTRATION RATE ( test code = GFR) estGFR >60 CREATININE (test code = CREAT) MG/DL 0.6-1.0 TOTAL PROTEIN (test code = PROT) G/DL 6.4-8.2 ALBUMIN (test code = ALB) 4.1 G/DL 3.4-5.0 N GLOBULIN (test code = GLOB) GM/dL ALBUMIN/GLOBULIN RATIO (test code = A/G) RATIO 1.2-2.2 CALCIUM (test code = CA) 9.2 MG/DL 8.5-10.1 N BILIRUBIN TOTAL (test code = BILT) MG/DL 0.2-1.2 SGOT/AST (test code = AST) Unit/L 15-37 SGPT/ALT (test code = ALT) Unit/L 12-78 ALKALINE PHOSPHATASE TOTAL ( test code = ALKP) Unit/L 45-117 LIPID PROFILE (CORONARY RISK)2018-11-29 12:52:00* Test Item Value Reference Range Interpretation Comme nts TRIGLYCERIDES (test code = TRIG) MG/DL 0-150 CHOLESTEROL (test code = CHOL) MG/DL 133-200 CHOLESTEROL/HDL RATIO (test code = CHOLHDL) RATIO >0 HDL CHOLESTEROL (test code = HDL) MG/DL 40-59 NON-HDL CHOLESTEROL (test code = NHDL) mg/dL <130 LIPOPROTEIN LDL (test code = LDL) MG/DL 0-129 LDL/HDL (test code = LDL/HDL) Ratio 1.48-3.22 Avg FE W/TOTAL IRON BINDING CAP.2018-11-29 12:52:00* Test Item Value Reference Range Interpretation Comme nts SERUM IRON (test code = IRON) mcG/DL 50-170 TOTAL IRON BINDING CAPACITY (test code = TIBC) mcG/DL 250-450 IRON SATURATION (test code = FESAT) % calc 12-57 VITAMIN B12 [id number] 12:52:00* Test Item Value Reference Range Interpretation Comme nts VITAMIN B12 (test code = VITB12) PG/ML 183-986 FOLIC ACID (test code = FOL) NG/ML 3.10-17.50 FOLATE RBC [id number] 12:52:00* Test Item Value Reference Range Interpretation Comme nts FOLIC ACID RBC (test code = FOLRBC) FOLATE RBC INTERP (test code = FOLINT) FOLATE HEMATOCRIT (test code = FOLHCT) T4 [id number] 12:52:00* Test Item Value Reference Range Interpretation Comme nts T4 FREE (test code = T4F) NG/DL 0.89-1.76 THYROID STIMULATING [id number] 12:52:00* Test Item Value Reference Range Interpretation Comme nts THYROID STIMULATING HORMONE (test code = TSH) mcIU/ML 0.340-4.820 [id number] 12:52:00* Test Item Value Reference Range Interpretation Comme [facility] CORTISOL (test code = CORTR) TESTOSTERONE FREE AND [id number] 12:52:00* Test Item Value Reference Range Interpretation Comme [facility] TESTOSTERONE (test code = TEST) TESTOSTERONE (FREE) (test code = TESTF) [id number] 12:52:00* Test Item Value Reference Range Interpretation Comme [facility] FERRITIN (test code = TESFAYE) NG/ML 3.0-105.0 VITAMIN B1 (THIAMINE)2018-11-29 12:52:00* Test Item Value Reference Range Interpretation Comme [facility] VITAMIN B1 (THIAMINE) (test code = VITB1) VITAMIN D [id number] 12:52:00* Test Item Value Reference Range Interpretation Comme [facility] VITAMIN D 25-HYDROXY (test c ode = VITD25) GLYCOSYLATED HEMOGLOBIN (HA1C)2018-11-29 12:52:00* Test Item Value Reference Range Interpretation Comme [facility] GLYCOSYLATED HEMOGLOBIN (HA1 C) (test code = GLYHGB) 6.3 % A1C 4.2-6.3 N CBC W/AUTO [id number] 12:35:00* Test Item Value Reference Range Interpretation Comme [facility] WHITE BLOOD CELL (test code = WBC) 8.0 K/mm3 3.5-11.0 N RED BLOOD CELL (test code = RBC) 4.66 M/mm3 4.70-6.10 L HEMOGLOBIN (test code = HGB) 12.7 G/DL 10.4-14.9 N HEMATOCRIT (test code = HCT) 40.2 % 31.5-44.1 N MEAN CELL VOLUME (test code = MCV) 86.3 Fl 84.5-98.6 N MEAN CELL HGB (test code = MCH) 27.3 pg 27.0-34.2 N MEAN CELL HGB CONCETRATION ( test code = MCHC) 31.6 G/DL 31.5-34.0 N RED CELL DISTRIBUTION WIDTH (test code = RDW) 13.9 SD 11.5-14.5 N PLATELET COUNT (test code = PLT) 320.0 K/mm3 150-450 N MEAN PLATELET VOLUME (test c ode = MPV) 10.60 fL 7.0-10.5 H NEUTROPHIL % (test code = NT%) 55.3 [...] K/mm3 0.0-0.1 N MANUAL DIFF REQUIRED (test c ode = MDIFF) NO DIFF/SCN CRITERIA
[2024-08-26 19:14] LABS: SARS-CoV-2 Antigen CONTROL BLUE LINE VIS/BG OK; SARS-CoV-2 Antigen Rapid Res Negative (Negative)
--- NOTE | 2024-08-26 19:39 | EDPHYS ---
Physician Documentation [facility] Name: Forrest More Age: 34 yrs Sex: Female : 1990 Arrival Date: 08/26/2024 Time: 18:19 Bed 6 Private MD: ED Physician Wei Galvan HPI: 08/26 18:36 This 34 yrs old Female presents to ER via Unassigned with complaints of Flu kb Symptoms. 18:36 Pt is a 34 year old female who presents for sore throat, sinus congestion and runny kb nose that started yesterday. Denies cough, fever, chills, bodyaches. . 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 - Infectious Disease History:: Denies. - Social history:: Smoking status: Patient denies any tobacco usage or history of. ROS: 18:36 Constitutional: As per HPI kb Exam: 18:46 Constitutional: This is a well developed, well nourished patient who is awake, alert, kb and in no acute distress. Head/Face: Normocephalic, atraumatic. ENT: Moist Mucous membranes Cardiovascular: Regular rate Respiratory: Respirations even and unlabored. No increased work of breathing. Talking in full sentences Abdomen/GI: Soft, non-tender. No distention Skin: Warm, dry with normal turgor. Normal color. MS/ Extremity: Pulses equal, no cyanosis. Neurovascular intact. Full, normal range of motion. Neuro: Awake and alert, GCS 15, oriented to person, place, time, and situation. Vital Signs: 18:41 BP 143 / 89; Pulse 88; Resp 16; Temp 98.5(O); Pulse Ox 100% on R/A; Weight 97.52 kg; hb Height 5 ft. 4 in. ; Pain 8/10; 20:20 BP 137 / 84; Pulse 85; Resp 18; Pulse Ox 98% on R/A; al5 18:41 Body Mass Index 36.90 (97.52 kg, 162.56 cm) hb 18:41 Pain Scale: Adult hb MDM: 18:23 Medical Screening Exam initiated kb 18:46 Data reviewed: vital signs, nurses notes. kb 19:37 Differential diagnosis: flu, covid, uri, strep. I considered the following discharge kb prescriptions or medication management in the emergency department I discussed and recommended Over The Counter medications, Antibiotics: At this time antibiotics are not recommended, Antivirals: At this time, antivirals are not recommended. Test considered but Not performed: X-ray: chest xray considered but resp even and unlabored, lungs clear bilaterally. Counseling: I had a detailed discussion with the patient and/or guardian regarding the historical points, exam findings, and any diagnostic results supporting the discharge/admit diagnosis, lab results, the need for outpatient follow up, a family practitioner, to return to the emergency department if symptoms worsen or persist or if there are any questions or concerns that arise at home. 08/26 18:28 Order name: SARS-COV-2 Antigen Rapid; Complete Time: 19:15 kb 08/26 18:28 Order name: Flu; Complete Time: 19:19 kb 08/26 18:43 Order name: Strep hb 08/26 19:18 Order name: Throat Culture EDMS Administered Medications: 20:07 Drug: Albuterol Inhalation 2.5 mg Inhalation once Route: Inhalation; al5 20:20 Follow up: Response: No adverse reaction al5 Disposition Summary: 08/26/24 19:38 Discharge Ordered Notes: Location: Home kb Condition: Stable kb Diagnosis - Acute upper respiratory infection, unspecified kb Followup: kb - With: Emergency Department - When: As needed - Reason: Worsening of condition Followup: kb - With: Private Physician - When: 2 - 3 days - Reason: Recheck today's complaints, Continuance of care, Re-evaluation by your physician Discharge Instructions: - Discharge Summary Sheet kb - Upper Respiratory Infection, Adult, [id number] kb Forms: - Medication Reconciliation Form kb - Antibiotic Education kb - Prescription Opioid Use kb - Patient Portal Instructions kb - Leadership Thank You Letter kb Addendum: 08/29/2024 12:41 Co-signature as Attending Physician, Wei Galvan MD I agree with the assessment and c jimenez plan of care. Signatures: Dispatcher [employer] EDMS Mariama De Leon, VON-C DIRECTOR REGULATORY AGENCY-Wei Mcknight MD MD cha Baxter, Heather, RN RN Franchesca Mcgraw RN RN al5 Corrections: (The following items were deleted from the chart) 08/26 18:43 18:43 Group A Streptococcus Rapid [id number] ordered. EDMS EDMS
--- NOTE | 2024-08-26 19:39 | ER ---
Nurse's Notes [facility] Name: Forrest More Age: 34 yrs Sex: Female : 1990 Arrival Date: 08/26/2024 Time: 18:19 Bed 6 Private MD: Diagnosis: Acute upper respiratory infection, unspecified Presentation: 08/26 18:41 Chief complaint: Sinus congestion, and sore throat since last night. Coronavirus hb screen: Client presents with at least one sign or symptom that may indicate coronavirus-19. Standard/surgical mask placed on the client. Provider contacted for isolation considerations. Ebola Screen: No symptoms or risks identified at this time. Initial Sepsis Screen: Does the patient meet any 2 criteria? No. Patient's initial sepsis screen is negative. Does the patient have a suspected source of infection? No. Patient's initial sepsis screen is negative. Risk Assessment: Do you want to hurt yourself or someone else? Patient reports no desire to harm self or others. Onset of symptoms was August 25, 2024. 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 - Infectious Disease History:: Denies. - Social history:: Smoking status: Patient denies any tobacco usage or history of. Screenin:55 [facility] ED Fall Risk Assessment (Adult) History of falling in the last 3 months, al5 including since admission No falls in past 3 months (0 pts) Confusion or Disorientation No (0 pts) Intoxicated or Sedated No (0 pts) Impaired Gait No (0 pts) Mobility Assist Device Used No (0 pt) Altered Elimination No (0 pt) Score/Fall Risk Level 0 - 2 = Low Risk Oriented to surroundings, Maintained a safe environment, Hourly rounding (assess needs \T\ fall precautionary measures) done. Abuse screen: Denies threats or abuse. Denies injuries from another. Nutritional screening: No deficits noted. Tuberculosis screening: No symptoms or risk factors identified. Assessment: 19:55 General: Appears in no apparent distress. Behavior is calm, cooperative. Pain: al5 Complains of pain in throat. Neuro: Level of Consciousness is awake, alert, obeys commands, Oriented to person, place, time, situation. Cardiovascular: Capillary refill < 3 seconds Patient's skin is warm and dry. Respiratory: Airway is patent Respiratory effort is even, unlabored, Respiratory pattern is regular, symmetrical. GI: No signs and/or symptoms were reported involving the gastrointestinal system. : No signs and/or symptoms were reported regarding the genitourinary system. EENT: Reports nasal congestion. Derm: No signs and/or symptoms reported regarding the dermatologic system. Derm: Skin is intact, is healthy with good turgor, Skin is pink, warm \T\ dry. normal. Musculoskeletal: No signs and/or symptoms reported regarding the musculoskeletal system. Vital Signs: 18:41 BP 143 / 89; Pulse 88; Resp 16; Temp 98.5(O); Pulse Ox 100% on R/A; Weight 97.52 kg; hb Height 5 ft. 4 in. ; Pain 8/10; 20:20 BP 137 / 84; Pulse 85; Resp 18; Pulse Ox 98% on R/A; al5 18:41 Body Mass Index 36.90 (97.52 kg, 162.56 cm) hb 18:41 Pain Scale: Adult hb ED Course: 18:22 Patient arrived in ED. im 18:23 [facility]C [facility] kb 18:23 Wei Galvan MD is Attending Physician. kb 18:42 Triage completed. hb 18:42 Arm band placed on. hb 18:45 Strep Sent. kb3 18:45 Flu Sent. kb3 18:45 SARS-COV-2 Antigen Rapid Sent. kb3 19:54 Patient has correct armband on for positive identification. Bed in low position. Call al5 light in reach. Side rails up X 1. Provided Education on: discharge follow up. 19:55 No provider procedures requiring assistance completed. Patient did not have IV access al5 during this emergency room visit. 19:56 Franchesca Mcgraw, RN is Primary Nurse. al5 Administered Medications: 20:07 Drug: Albuterol Inhalation 2.5 mg Inhalation once Route: Inhalation; al5 20:20 Follow up: Response: No adverse reaction al5 Medication: 19:55 VIS not applicable for this client. al5 Outcome: 19:38 Discharge ordered by MD. marshall 20:21 Discharged to home ambulatory, al5 20:21 Condition: good 20:21 Discharge instructions given to patient, Instructed on discharge instructions, follow up and referral plans. Demonstrated understanding of instructions, follow-up care, 20:22 Patient left the ED. al5 Signatures: Mariama De Leon, ANY COMMODITY BUYER-C ANY COMMODITY BUYER-Ckb Tiana Coleman RN GEOVANY Sushila Saleh RN RN kb3 Yulissa De La Rosa Amanda RN RN al5
[2024-08-26] MEDS ORDERED: ALBUTEROL 2.5 MG/3 ML NEB SOL ONE (20:02)
[2024-08-26 20:26] VITALS: TEMP 98.5
[2024-08-26 20:28] VITALS: BP 137/84; O2SAT 98
== END 2024-08-26 20:22 | disposition home or self-care (01) ==
LOC: ER 18:19
DX: J06.9 Acute upper respiratory infection, unspecified (principal); Z11.52 Encounter for screening for COVID-19
CPT/HCPCS: 87070; 36415; 87081; 87804 ×2; 99284; 87811; J7613